=== PATIENT | male | born 1940 | race Caucasian/White ===

== ENCOUNTER → 2016-06-08 | Outpatient (CLI) | payer MEDICARE, OTHER ==
[~2016-06-08] MED LIST: ASPI-875 PO; ATOR40TA70 PO; CLOP75TA69 PO; FISH OIL PO; LISI-556 PO; LISI10TA PO; METO25TA PO; METO25TA2 PO; NITR0.3T6 SL; NITR0.4T39 SL; NITR0.6T5 SL; NITR12SP6 SL; OMEG-109 PO; OMEG1CAP51 PO; OMEP20CA12 PO; ONDN4T PO; OXYC-197 PO; OXYC-471 PO; PANT40TA3 PO; PRAV40TA PO; PRAV40TA2 PO
--- NOTE | 2016-06-08 17:00 | Diagnostic Imaging Report ---
PROCEDURE: MRI right joint upper extremity without contrast. TECHNIQUE: Multiplanar, multisequence non contrast-enhanced MRI of the right upper extremity was accomplished. INDICATION: Right shoulder pain. FINDINGS: There is no os acromiale or Hill-Sachs deformity. There is a slightly laterally downsloping configuration of the acromion. There is acromioclavicular joint osteoarthritis with subchondral edema seen and small inferior osteophytes. There is only minimal impression upon the underlying myotendinous junction of the supraspinatus at the level of these osteophytes. The rotator cuff demonstrates mild tendinosis within the distal supraspinatus and infraspinatus tendons with no significant tear. The subscapularis tendon demonstrates an intrasubstance tear within the distal fibers. There is mild medial subluxation of the long head tendon of the supraspinatus towards the tear. There is also mild increased signal within the proximal aspect of this tendon near the glenoid anchor compatible with degeneration or partial intrasubstance tear. The glenoid labrum demonstrates areas of increased signal may relate to degeneration. The muscles around the shoulder have normal signal and bulk. No significant joint effusion. There is minimal amount of fluid in the subacromial subdeltoid bursa. IMPRESSION: 1. There is supraspinatus and infraspinatus tendinosis with no significant tear. 2. Tendinosis and distal intrasubstance tear within the subscapularis associated with medial subluxation of the long head biceps tendon. The proximal long head biceps tendon also demonstrates abnormal internal signal compatible with a partial tear. 3. 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 Dictated by: Dictated on workstation # [id number]
== END ==
LOC: RAD 15:52
PROVIDERS: ATTEND Nurse Practitioner
DX: M75.111 Incomplete rotator cuff tear or rupture of right shoulder, not specified as traumatic (principal)
CPT/HCPCS: 73221

== ENCOUNTER 2016-07-06 11:59 | Outpatient (CLI) | payer MEDICARE, OTHER ==
[~2016-07-06] VITALS: Ht 185.4 cm; Wt 103.9 kg
[~2016-07-06 11:59] MED LIST changes: -OXYC-471 PO
--- OUTSIDE RECORDS SUMMARY | 2016-07-06 12:04 | XMS REPORT | Continuity of Care Document ---
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 03/30/2013 LISETH PRETTY MD Ot 401.9 HYPERTENSION NOS 03/30/2013 LISETH PRETTY MD Ot 411.1 INTERMED CORONARY SYND 03/30/2013 LISETH PRETTY MD Ot 412 OLD MYOCARDIAL INFARCT 03/30/2013 LISETH PRETTY MD Ot 414.01 CORONARY ATHEROSCLEROSIS OF [place] CORON 03/30/2013 LISETH PRETTY MD Ot 433.10 CAROTID ARTERY OCCLUSION W O CEREBRAL IN 03/30/2013 LISETH PRETTY MD Ot 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.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 03/30/2013 LISETH PRETTY MD Ot 996.72 OTH COMPLICATIONS DUE TO OTH CARD DEVICE 03/30/2013 LISETH PRETTY MD Ot V15.82 HISTORY OF TOBACCO USE 03/30/2013 LISETH PRETTY MD Ot V17.3 FAM HX-ISCHEM HEART DIS 03/30/2013 LISETH PRETTY MD Ot V45.82 PERCUTANEOUS TRANSLUM CORON ANGIOPLASTY 10/24/2014 RICHELLE CASE Ot 272.4 10/24/2014 RICHELLE CASE Ot 401.9 10/24/2014 RICHELLE CASE Ot 414.9 10/24/2014 RICHELLE CASE Ot 427.89 10/24/2014 RICHELLE CASE Ot 433.10 10/24/2014 RICHELLE CASE Ot 272.4 10/24/2014 RICHELLE CASE Ot 401.9 10/24/2014 RICHELLE CASE Ot 414.00 10/24/2014 RICHELLE CASE Ot 427.89 10/24/2014 RICHELLE CASE Ot 433.10 09/10/2015 Ot 401.9 HYPERTENSION NOS 09/10/2015 Ot 414.00 CORON ATHEROSCLER NOS TYPE VESSEL, NATIV 09/10/2015 VIKTORIYA ALONZO, CRIS Nelson Ot 272.4 HYPERLIPIDEMIA NEC/NOS 09/10/2015 VIKTORIYA ALONZO, CRIS M Ot 401.9 HYPERTENSION NOS 09/10/2015 VIKTORIYA ALONZO, CRIS M Ot 562.10 DIVERTICULOSIS COLON (W/O MENT OF HEMORR 09/10/2015 VIKTORIYA ALONZO, CRIS M Ot V76.51 SCREEN MAL NEOP-COLON 09/10/2015 VIKTORIYA ALONZO, CRIS M Ot V72.84 EXAM PRE-OPERATIVE NOS 09/10/2015 RICHELLE CASE Ot 272.4 HYPERLIPIDEMIA NEC/NOS 09/10/2015 RICHELLE CASE Ot 278.00 OBESITY, NOS 09/10/2015 RICHELLE CASE Ot 401.9 HYPERTENSION NOS 09/10/2015 RICHELLE CASE Ot 414.00 CORON ATHEROSCLER NOS TYPE VESSEL, NATIV 09/10/2015 RICHELLE CASE Ot 424.1 AORTIC VALVE DISORDER 09/10/2015 RICHELLE CASE Ot 429.9 HEART DISEASE NOS 09/10/2015 RICHELLE CASE Ot 433.10 CAROTID ARTERY OCCLUSION W O CEREBRAL IN 09/10/2015 RICHELLE CASE Ot 782.3 EDEMA 09/10/2015 RICHELLE CASE Ot 272.4 HYPERLIPIDEMIA NEC/NOS 09/10/2015 RICHELLE CASE Ot 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 09/10/2015 RICHELLE CASE Ot 397.0 TRICUSPID VALVE DISEASE 09/10/2015 MARIELLE WARREN RICHELLE Alina Ot 401.9 HYPERTENSION NOS 09/10/2015 MARIELLE WARREN RICHELLE Alina Ot 414.00 CORON ATHEROSCLER NOS TYPE VESSEL, NATIV 09/10/2015 MARIELLE WARREN RICHELLE Alina Ot 433.10 CAROTID ARTERY OCCLUSION W O CEREBRAL IN 09/10/2015 MARIELLE WARREN RICHELLE K Ot 782.3 EDEMA 09/10/2015 MARIELLE WARREN RICHELLE K Ot 793.2 NOSP (ABN) FINDINGS ON RADIOLOGICAL OT 09/10/2015 MARIELLE WARREN RICHELLE K Ot 272.4 HYPERLIPIDEMIA NEC/NOS 09/10/2015 MARIELLE WARREN RICHELLE K Ot 401.9 HYPERTENSION NOS 09/10/2015 MARIELLE WARREN RICHELLE Alina Ot 414.9 CHR ISCHEMIC HRT DIS NOS 09/10/2015 MARIELLE WARREN RICHELLE K Ot 427.89 CARDIAC DYSRHYTHMIAS NEC 09/10/2015 MARIELLE WARREN RICHELLE K Ot 433.10 CAROTID ARTERY OCCLUSION W O CEREBRAL IN 09/10/2015 MARIELLE WARREN RICHELLE K Ot 272.4 HYPERLIPIDEMIA NEC/NOS 09/10/2015 MARIELLE WARREN RICHELLE K Ot 401.9 HYPERTENSION NOS 09/10/2015 MARIELLE WARREN RICHELLE Alina Ot 414.00 CORON ATHEROSCLER NOS TYPE VESSEL, NATIV 09/10/2015 MARIELLE WARREN RICHELLE Alina Ot 427.89 CARDIAC DYSRHYTHMIAS NEC 09/10/2015 MARIELLE WARREN RICHELLE Alina Ot 433.10 CAROTID ARTERY OCCLUSION W O CEREBRAL IN 09/10/2015 CRIS SADLER MD Ot K43.9 VENTRAL HERNIA WITHOUT OBSTRUCTION OR GA 09/10/2015 CRIS SADLER MD Ot Z01.812 ENCOUNTER FOR PREPROCEDURAL LABORATORY E 09/10/2015 CRIS SADLER MD Ot Z11.2 ENCOUNTER FOR SCREENING FOR OTHER BACTER 09/13/2015 CRIS SADLER MD Ot K43.9 VENTRAL HERNIA WITHOUT OBSTRUCTION OR GA 09/13/2015 CRIS SADLER MD Ot Z01.812 ENCOUNTER FOR PREPROCEDURAL LABORATORY E 09/13/2015 CRIS SADLER MD Ot Z11.2 ENCOUNTER FOR SCREENING FOR OTHER BACTER 09/13/2015 VIKTORIYA ALONZO, CRIS Nelson Ot K43.9 VENTRAL HERNIA WITHOUT OBSTRUCTION OR GA 09/14/2015 VIKTORIYA ALONZO, CRIS Nelson Ot K43.9 VENTRAL HERNIA WITHOUT OBSTRUCTION OR GA 09/14/2015 VIKTORIYA ALONZO, CRIS Nelson Ot K43.9 VENTRAL HERNIA WITHOUT OBSTRUCTION OR GA 09/17/2015 Ot 401.9 HYPERTENSION NOS 09/17/2015 Ot 414.00 CORON ATHEROSCLER NOS TYPE VESSEL, NATIV 09/17/2015 VIKTORIYA ALONZO, CRIS Nelson Ot 272.4 HYPERLIPIDEMIA NEC/NOS 09/17/2015 VIKTORIYA ALONZO, CRIS Nelson Ot 401.9 HYPERTENSION NOS 09/17/2015 VIKTORIYA ALONZO, CRIS Nelson Ot 562.10 DIVERTICULOSIS COLON (W/O MENT OF HEMORR 09/17/2015 VIKTORIYA ALONZO, CRIS Nelson Ot V76.51 SCREEN MAL NEOP-COLON 09/17/2015 VIKTORIYA ALONZO, CRIS Nelson Ot V72.84 EXAM PRE-OPERATIVE NOS 09/17/2015 RICHELLE CASE Ot 272.4 HYPERLIPIDEMIA NEC/NOS 09/17/2015 RICHELLE CASE Ot 278.00 OBESITY, NOS 09/17/2015 RICHELLE CASE Ot 401.9 HYPERTENSION NOS 09/17/2015 RICHELLE CASE Ot 414.00 CORON ATHEROSCLER NOS TYPE VESSEL, NATIV 09/17/2015 RICHELLE CASE Ot 424.1 AORTIC VALVE DISORDER 09/17/2015 RICHELLE CASE Ot 429.9 HEART DISEASE NOS 09/17/2015 RICHELLE CASE Ot 433.10 CAROTID ARTERY OCCLUSION W O CEREBRAL IN 09/17/2015 RICHELLE CASE Ot 782.3 EDEMA 09/17/2015 RICHELLE CASE Ot 272.4 HYPERLIPIDEMIA NEC/NOS 09/17/2015 RICHELLE CASE Ot 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 09/17/2015 RICHELLE CASE Ot 397.0 TRICUSPID VALVE DISEASE 09/17/2015 RICHELLE CASE Ot 401.9 HYPERTENSION NOS 09/17/2015 RICHELLE CASE Ot 414.00 CORON ATHEROSCLER NOS TYPE VESSEL, NATIV 09/17/2015 RICHELLE CASE Ot 433.10 CAROTID ARTERY OCCLUSION W O CEREBRAL IN 09/17/2015 RICHELLE CASE Ot 782.3 EDEMA 09/17/2015 RICHELLE CASE Ot 793.2 NOSP (ABN) FINDINGS ON RADIOLOGICAL OT 09/17/2015 RICHELLE CASE Ot 272.4 HYPERLIPIDEMIA NEC/NOS 09/17/2015 RICHELLE CASE Ot 401.9 HYPERTENSION NOS 09/17/2015 RICHELLE CASE Ot 414.9 CHR ISCHEMIC HRT DIS NOS 09/17/2015 RICHELLE CASE Ot 427.89 CARDIAC DYSRHYTHMIAS NEC 09/17/2015 RICHELLE CASE Ot 433.10 CAROTID ARTERY OCCLUSION W O CEREBRAL IN 09/17/2015 RICHELLE CASE Ot 272.4 HYPERLIPIDEMIA NEC/NOS 09/17/2015 RICHELLE CASE Ot 401.9 HYPERTENSION NOS 09/17/2015 RICHELLE CASE Ot 414.00 CORON ATHEROSCLER NOS TYPE VESSEL, NATIV 09/17/2015 RICHELLE CASE Ot 427.89 CARDIAC DYSRHYTHMIAS NEC 09/17/2015 RICHELLE CASE Ot 433.10 CAROTID ARTERY OCCLUSION W O CEREBRAL IN 09/24/2015 VIKTORIYA ALONZO, CRIS Nelson Ot E78.0 PURE HYPERCHOLESTEROLEMIA 09/24/2015 VIKTORIYA ALONZO, CRIS Nelson Ot E86.0 DEHYDRATION 09/24/2015 VIKTORIYA ALONZO, CRIS Nelson Ot I10 ESSENTIAL (PRIMARY) HYPERTENSION 09/24/2015 VIKTORIYA ALONZO, CRIS Nelson Ot I25.10 ATHSCL HEART DISEASE OF [place] CORONARY 09/24/2015 VIKTORIYA ALONZO, CRIS Nelson Ot K21.9 GASTRO-ESOPHAGEAL REFLUX DISEASE WITHOUT 09/24/2015 VIKTORIYA ALONZO, CRIS Nelson Ot K56.0 PARALYTIC ILEUS 09/24/2015 VIKTORIYA ALONZO, CRIS Nelson Ot K91.3 POSTPROCEDURAL INTESTINAL OBSTRUCTION 09/24/2015 VIKTORIYA ALONZO, CRIS Nelson Ot K91.89 OTH POSTPROCEDURAL COMPLICATIONS AND DIS 09/24/2015 VIKTORIYA ALONZO, CRIS Nelson Ot Z87.891 PERSONAL HISTORY OF NICOTINE DEPENDENCE 09/24/2015 VIKTORIYA ALONZO, CRIS Nelson Ot Z95.5 PRESENCE OF CORONARY ANGIOPLASTY IMPLANT 11/10/2015 VIKTORIYA ALONZO, CRIS Nelson Ot K43.9 VENTRAL HERNIA WITHOUT OBSTRUCTION OR GA 02/23/2016 Ot 401.9 HYPERTENSION NOS 02/23/2016 Ot 414.00 CORON ATHEROSCLER NOS TYPE VESSEL, NATIV 02/23/2016 VIKTORIYA ALONZO, CRIS Nelson Ot 272.4 HYPERLIPIDEMIA NEC/NOS 02/23/2016 VIKTORIYA ALONZO, CRIS Nelson Ot 401.9 HYPERTENSION NOS 02/23/2016 VIKTORIYA ALONZO, CRIS Nelson Ot 562.10 DIVERTICULOSIS COLON (W/O MENT OF HEMORR 02/23/2016 VIKTORIYA ALONZO, CRIS Nelson Ot V76.51 SCREEN MAL NEOP-COLON 02/23/2016 VIKTORIYA ALONZO, CRIS Nelson Ot V72.84 EXAM PRE-OPERATIVE NOS 02/23/2016 RICHELLE CASE Ot 272.4 HYPERLIPIDEMIA NEC/NOS 02/23/2016 RICHELLE CASE Ot 278.00 OBESITY, NOS 02/23/2016 RICHELLE CASE Ot 401.9 HYPERTENSION NOS 02/23/2016 RICHELLE CASE Ot 414.00 CORON ATHEROSCLER NOS TYPE VESSEL, NATIV 02/23/2016 RICHELLE CASE Ot 424.1 AORTIC VALVE DISORDER 02/23/2016 RICHELLE CASE Ot 429.9 HEART DISEASE NOS 02/23/2016 RICHELLE CASE Ot 433.10 CAROTID ARTERY OCCLUSION W O CEREBRAL IN 02/23/2016 RICHELLE CASE Ot 782.3 EDEMA 02/23/2016 RICHELLE CASE Ot 272.4 HYPERLIPIDEMIA NEC/NOS 02/23/2016 RICHELLE CASE Ot 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 02/23/2016 RICHELLE CASE Ot 397.0 TRICUSPID VALVE DISEASE 02/23/2016 RICHELLE CASE Ot 401.9 HYPERTENSION NOS 02/23/2016 RICHELLE CASE Ot 414.00 CORON ATHEROSCLER NOS TYPE VESSEL, NATIV 02/23/2016 RICHELLE CASE Ot 433.10 CAROTID ARTERY OCCLUSION W O CEREBRAL IN 02/23/2016 RICHELLE CASE Ot 782.3 EDEMA 02/23/2016 RICHELLE CASE Ot 793.2 NOSP (ABN) FINDINGS ON RADIOLOGICAL OT 02/23/2016 RICHELLE CASE Ot 272.4 HYPERLIPIDEMIA NEC/NOS 02/23/2016 RICHELLE CASE Ot 401.9 HYPERTENSION NOS 02/23/2016 RICHELLE CASE Ot 414.9 CHR ISCHEMIC HRT DIS NOS 02/23/2016 RICHELLE CASE Ot 427.89 CARDIAC DYSRHYTHMIAS NEC 02/23/2016 RICHELLE CASE Ot 433.10 CAROTID ARTERY OCCLUSION W O CEREBRAL IN 02/23/2016 RICHELLE CASE Ot 272.4 HYPERLIPIDEMIA NEC/NOS 02/23/2016 RICHELLE CASE Ot 401.9 HYPERTENSION NOS 02/23/2016 RICHELLE CASE Ot 414.00 CORON ATHEROSCLER NOS TYPE VESSEL, NATIV 02/23/2016 RICHELLE CASE Ot 427.89 CARDIAC DYSRHYTHMIAS NEC 02/23/2016 RICHELLE CASE Ot 433.10 CAROTID ARTERY OCCLUSION W O CEREBRAL IN 02/23/2016 RICHELLE CASE Ot E78.2 MIXED HYPERLIPIDEMIA 02/23/2016 RICHELLE CASE Ot I10 ESSENTIAL (PRIMARY) HYPERTENSION 02/23/2016 RICHELLE CASE Ot I25.10 ATHSCL HEART DISEASE OF [place] CORONARY 02/23/2016 RICHELLE CASE Ot R60.0 LOCALIZED EDEMA 03/14/2016 RICHELLE CASE Ot E78.2 MIXED HYPERLIPIDEMIA 03/14/2016 RICHELLE CASE Ot I10 ESSENTIAL (PRIMARY) HYPERTENSION 03/14/2016 RICHELLE CASE Ot I25.10 ATHSCL HEART DISEASE OF [place] CORONARY 03/14/2016 RICHELLE CASE Ot R60.0 LOCALIZED EDEMA 03/17/2016 RICHELLE CASE Ot E78.2 MIXED HYPERLIPIDEMIA 03/17/2016 RICHELLE CASE Ot I10 ESSENTIAL (PRIMARY) HYPERTENSION 03/17/2016 RICHELLE CASE Ot I25.10 ATHSCL HEART DISEASE OF [place] CORONARY 03/17/2016 RICHELLE CASE Ot R60.0 LOCALIZED EDEMA 03/23/2016 RICHELLE CASE Ot E78.2 MIXED HYPERLIPIDEMIA 03/23/2016 RICHELLE CASE Ot I10 ESSENTIAL (PRIMARY) HYPERTENSION 03/23/2016 RICHELLE CASE Ot I25.10 ATHSCL HEART DISEASE OF [place] CORONARY 03/23/2016 RICHELLE CASE Ot R60.0 LOCALIZED EDEMA 03/29/2016 LISETH PRETTY MD Ot E78.5 HYPERLIPIDEMIA, UNSPECIFIED 03/29/2016 LISETH PRETTY MD, Ot I10 ESSENTIAL (PRIMARY) HYPERTENSION 03/29/2016 LISETH PRETTY MD Ot I25.10 ATHSCL HEART DISEASE OF [place] CORONARY 03/29/2016 LISETH PRETTY MD Ot I25.2 OLD MYOCARDIAL INFARCTION 03/29/2016 LISETH PRETTY MD Ot I25.5 ISCHEMIC CARDIOMYOPATHY 03/29/2016 LISETH PRETTY MD Ot 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 03/29/2016 LISETH PRETTY MD Ot I50.22 CHRONIC SYSTOLIC (CONGESTIVE) HEART FAIL 03/29/2016 LISETH PRETTY MD Ot Z79.02 GROUP HOME (CURRENT) USE OF ANTITHROMBOTI 03/29/2016 LISETH PRETTY MD, Ot Z79.899 OTHER WEB MARKETING ASSISTANT (CURRENT) DRUG THERAPY 03/29/2016 LISETH PRETTY MD Ot Z95.5 PRESENCE OF CORONARY ANGIOPLASTY IMPLANT 04/11/2016 RICHELLE CASE Ot E78.2 MIXED HYPERLIPIDEMIA 04/11/2016 RICHELLE CASE Ot I10 ESSENTIAL (PRIMARY) HYPERTENSION 04/11/2016 RICHELLE CASE Ot I25.10 ATHSCL HEART DISEASE OF [place] CORONARY 04/11/2016 RICHELLE CASE Ot R60.0 LOCALIZED EDEMA 04/13/2016 RICHELLE CASE Ot E78.2 MIXED HYPERLIPIDEMIA 04/13/2016 RICHELLE CASE Ot I10 ESSENTIAL (PRIMARY) HYPERTENSION 04/13/2016 RICHELLE CASE Ot I25.10 ATHSCL HEART DISEASE OF [place] CORONARY 04/13/2016 RICHELLE CASE Ot R60.0 LOCALIZED EDEMA 05/04/2016 LISETH PRETTY MD Ot E78.5 HYPERLIPIDEMIA, UNSPECIFIED 05/04/2016 LISETH PRETTY MD, Ot I10 ESSENTIAL (PRIMARY) HYPERTENSION 05/04/2016 LISETH PRETTY MD Ot I25.10 ATHSCL HEART DISEASE OF [place] CORONARY 05/04/2016 LISETH PRETTY MD Ot I25.2 OLD MYOCARDIAL INFARCTION 05/04/2016 LISETH PRETTY MD Ot I25.5 ISCHEMIC CARDIOMYOPATHY 05/04/2016 LISETH PRETTY MD Ot 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 05/04/2016 LISETH PRETTY MD Ot I50.22 CHRONIC SYSTOLIC (CONGESTIVE) HEART FAIL 05/04/2016 LISETH PRETTY MD Ot Z79.02 GROUP HOME (CURRENT) USE OF ANTITHROMBOTI 05/04/2016 LISETH PRETTY MD Ot Z79.899 OTHER WEB MARKETING ASSISTANT (CURRENT) DRUG THERAPY 05/04/2016 LISETH PRETTY MD Ot Z95.5 PRESENCE OF CORONARY ANGIOPLASTY IMPLANT 06/14/2016 SAMANTHA HARP Ot M75.111 INCOMPLETE ROTATR-CUFF TEAR/RUPTR OF R S 07/03/2016 SAMANTHA HARP Ot M75.111 INCOMPLETE ROTATR-CUFF TEAR/RUPTR OF R S Procedures Code Description Performed By Performed On 37.22 03/29/2013 88.53 03/29/2013 88.56 03/29/2013 Results Test Result Range Methicillin resistant Staphylococcus aureus (MRSA) screening culture - 08:40 Methicillin resistant Staphylococcus aureus (MRSA) screening culture NEG NRG Encounters ACCT No. Visit Date/Time Discharge Status Pt. Type Provider Facility Loc./Unit Complaint [id number] 03/29/2016 07:48:00 2015 14:58:00 DIS Outpatient LISETH PRETTY MD [facility] CATH CAD,HTN [id number] 09/17/2015 20:53:00 2015 12:40:00 DIS Inpatient CRIS SADLER MD Via [address] PARTIAL SBO VS ILEUS,DEHYDRATION,S/P HERNIA REPAIR [id number] 09/13/2015 11:22:00 2015 17:35:00 DIS Outpatient CRIS SADLER MD [facility] VENTRAL HERNIA [id number] 09/10/2015 09:59:00 2015 11:43:00 DIS Outpatient CRIS SADLER MD [facility] PREOP VENTRAL HERNIA [id number] 09/21/2014 07:49:00 2014 23:59:59 CLS Outpatient RICHELLE CASE [facility] CARD BRADYCARDIA,CAD [id number] 09/17/2014 07:54:00 2014 23:59:59 CLS Outpatient RICHELLE CASE [facility] CARD BRADYCARDIA,CAD,MINNA [id number] 03/29/2013 16:32:00 2012 11:15:00 DIS Inpatient LISETH PRETTY MD [facility] CSD CHEST PAIN [id number] 03/26/2013 11:50:00 2012 23:59:59 CLS Outpatient RICHELLE CASE [facility] RAD CAD,HTN,HLP [id number] 03/25/2013 10:34:00 2012 23:59:59 CLS Outpatient RICHELLE CASE [facility] CARD CAD,HTN,HLP, [id number] 12/23/2012 09:39:00 2012 23:59:59 [id number] 12/18/2012 08:19:00 2012 23:59:59 CLS Outpatient VIKTORIYA ALONZO, CRIS Nelson [facility] PREOP SCREENING [id number] 06/08/2016 15:52:00 ACT Outpatient SAMANTHA HARP [facility] RAD RTC PARTIAL RIGHT [id number] 03/22/2016 11:05:00 ACT Outpatient RICHELLE BELL [facility] CARD CAD,HTN [id number] 02/22/2016 10:08:00 ACT Outpatient RICHELLE BELL [facility] CARD CAD,HTN [id number] 01/25/2011 10:30:00 Document Registration
[2016-07-06 12:17] VITALS: BP 136/69
== END 2016-07-06 12:44 | disposition home or self-care (01) ==
LOC: PREOP 11:59
PROVIDERS: ATTEND Orthopaedic Surgery
DX: Z01.818 Encounter for other preprocedural examination (principal); Z11.2 Encounter for screening for other bacterial diseases; S43.491A Other sprain of right shoulder joint, initial encounter; X58.XXXA Exposure to other specified factors, initial encounter; Y99.8 Other external cause status
CPT/HCPCS: 87081

== ENCOUNTER 2016-07-12 06:55 | Day surgery (SDC) | payer MEDICARE, OTHER ==
--- NOTE | 2016-07-07 08:56 | HISTORY AND PHYSICAL ---
DICTATING PHYSICIAN: Dr. Tovar DATE OF ADMISSION: 07/12/2016 Outpatient surgery for right shoulder arthroscopy and biceps tenodesis. HISTORY: The patient is a 75-year-old, [id number] gentleman with complaints of right shoulder pain. He underwent an MRI which demonstrated partial thickness tear of the long head of the biceps. He reports pain with overhead activities. He reports activity limitations. He has undergone extensive conservative measures without relief and due to functional impairment the patient has elected to proceed with surgical intervention. REVIEW OF SYSTEMS: No chest pain, no shortness of breath. No dysuria. PAST MEDICAL HISTORY: 1. Myocardial infarction. 2. Coronary artery disease. 3. Coronary stent placement. 4. Reflux. 5. Hypercholesterolemia. PAST SURGICAL HISTORY: 1. Left heart catheterization with stent placement. 2. Left knee. 3. Hiatal hernia. FAMILY HISTORY: Significant for lung cancer, coronary artery disease and diabetes. PRIMARY CARE PROVIDER: Dr. Daniels. MEDICATIONS: 1. Aspirin. 2. Lisinopril. 3. Prilosec. 4. Pravastatin. 5. Nitrostat. 6. Plavix. ALLERGIES: No known drug allergies. SOCIAL HISTORY: The patient is a former smoker with a greater than forty-year pack history, he denies alcohol use. PHYSICAL EXAMINATION: The patient's well-developed, well-nourished, in no acute distress. HEENT: Normocephalic, atraumatic. Pupils are equal, round, and reactive, oropharynx is clear. NECK: Supple with no lymphadenopathy. LUNGS: Clear to auscultation bilaterally. HEART: Regular rate and rhythm. ABDOMEN: Soft, nontender, nondistended. EXTREMITY EXAM: The right shoulder demonstrates tenderness over his bicipital groove. He has a mildly positive Neer and Stubbs sign. There is no gross weakness to abduction or external rotation. He has pain with Speed's maneuver. He has symmetric forward elevation, external and internal rotation of the right shoulder with negative Spurling's maneuver. IMPRESSION: Right bicipital tendinosis with partial tearing. PLAN: Right shoulder arthroscopy with biceps tenodesis. The risks, benefits, options, ramifications of recovery were discussed in length with the patient and he understands and wishes to proceed. Job ID: [id number] Dictated Date: 07/06/2016 15:49:35 Document Control Specialist Date: 07/07/2016 08:50:36/isabel
[~2016-07-12] VITALS: Ht 185.4 cm; Wt 103.9 kg
--- NOTE | 2016-07-12 07:26 | Progress Note-Pre Operative ---
Pre-Operative Progress Note H&P Reviewed The H&P was reviewed, patient examined and no changes noted. Date H&P Reviewed: Jul 12, 2016 Time H&P Reviewed: 07:26 Pre-Operative Diagnosis: right shoulder SLAP tear ZARA ASH MD Jul 12, 2016 07:26
--- NOTE | 2016-07-12 07:27 | Progress Note-Post Operative ---
Post-Operative Progess Note Asset Manager Jakub Quintanilla Pre-Operative Diagnosis right shoulder SLAP tear Post-Operative Diagnosis right shoulder SLAP tear, labral tear and glenoid chondromalacia Post-Op Procedure Note Date of Procedure: Jul 12, 2016 Name of Procedure: right shoulder arthroscopic labral debridement and chondroplasty of the glenoid and right long head of biceps tenodesis Anesthesia Type GETA plus interscalene Estimated blood loss (mL): minimal Packing: none Specimen(s) collected none ZARA ASH MD Jul 12, 2016 07:27
[2016-07-12] MEDS ORDERED: BUPIVACAINE 0.25% 30 ML (SENSORCAINE) VIAL ONE (07:29)
[2016-07-12] MEDS ORDERED: morphine PF (DURAMORPH) 10 MG/10 ML AMP ONE (07:29)
[2016-07-12] MEDS ORDERED: BUPIVACAINE 0.5% 30 ML (SENSORCAINE) VIAL ONE (07:29)
[2016-07-12] MEDS ORDERED: NS (IVPB) 50 ML ONE (07:31)
[2016-07-12] MEDS ORDERED: ceFAZolin 1,000 MG (ANCEF) VIAL ONE (07:31)
[2016-07-12] MEDS ORDERED: FAMOTIDINE 20MG/2ML IV (PEPCID) ONE (07:31)
[2016-07-12] MEDS ORDERED: ceFAZolin 1 GM/NS 50 ML IVPB IV ONE ×2 (07:45)
[2016-07-12] MEDS ORDERED: FAMOTIDINE 20MG/2ML IV (PEPCID) IV ONE (07:45)
[2016-07-12] MEDS ORDERED: oxyCODONE/APAP 5/325MG (PERCOCET 5) TABLET PO PRN (07:45)
[2016-07-12] MEDS: LACTATED RINGERS 1,000 ML IV PRN ×2 (07:56→09:20)
[2016-07-12 08:05] VITALS: BP 140/76
[2016-07-12] MEDS ORDERED: SEVOFLURANE (ULTANE) 15 ML INHAL SOLN ONE ×2 (08:27→10:03)
[2016-07-12] MEDS ORDERED: LIDOCAINE PF 2% 10 ML (XYLOCAINE) AMP ONE (08:27)
[2016-07-12] MEDS ORDERED: ONDANSETRON 4 MG/2 ML (SDV) Z0FRAN ONE (08:27)
[2016-07-12] MEDS ORDERED: DEXAMETHASONE PF 10 MG/ML (DECADRON) VIAL ONE (08:27)
[2016-07-12] MEDS ORDERED: LACTATED RINGERS 1,000 ML IV ONE ×2 (08:27→09:28)
[2016-07-12] MEDS ORDERED: ROCURONIUM 50 MG/5 ML (ZEMURON) VIAL IV ONE (08:27)
[2016-07-12] MEDS ORDERED: proPOfol 200 MG/20 ML (DIPRIVAN) VIAL IV ONE (08:27)
[2016-07-12] MEDS ORDERED: MIDAZOLAM 2 MG/2 ML (VERSED) VIAL ONE (08:28)
[2016-07-12] MEDS ORDERED: fentaNYL INJECTION 100 MCG/2 ML AMP ONE ×2 (08:28→10:33)
[2016-07-12] MEDS ORDERED: ATROPINE INJ 0.4 MG/ML SDV ONE (09:28)
[2016-07-12] MEDS ORDERED: NEOSTIGMINE (BLOXIVERZ ) 1 MG/1ML 10 ML VIAL ONE (09:47)
[2016-07-12] MEDS ORDERED: GLYCOPYRROLATE 0.2 MG/ML (ROBINUL) 2 ML VIAL ONE (09:47)
[2016-07-12] MEDS ORDERED: morphine INJ 10 MG/ML 1ML (SYR OR VIAL) ONE (10:12)
[2016-07-12] MEDS: morphine INJ 10 MG/ML 1ML (SYR OR VIAL) IV PRN ×2 (10:15→10:20)
[2016-07-12] MEDS ORDERED: ONDANSETRON 4 MG/2 ML (SDV) Z0FRAN IV ONE (10:30)
[2016-07-12] MEDS: fentaNYL INJECTION 100 MCG/2 ML AMP IV PRN ×2 (10:30→10:35)
[2016-07-12 11:10] VITALS: BP 161/82
[2016-07-12 11:40] VITALS: BP 155/77
[2016-07-12 12:20] VITALS: BP 159/77
[2016-07-12] MEDS ORDERED: OXYC-471 PO (12:41)
[2016-07-12 13:10] VITALS: BP 159/77
--- NOTE | 2016-07-13 13:12 | OPERATIVE REPORT ---
PROCEDURE PHYSICIAN: ZARA ASH DATE OF PROCEDURE: 07/12/2016 PREOPERATIVE DIAGNOSES: Right shoulder SLAP tear. POSTOPERATIVE DIAGNOSES: 1. Right shoulder SLAP tear. 2. Right shoulder labral tear. 3. Right shoulder glenoid chondromalacia. PROCEDURE: 1. Right shoulder biceps tenodesis. 2. Right shoulder arthroscopic labral debridement. 3. Right shoulder arthroscopic chondroplasty of the glenoid. SURGEON: Guy [employer]ORATORY TECHNICIAN: Jakub Quintanilla who assisted throughout the procedure and closed the incisions. ANESTHESIA: General endotracheal by Saray Lyman CRNA. ESTIMATED BLOOD LOSS: Minimal. DRAINS: None. COMPLICATIONS: None. POSTOPERATIVE PLAN: Sling wear and passive range of motion for 2 weeks. The patient was transported to the recovery room, awake, in stable condition. STATEMENT OF MEDICAL NECESSITY: The patient is a 75-year-old, hyuur-onul-aaoqevvt gentleman with complaints of right shoulder pain, worse with overhead activities. He underwent an MRI which revealed a type II SLAP tear. He had undergone treatment with injections without relief. He complained of functional impairment and because of this, the patient elected to proceed with surgical intervention. He elected proceed with tenodesis. Examination under anesthesia revealed forward elevation of 170 degrees, external rotation 85 degrees and internal rotation 70 degrees. Arthroscopic findings demonstrated type II SLAP tear. In addition, there was a flap tear of the anterior labrum at the 4 o'clock position with no further detachment of the capsule labral complex. There was grade 2 chondral flaps and the inferior half of the glenoid in a 10 x 10 area. The humeral head demonstrated no gross chondral abnormalities. The rotator cuff was intact throughout. PROCEDURE: After risks and benefits of procedure were discussed and questions were answered an informed consent was signed and placed on chart. The operative site was confirmed in the preoperative holding and initialed by the surgeon. The patient was then transported to the operating room and after adequate levels of general endotracheal anesthetic were obtained, a timeout was called confirming the operative site. Examination under anesthesia was performed with the above findings noted. The right shoulder and upper extremity were prepped and draped in the usual sterile fashion. The shoulder was injected 20 mL of fluid and a standard posterior portal placed. Under direct visualization anterior portal was created in the interval between the biceps, subscapularis and glenoid. The biceps anchor was released and the stump was debrided with a shaver. The anterior labral flap was debrided with a shaver as well. The glenoid chondromalacia was debrided with back to a stable edge and probed with no further tearing noted. The shoulder joint was copiously irrigated. The portal sites were closed with 3-0 nylon in simple interrupted fashion. An incision was then made on the upper arm just distal to the pectoralis major insertion. The underlying soft tissues were carefully dissected. The fascia was incised exposing the long head of the biceps which was then retracted into the incision. This was then whipstitch from the musculotendinous junction extending proximally approximately 2 cm. A unicortical drill hole was then placed in cortex of the humerus just distal to the pectoralis at the groove. The Endo-button was then passed unicortically and flipped. The tendon was then brought down to the humeral surface and oversewn on itself with excellent purchase obtained. The elbow and shoulder were taken through a range of motion. Repair was found to be stable. The excess tendon was excised. The wound was copiously irrigated. 2-0 Vicryl was used to reapproximate subcutaneous tissue and the skin was closed with 4-0 nylon in a running, alternating horizontal mattress fashion. The incisions were infiltrated with plain Marcaine. The shoulder was injected with Duramorph. A soft dressing and sling were applied and the patient was transported to recovery room, awake, in stable condition. Job ID: [id number] Dictated Date: 07/12/2016 09:55:55 Director Of Housing And Energy Services Date: 07/13/2016 13:03:40 / isabel
== END 2016-07-12 13:10 | disposition home or self-care (01) ==
LOC: SDC 06:55
PROVIDERS: ATTEND Orthopaedic Surgery
DX: M24.211 Disorder of ligament, right shoulder (principal); M94.211 Chondromalacia, right shoulder

== ENCOUNTER 2017-04-16 11:56 | Outpatient (CLI) | payer MEDICARE, OTHER ==
[~2017-04-16] VITALS: Ht 185.4 cm; Wt 99.8 kg
[~2017-04-16 11:56] MED LIST changes: +OXYC-471 PO
[2017-04-16] MEDS ORDERED: ASPI-999 PO (12:07)
== END 2017-04-16 12:14 | disposition home or self-care (01) ==
LOC: PREOP 11:56
PROVIDERS: ATTEND Orthopaedic Surgery
DX: Z01.818 Encounter for other preprocedural examination (principal); L72.9 Follicular cyst of the skin and subcutaneous tissue, unspecified
CPT/HCPCS: 87081

== ENCOUNTER 2017-04-25 08:50 | Day surgery (SDC) | payer MEDICARE, OTHER ==
--- NOTE | 2017-04-17 10:33 | HISTORY AND PHYSICAL ---
DATE OF SERVICE: DATE OF ADMISSION: 04/25/2017 ADMISSION HISTORY AND PHYSICAL LAST-FOUR SOCIAL SECURITY: 2713. REASON FOR ADMISSION: This will be for outpatient surgery on 04/25/2017 for right long finger cyst excision. HISTORY OF PRESENT ILLNESS: The patient is a 76-year-old right hand dominant gentleman with complaints of increasingly painful right long finger cyst on the palmar aspect of his hand. He reports it has been the base of his long finger over the last 2 months, but it is doubled in size. Reports it is tender and he has difficulty with gripping and squeezing activities. He denies any trauma, but due to functional impairment, the patient elected to pursue surgical intervention. REVIEW OF SYSTEMS: No chest pain, no shortness of breath. No dysuria. PAST MEDICAL HISTORY: Myocardial infarction, coronary artery disease, reflux, and hypercholesterolemia. PAST SURGICAL HISTORY: Stent placement, left knee arthroscopy, herniorrhaphy, and cardiac catheterization. FAMILY HISTORY: Lung cancer, coronary artery disease. PRIMARY CARE PROVIDER: Dr. Daniels. MEDICATIONS: Aspirin, lisinopril, Nitrostat, Plavix, hydrocodone, oxycodone, pantoprazole, atorvastatin. ALLERGIES: No known drug allergies. SOCIAL HISTORY: The patient is a former smoker with greater than 40-year pack history. Denies alcohol use. RADIOGRAPHS: Negative. PHYSICAL EXAMINATION: GENERAL: The patient is well-developed, well-nourished, in no acute distress. HEENT: Normocephalic, atraumatic. Pupils are equal, round, reactive to light. Oropharynx is clear. NECK: Supple, no lymphadenopathy. LUNGS: Clear to auscultation bilaterally. HEART: Regular rate and rhythm. ABDOMEN: Soft, nontender, nondistended. EXTREMITIES: Right long finger demonstrates a pea-sized nodule at the base of his long finger near the MCP flexion crease. This is tender to palpation. It does not appear to move with flexion or extension of the finger. He has no limitations to motion of his MCP, DIP or PIP joints. There is no erythema or compression. 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 PLAN: Right long finger mass excision. The risks, benefits, options, ramifications and recovery were discussed at length with the patient. He understands and wished to proceed. Job ID: [id number] DocumentID: [id number] Dictated Date: 04/17/2017 09:16:17 [employer] Cutter Date: 04/17/2017 10:32:15 Dictated By: ZARA ASH MD
[~2017-04-25] VITALS: Ht 185.4 cm; Wt 99.8 kg
[~2017-04-25 08:50] MED LIST changes: +ASPI-999 PO
[2017-04-25] MEDS ORDERED: ceFAZolin 1 GM/NS 50 ML IVPB IV ONE ×2 (09:00)
--- NOTE | 2017-04-25 09:20 | Progress Note-Pre Operative ---
Pre-Operative Progress Note H&P Reviewed The H&P was reviewed, patient examined and no changes noted. Date Seen by Provider: Apr 25, 2017 Time Seen by Provider: 09:19 Date H&P Reviewed: Apr 25, 2017 Time H&P Reviewed: 09:19 Pre-Operative Diagnosis: right long finger ganglion cyst ZARA ASH MD Apr 25, 2017 09:20
--- NOTE | 2017-04-25 09:21 | Progress Note-Post Operative ---
Post-Operative Progess Note Surgeon (s)/Scorer Helper (s) Surgeon ZARA ASH MD Scorer Helper: Jakub Quintanilla Pre-Operative Diagnosis right long finger ganglion cyst Post-Operative Diagnosis right long finger ganglion cyst Procedure & Operative Findings Date of Procedure 04/25/17 Procedure Performed/Findings right long finger ganglion cyst excision Anesthesia Type Estimated Blood Loss Estimated blood loss (mL): minimal Specimens/Packing Specimens Removed finger mass Packing: none ZARA ASH MD Apr 25, 2017 09:21
[2017-04-25] MEDS ORDERED: BUPIVACAINE 0.25% 30 ML (SENSORCAINE) VIAL ONE (09:22)
[2017-04-25 09:26] VITALS: BP 143/76
[2017-04-25] MEDS ORDERED: FAMOTIDINE 20MG/2ML IV (PEPCID) IV ONE (09:30)
[2017-04-25] MEDS ORDERED: HYDROcodone/APAP 7.5 MG/325 MG (LORTAB, LORCET PLUS) TABLET PO PRN (09:30)
[2017-04-25] MEDS: LACTATED RINGERS 1,000 ML IV PRN ×2 (09:36→11:05)
[2017-04-25] MEDS ORDERED: ONDANSETRON 4 MG/2 ML (SDV) Z0FRAN ONE (10:12)
[2017-04-25] MEDS ORDERED: MIDAZOLAM 2 MG/2 ML (VERSED) VIAL ONE (10:12)
[2017-04-25] MEDS ORDERED: PROPOFOL INJECTION 50 ML IV ONE (10:12)
[2017-04-25] MEDS ORDERED: fentaNYL INJECTION 100 MCG/2 ML AMP ONE (10:12)
[2017-04-25] MEDS ORDERED: proPOfol 200 MG/20 ML (DIPRIVAN) VIAL IV ONE (10:49)
[2017-04-25 11:50] VITALS: BP 123/82
[2017-04-25] MEDS ORDERED: HYDR-3816 PO (12:07)
[2017-04-25 12:20] VITALS: BP 110/73
[2017-04-25 12:50] VITALS: BP 124/70
[2017-04-25 13:06] VITALS: BP 124/70
--- NOTE | 2017-04-25 17:37 | OPERATIVE REPORT ---
DATE OF SERVICE: 04/25/2017 PREOPERATIVE DIAGNOSIS: Right long finger ganglion cyst (0.5 x 0.5 cm). POSTOPERATIVE DIAGNOSIS: Right long finger ganglion cyst (0.5 x 0.5 cm). PROCEDURE: Right long finger ganglion cyst excision. SURGEON: Bucky Ash MD CUSTOMER FIELD REPRESENTATIVE: Jakub Quintanilla, who assisted throughout the procedure and closed the incision. ANESTHESIA; General endotracheal by Saray Lyman CRNA. TOURNIQUET TIME: 7 minutes at 250 mmHg. ESTIMATED BLOOD LOSS: Minimal. DRAINS: None. COMPLICATIONS: None. POSTOPERATIVE PLAN: Range of motion . The patient was transported to the recovery room, awake and in stable condition. STATEMENT OF MEDICAL NECESSITY: The patient is a 76-year-old right hand dominant gentleman with complaints of swelling, pain and a mass at the base of his right long finger near his metacarpophalangeal joint. He reports that this had increased in size and due to increase in size and pain, the patient elected to proceed with surgical excision. PROCEDURE: After risks and benefits of the procedure were discussed and questions were answered, an informed consent was signed and placed on chart. The operative site was confirmed in the preoperative holding area initialed by the surgeon. The patient then transferred to the operating room. After adequate levels of general endotracheal anesthetic were obtained, a timeout was called confirming the site. The right upper extremity was then prepped and draped in the usual sterile fashion with arm elevated. Tourniquet inflated to 250 mmHg. A V-shaped incision was made over the mass. The underlying soft tissues were carefully dissected. This did arise from the flexor tendon sheath with approximately 0.5 x 0.5 cm in size. It was clear and appeared to be cystic in nature. It was excised in total and then the edges were cauterized. This was sent for pathologic examination. The tourniquet was deflated. The wound was copiously irrigated. Incision was closed with 4-0 nylon in vertical mattress interrupted fashion. The incision was infiltrated with plain Marcaine. Soft dressing was applied and the patient was transported to recovery room, awake and in stable condition. Job ID: [id number] DocumentID: [id number] Dictated Date: 04/25/2017 11:02:22 Aircraft Instrument Repairer Date: 04/25/2017 17:36:33 Dictated By: BUCKY ASH MD
== END 2017-04-25 13:06 | disposition home or self-care (01) ==
LOC: SDC 08:50
PROVIDERS: ATTEND Orthopaedic Surgery
DX: M67.441 Ganglion, right hand (principal); I25.2 Old myocardial infarction; I25.10 Atherosclerotic heart disease of native coronary artery without angina pectoris; K21.9 Gastro-esophageal reflux disease without esophagitis; E78.00 Pure hypercholesterolemia, unspecified; Z79.82 Long term (current) use of aspirin; Z79.899 Other long term (current) drug therapy; I10 Essential (primary) hypertension; Z95.5 Presence of coronary angioplasty implant and graft; Z87.891 Personal history of nicotine dependence

== ENCOUNTER → 2017-12-11 | Outpatient (CLI) | payer MEDICARE, OTHER ==
[~2017-12-11] MED LIST changes: +HYDR-34 PO
--- NOTE | 2017-12-11 15:54 | Diagnostic Imaging Report ---
PROCEDURE: MRI right joint lower extremity without contrast. TECHNIQUE: Multiplanar, multisequence MR imaging of the right knee was performed without contrast. COMPARISON: None available. INDICATION: Right knee pain. FINDINGS: MENISCI Medial meniscus: Complex tear in the posterior horn of the medial meniscus includes a near-complete radial tear through the free edge. Lateral meniscus: Degenerative free edge tearing throughout the lateral meniscus. LIGAMENTS ACL: Intact. PCL: Intact. MCL: Intact. LCL: The lateral collateral ligamentous complex is intact. EXTENSOR MECHANISM The extensor mechanism is intact. CARTILAGE Medial compartment: Diffuse full-thickness articular cartilage loss throughout the weightbearing aspect of the medial compartment. Lateral compartment: Multifocal full-thickness chondral fissuring throughout the lateral compartment. Patellofemoral compartment: Broad areas of full-thickness cartilage loss and fissuring throughout the patella and femoral trochlea. BONE No fracture, stress fracture or osteonecrosis. SOFT TISSUE Moderate-sized knee joint effusion. Multiple mineralized intra-articular bodies are present. The largest is located at the anterior aspect of the intercondylar notch measuring 1.4 x 1.2 cm. IMPRESSION: 1. Severe tricompartmental knee osteoarthritis with broad areas of full-thickness articular cartilage loss. Numerous mineralized intra-articular loose bodies are also present. 2. Associated degenerative complex tearing in the medial meniscus. This includes a near-complete radial tear in the posterior horn. 3. Moderate-sized knee joint effusion with synovitis is likely degenerative/reactive in nature. Dictated by: Dictated on workstation # [id number]
== END ==
LOC: RAD 13:18
PROVIDERS: ATTEND Nurse Practitioner Family
DX: S83.241A Other tear of medial meniscus, current injury, right knee, initial encounter (principal); M17.11 Unilateral primary osteoarthritis, right knee
CPT/HCPCS: 73721

== ENCOUNTER 2018-03-28 09:20 | Outpatient (CLI) | payer MEDICARE, OTHER ==
[~2018-03-28] VITALS: Ht 182.9 cm; Wt 106.6 kg
[~2018-03-28 09:20] MED LIST changes: -OXYC-197 PO; +OXYC1TAB87 PO
--- NOTE | 2018-03-28 10:33 | Diagnostic Imaging Report ---
INDICATION: Preoperative evaluation prior to right total knee arthroplasty. PA and lateral views of the chest are obtained with comparison made study of 03/29/2016. FINDINGS: There is continued elevation of right hemidiaphragm. Increased density in right perihilar region may be due to atelectasis or scarring. No pneumothorax is seen. There is no evidence of significant pleural fluid. IMPRESSION: Elevation right hemidiaphragm with increased density in right hilar region which may be due to atelectasis or scarring. This has progressed since the previous study and consideration should be given to CT imaging of the chest for assessment. Dictated by: Dictated on workstation # [id number]
[2018-03-28 10:34] LABS: BASOPHILS % (AUTO) 0 % (0-10); EOSINOPHILS # (AUTO) 0.2 10^3/uL (0.0-0.3); EOSINOPHILS % (AUTO) 4 % (0-10); HEMATOCRIT 43 % (40-54); HEMOGLOBIN 14.2 G/DL (13.3-17.7); LYMPHOCYTES # (AUTO) 1.1 X 10^3 (1.0-4.0); LYMPHOCYTES % (AUTO) 25 % (12-44); MEAN CORPUSCULAR HEMOGLOBIN 31 PG (25-34); MEAN CORPUSCULAR HGB CONC 33 G/DL (32-36); MEAN CORPUSCULAR VOLUME 93 FL (80-99); MEAN PLATELET VOLUME 10.5 FL (7.4-10.4); MONOCYTES # (AUTO) 0.6 X 10^3 (0.0-1.0); MONOCYTES % (AUTO) 13 % (0-12); NEUTROPHILS # (AUTO) 2.7 X 10^3 (1.8-7.8); NEUTROPHILS % (AUTO) 58 % (42-75); PLATELET COUNT 179 10^3/uL (130-400); RED BLOOD COUNT 4.64 10^6/uL (4.35-5.85); RED CELL DISTRIBUTION WIDTH 13.9 % (10.0-14.5); WHITE BLOOD COUNT 4.5 10^3/uL (4.3-11.0)
[2018-03-28 10:40] LABS: BILIRUBIN,URINE NEGATIVE (NEGATIVE); CLARITY,URINE SLIGHTLY CLOUDY; COLOR,URINE YELLOW; GLUCOSE, URINE (UA) NEGATIVE (NEGATIVE); KETONES,URINE NEGATIVE (NEGATIVE); LEUKOCYTE ESTERASE ,URINE NEGATIVE (NEGATIVE); NITRITE,URINE NEGATIVE (NEGATIVE); PH,URINE 6.5 (5-9); PROTEIN,URINE NEGATIVE (NEGATIVE); UROBILINOGEN,URINE NORMAL (NORMAL)
[2018-03-28 10:46] LABS: PROTHROMBIN TIME PATIENT 12.6 SEC (12.2-14.7)
[2018-03-28 10:50] LABS: BACTERIA,URINE TRACE /HPF; SQUAMOUS EPITHELIAL CELL,UR 0-2 /HPF
[2018-03-28 10:56] LABS: ALBUMIN 4.2 GM/DL (3.2-4.5); BILIRUBIN,TOTAL 0.6 MG/DL (0.1-1.0); CALCIUM 9.1 MG/DL (8.5-10.1); CREATININE SERUM 1.18 MG/DL (0.60-1.30); POTASSIUM 4.5 MMOL/L (3.6-5.0); TOTAL PROTEIN 6.4 GM/DL (6.4-8.2)
[2018-03-28 10:57] LABS: ERYTHROCYTE SEDIMENTATION RATE 4 MM/HR (0-30)
[2018-04-03] MEDS ORDERED: OXYC1TAB87 PO (07:36)
== END 2018-03-28 10:30 | disposition home or self-care (01) ==
LOC: PREOP 09:20
PROVIDERS: ATTEND Orthopaedic Surgery
DX: Z01.811 Encounter for preprocedural respiratory examination (principal); Z01.812 Encounter for preprocedural laboratory examination; M17.11 Unilateral primary osteoarthritis, right knee; R53.83 Other fatigue
CPT/HCPCS: 36415; 71046; 80053; 81000; 85025; 85610; 85652; 86850; 86900; 86901; 87081

== ENCOUNTER 2018-04-03 07:20 | Inpatient (IN) | payer MEDICARE, OTHER ==
--- NOTE | 2018-03-25 13:07 | HISTORY AND PHYSICAL ---
DATE OF SERVICE: DATE OF SERVICE AND DATE OF ADMISSION: 04/03/2018. This will be for inpatient admission on 04/03/2018 for right total knee arthroplasty. HISTORY OF PRESENT ILLNESS: The patient is a 77-year-old gentleman with longstanding progressive right knee pain. He has undergone treatment with injections without relief. He reports popping, catching and swelling. Radiographs reveal severe medial patellofemoral arthrosis. He reports activity limitations and no improvement with symptomatic care and therefore he has elected to proceed with total knee arthroplasty. REVIEW OF SYSTEMS: No chest pain or shortness of breath. No dysuria. PAST MEDICAL HISTORY: Myocardial infarction, coronary artery disease, gastric reflux, hypercholesterolemia. PAST SURGICAL HISTORY: Left heart catheterization with stent placement, left total knee arthroplasty, right shoulder arthroscopy, herniorrhaphy. FAMILY HISTORY: Significant for lung cancer, diabetes, coronary artery disease. PRIMARY CARE PROVIDER: Dr. Daniels. MEDICATIONS: Aspirin, lisinopril, Nitrostat, Plavix, pantoprazole and atorvastatin. ALLERGIES: No known drug allergies. SOCIAL HISTORY: The patient is a former smoker with a greater than [id number]-kumb history. Denies alcohol and drug use. PHYSICAL EXAMINATION: GENERAL: The patient is well developed, well nourished, in no acute distress. HEENT: Normocephalic, atraumatic. Pupils are equal, round and reactive to light. Oropharynx is clear. NECK: Supple, no lymphadenopathy. LUNGS: Clear to auscultation bilaterally. HEART: Regular rate and rhythm. ABDOMEN: Soft, nontender, nondistended. EXTREMITIES: Right knee demonstrates varus alignment. He has moderate effusion. He is tender along his medial joint line and has pain medially with Olesya's. Range of motion is 0/0/110. Negative anterior drawer, negative posterior drawer. No varus valgus laxity. He ambulates with an antalgic gait. IMPRESSION: Right knee severe osteoarthritis, unresponsive to conservative measures. PLAN: Right total knee arthroplasty. The risks, benefits, options, ramifications and recovery were discussed at length with the patient. He understands and wishes to proceed. He will require inpatient admission for pain management issues, gait abnormalities, physical therapy and strengthening. Job ID: [id number] DocumentID: [id number] Dictated Date: 03/25/2018 11:28:27 Gas Pump Attendant Date: 03/25/2018 13:06:25 Dictated By: ZARA ASH MD
[~2018-04-03] VITALS: Ht 182.9 cm; Wt 106.6 kg
--- OUTSIDE RECORDS SUMMARY | 2018-04-03 07:27 | XMS REPORT | Continuity of Care Document ---
Author Author [facility] Organization [facility] Address Unknown Phone Unavailable Allergies Active Description Code Type Severity Reaction Onset Reported/Identified Relationship to Patient Clinical Status Yes No Known Drug Allergies [id number] Drug Allergy Unknown N/A 07/06/2016 Medications There is no data. 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 03/30/2013 LISETH PRETTY MD Ot 401.9 HYPERTENSION NOS 03/30/2013 LISETH PRETTY MD Ot 411.1 INTERMED CORONARY SYND 03/30/2013 LISETH PRETTY MD Ot 412 OLD MYOCARDIAL INFARCT 03/30/2013 LISETH PRETTY MD Ot 414.01 CORONARY ATHEROSCLEROSIS OF [place] CORON 03/30/2013 LISETH PRETTY MD Ot 433.10 CAROTID ARTERY OCCLUSION W O CEREBRAL IN 03/30/2013 LISETH PRETTY MD Ot 745.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 03/30/2013 LISETH PRETTY MD Ot 996.72 OTH COMPLICATIONS DUE TO OTH CARD DEVICE 03/30/2013 LISETH PRETTY MD Ot V15.82 HISTORY OF TOBACCO USE 03/30/2013 LISETH PRETTY MD Ot V17.3 FAM HX-ISCHEM HEART DIS 03/30/2013 LISETH PRETTY MD, Ot V45.82 PERCUTANEOUS TRANSLUM CORON ANGIOPLASTY 10/24/2014 [...] TRICUSPID VALVE DISEASE 09/10/2015 MARIELLE WARREN RICHELLE Fuller Ot 401.9 HYPERTENSION NOS 09/10/2015 MARIELLE WARREN RICHELLE Fuller Ot 414.00 CORON ATHEROSCLER NOS TYPE VESSEL, NATIV 09/10/2015 MARIELLE WARREN RICHELLE Fuller Ot 433.10 CAROTID ARTERY OCCLUSION W O CEREBRAL IN 09/10/2015 MARIELLE WARREN RICHELLE Fuller Ot 782.3 EDEMA 09/10/2015 MARIELLE WARREN RICHELLE Fuller Ot 793.2 NOSP (ABN) FINDINGS ON RADIOLOGICAL OT 09/10/2015 MARIELLE WARREN RICHELLE Fuller Ot 272.4 HYPERLIPIDEMIA NEC/NOS 09/10/2015 MARIELLE WARREN RICHELLE Fuller Ot 401.9 HYPERTENSION NOS 09/10/2015 MARIELLE WARREN RICHELLE Fuller Ot 414.9 CHR ISCHEMIC HRT DIS NOS 09/10/2015 MARIELLE WARREN RICHELLE Fuller Ot 427.89 CARDIAC DYSRHYTHMIAS NEC 09/10/2015 MARIELLE WARREN RICHELLE Fuller Ot 433.10 CAROTID ARTERY OCCLUSION W O CEREBRAL IN 09/10/2015 MARIELLE WARREN RICHELLE Fuller Ot 272.4 HYPERLIPIDEMIA NEC/NOS 09/10/2015 MARIELLE WARREN RICHELLE Fuller Ot 401.9 HYPERTENSION NOS 09/10/2015 MARIELLE WARREN RICHELLE Fuller Ot 414.00 CORON ATHEROSCLER NOS TYPE VESSEL, NATIV 09/10/2015 MARIELLE WARREN RICHELLE Fuller Ot 427.89 CARDIAC DYSRHYTHMIAS NEC 09/10/2015 MARIELLE WARREN RICHELLE Fuller Ot 433.10 CAROTID ARTERY OCCLUSION W O CEREBRAL IN 09/10/2015 VIKTORIYA ALONZO, CRIS Nelson Ot K43.9 VENTRAL HERNIA WITHOUT OBSTRUCTION OR GA 09/10/2015 VIKTORIYA ALONZO, CRIS Nelson Ot Z01.812 ENCOUNTER FOR PREPROCEDURAL LABORATORY E 09/10/2015 VIKTORIYA ALONZO, CRIS Nelson Ot Z11.2 ENCOUNTER FOR SCREENING FOR OTHER [...] Nelson Ot I25.10 ATHSCL HEART DISEASE OF [place] CORONARY 09/24/2015 VIKTORIYA ALONZO, CRIS Nelson Ot [...] CASE Ot I25.10 ATHSCL HEART DISEASE OF [place] CORONARY 02/23/2016 RICHELLE CASE Ot R60.0 LOCALIZED EDEMA 03/14/2016 RICHELLE CASE Ot E78.2 MIXED HYPERLIPIDEMIA 03/14/2016 RICHELLE CASE Ot I10 ESSENTIAL (PRIMARY) HYPERTENSION 03/14/2016 RICHELLE CASE Ot I25.10 ATHSCL HEART DISEASE OF [place] CORONARY 03/14/2016 RICHELLE CASE Ot R60.0 LOCALIZED EDEMA 03/17/2016 RICHELLE CASE Ot E78.2 MIXED HYPERLIPIDEMIA 03/17/2016 RICHELLE CASE Ot I10 ESSENTIAL (PRIMARY) HYPERTENSION 03/17/2016 RICHELLE CASE Ot I25.10 ATHSCL HEART DISEASE OF [place] CORONARY 03/17/2016 RICHELLE CASE Ot R60.0 LOCALIZED EDEMA 03/23/2016 RICHELLE CASE Ot E78.2 MIXED HYPERLIPIDEMIA 03/23/2016 RICHELLE CASE Ot I10 ESSENTIAL (PRIMARY) HYPERTENSION 03/23/2016 RICHELLE CASE Ot I25.10 ATHSCL HEART DISEASE OF [place] CORONARY 03/23/2016 RICHELLE CASE Ot R60.0 LOCALIZED EDEMA 03/29/2016 LISETH PRETTY MD Ot E78.5 HYPERLIPIDEMIA, UNSPECIFIED 03/29/2016 LISETH PRETTY MD, Ot I10 ESSENTIAL (PRIMARY) HYPERTENSION 03/29/2016 LISETH PRETTY MD Ot I25.10 ATHSCL HEART DISEASE OF [place] CORONARY 03/29/2016 LISETH PRETTY MD Ot I25.2 OLD MYOCARDIAL INFARCTION 03/29/2016 LISETH PRETTY MD Ot I25.5 ISCHEMIC CARDIOMYOPATHY 03/29/2016 LISETH PRETTY MD Ot 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 03/29/2016 LISETH PRETTY MD Ot I50.22 CHRONIC SYSTOLIC (CONGESTIVE) HEART FAIL 03/29/2016 LISETH PRETTY MD Ot Z79.02 HALFWAY (CURRENT) USE OF ANTITHROMBOTI 03/29/2016 LISETH PRETTY MD Ot Z79.899 OTHER HALFWAY (CURRENT) DRUG THERAPY 03/29/2016 LISETH PRETTY MD Ot Z95.5 PRESENCE OF CORONARY ANGIOPLASTY IMPLANT 04/11/2016 RICHELLE CASE Ot E78.2 MIXED HYPERLIPIDEMIA 04/11/2016 RICHELLE CASE Ot I10 ESSENTIAL (PRIMARY) HYPERTENSION 04/11/2016 RICHELLE CASE Ot I25.10 ATHSCL HEART DISEASE OF [place] CORONARY 04/11/2016 RICHELLE CASE Ot R60.0 LOCALIZED EDEMA 04/13/2016 RICHELLE CASE Ot E78.2 MIXED HYPERLIPIDEMIA 04/13/2016 RICHELLE CASE Ot I10 ESSENTIAL (PRIMARY) HYPERTENSION 04/13/2016 RICHELLE CASE Ot I25.10 ATHSCL HEART DISEASE OF [place] CORONARY 04/13/2016 RICHELLE CASE Ot R60.0 LOCALIZED EDEMA 05/04/2016 LISETH PRETTY MD, Ot E78.5 HYPERLIPIDEMIA, UNSPECIFIED 05/04/2016 LISETH PRETTY MD, Ot I10 ESSENTIAL (PRIMARY) HYPERTENSION 05/04/2016 LIESTH PRETTY MD, Ot I25.10 ATHSCL HEART DISEASE OF [place] CORONARY 05/04/2016 LISETH PRETTY MD Ot I25.2 OLD MYOCARDIAL INFARCTION 05/04/2016 LISETH PRETTY MD, Ot I25.5 ISCHEMIC CARDIOMYOPATHY 05/04/2016 LISETH PRETTY MD Ot 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 05/04/2016 LISETH PRETTY MD Ot I50.22 CHRONIC SYSTOLIC (CONGESTIVE) HEART FAIL 05/04/2016 LISETH PRETTY MD Ot Z79.02 RADIOLOGY MANAGER (CURRENT) USE OF ANTITHROMBOTI 05/04/2016 LISETH PRETTY MD Ot Z79.899 OTHER HALFWAY (CURRENT) DRUG THERAPY 05/04/2016 LISETH PRETTY MD Ot Z95.5 PRESENCE OF CORONARY ANGIOPLASTY IMPLANT 06/14/2016 SAMANTHA HARP Ot M75.111 INCOMPLETE ROTATR-CUFF TEAR/RUPTR OF R S 07/03/2016 SAMANTHA HARP Ot M75.111 INCOMPLETE ROTATR-CUFF TEAR/RUPTR OF R S 07/06/2016 SAMANTHA HARP Ot M75.111 INCOMPLETE ROTATR-CUFF TEAR/RUPTR OF R S 07/06/2016 NILSA ALONZO, ZARA Eller Ot S43.491A OTHER SPRAIN OF RIGHT SHOULDER JOINT, IN 07/06/2016 ZARA ASH MD, Ot X58.XXXA EXPOSURE TO OTHER SPECIFIED FACTORS, INI 07/06/2016 ZARA ASH MD, Ot Y99.8 OTHER EXTERNAL CAUSE STATUS 07/06/2016 ZARA ASH MD, Ot Z01.818 ENCOUNTER FOR OTHER PREPROCEDURAL EXAMIN 07/06/2016 ZARA ASH MD, Ot Z11.2 ENCOUNTER FOR SCREENING FOR OTHER BACTER 07/12/2016 ZARA ASH MD, Ot M24.211 DISORDER OF LIGAMENT, RIGHT SHOULDER 07/12/2016 ZARA ASH MD, Ot 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, RIGHT SHOULDER 07/17/2016 ZARA ASH MD, Ot M24.211 DISORDER OF LIGAMENT, RIGHT SHOULDER 07/17/2016 ZARA ASH MD, Ot 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, RIGHT SHOULDER 07/19/2016 ZARA ASH MD, Ot M24.211 DISORDER OF LIGAMENT, RIGHT SHOULDER 07/19/2016 ZARA ASH MD, Ot 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, RIGHT SHOULDER 04/16/2017 ZARA ASH MD, Ot L72.9 FOLLICULAR CYST OF THE SKIN AND SUBCUTAN 04/16/2017 ZARA ASH MD, Ot Z01.818 ENCOUNTER FOR OTHER PREPROCEDURAL EXAMIN 04/17/2017 ZARA ASH MD, Ot L72.9 FOLLICULAR CYST OF THE SKIN AND SUBCUTAN 04/17/2017 ZARA ASH MD, Ot Z01.818 ENCOUNTER FOR OTHER PREPROCEDURAL EXAMIN 04/25/2017 ZARA ASH MD, Ot E78.00 PURE HYPERCHOLESTEROLEMIA, UNSPECIFIED 04/25/2017 ZARA ASH MD, Ot I10 ESSENTIAL (PRIMARY) HYPERTENSION 04/25/2017 ZARA ASH MD, Ot I25.10 ATHSCL HEART DISEASE OF [place] CORONARY 04/25/2017 ZARA ASH MD, Ot I25.2 OLD MYOCARDIAL INFARCTION 04/25/2017 ZARA ASH MD, Ot K21.9 GASTRO-ESOPHAGEAL REFLUX DISEASE WITHOUT 04/25/2017 ZARA ASH MD, Ot M67.441 GANGLION, RIGHT HAND 04/25/2017 ZARA ASH MD, Ot Z79.82 HALFWAY (CURRENT) USE OF ASPIRIN 04/25/2017 ZARA ASH MD Ot Z79.899 OTHER RADIOLOGY MANAGER (CURRENT) DRUG THERAPY 04/25/2017 ZARA ASH MD Ot Z87.891 PERSONAL HISTORY OF NICOTINE DEPENDENCE 04/25/2017 ZARA ASH MD Ot Z95.5 PRESENCE OF CORONARY ANGIOPLASTY IMPLANT 04/26/2017 AZRA ASH MD Ot E78.00 PURE HYPERCHOLESTEROLEMIA, UNSPECIFIED 04/26/2017 ZARA ASH MD Ot I10 ESSENTIAL (PRIMARY) HYPERTENSION 04/26/2017 ZARA ASH MD Ot I25.10 ATHSCL HEART DISEASE OF [place] CORONARY 04/26/2017 ZARA ASH MD Ot I25.2 OLD MYOCARDIAL INFARCTION 04/26/2017 ZARA ASH MD Ot K21.9 GASTRO-ESOPHAGEAL REFLUX DISEASE WITHOUT 04/26/2017 ZARA ASH MD Ot M67.441 GANGLION, RIGHT HAND 04/26/2017 ZARA ASH MD Ot Z79.82 RADIOLOGY MANAGER (CURRENT) USE OF ASPIRIN 04/26/2017 ZARA ASH MD Ot Z79.899 OTHER HALFWAY (CURRENT) DRUG THERAPY 04/26/2017 ZARA ASH MD Ot Z87.891 PERSONAL HISTORY OF NICOTINE DEPENDENCE 04/26/2017 ZARA ASH MD Ot Z95.5 PRESENCE OF CORONARY ANGIOPLASTY IMPLANT 05/09/2017 ZARA ASH MD Ot E78.00 PURE HYPERCHOLESTEROLEMIA, UNSPECIFIED 05/09/2017 ZARA ASH MD Ot I10 ESSENTIAL (PRIMARY) HYPERTENSION 05/09/2017 ZARA ASH MD Ot I25.10 ATHSCL HEART DISEASE OF [place] CORONARY 05/09/2017 ZARA ASH MD Ot I25.2 OLD MYOCARDIAL INFARCTION 05/09/2017 ZARA ASH MD Ot K21.9 GASTRO-ESOPHAGEAL REFLUX DISEASE WITHOUT 05/09/2017 ZARA ASH MD Ot M67.441 GANGLION, RIGHT HAND 05/09/2017 ZARA ASH MD Ot Z79.82 HALFWAY (CURRENT) USE OF ASPIRIN 05/09/2017 ZARA ASH MD Ot Z79.899 OTHER HALFWAY (CURRENT) DRUG THERAPY 05/09/2017 ZARA ASH MD Ot Z87.891 PERSONAL HISTORY OF NICOTINE DEPENDENCE 05/09/2017 ZARA ASH MD Ot Z95.5 PRESENCE OF CORONARY ANGIOPLASTY IMPLANT 05/09/2017 ZARA ASH MD Ot E78.00 PURE HYPERCHOLESTEROLEMIA, UNSPECIFIED 05/09/2017 ZARA ASH MD Ot I10 ESSENTIAL (PRIMARY) HYPERTENSION 05/09/2017 ZARA ASH MD, Ot I25.10 ATHSCL HEART DISEASE OF [place] CORONARY 05/09/2017 ZARA ASH MD, Ot I25.2 OLD MYOCARDIAL INFARCTION 05/09/2017 ZARA ASH MD Ot K21.9 GASTRO-ESOPHAGEAL REFLUX DISEASE WITHOUT 05/09/2017 ZARA ASH MD Ot M67.441 GANGLION, RIGHT HAND 05/09/2017 ZARA ASH MD, Ot Z79.82 HALFWAY (CURRENT) USE OF ASPIRIN 05/09/2017 ZARA ASH MD, Ot Z79.899 OTHER RADIOLOGY MANAGER (CURRENT) DRUG THERAPY 05/09/2017 ZARA ASH MD, Ot Z87.891 PERSONAL HISTORY OF NICOTINE DEPENDENCE 05/09/2017 ZARA ASH MD Ot Z95.5 PRESENCE OF CORONARY ANGIOPLASTY IMPLANT 12/11/2017 VIKTORIYA ALONZO, CRIS Nelson Ot 272.4 HYPERLIPIDEMIA NEC/NOS 12/11/2017 VIKTORIYA ALONZO, CRIS Nelson Ot 401.9 HYPERTENSION NOS 12/11/2017 VIKTORIYA ALONZO, CRIS Nelson Ot 562.10 DIVERTICULOSIS COLON (W/O MENT OF HEMORR 12/11/2017 VIKTORIYA ALONZO, CRIS Nelson Ot V76.51 SCREEN MAL NEOP-COLON 12/11/2017 VIKTORIYA ALNOZO, CRIS Nelson Ot V72.84 EXAM PRE-OPERATIVE NOS 12/11/2017 RICHELLE CASE Ot 272.4 HYPERLIPIDEMIA NEC/NOS 12/11/2017 RICHELLE CASE Ot 278.00 OBESITY, NOS 12/11/2017 RICHELLE CASE Ot 401.9 HYPERTENSION NOS 12/11/2017 RICHELLE CASE Ot 414.00 CORON ATHEROSCLER NOS TYPE VESSEL, NATIV 12/11/2017 RICHELLE CASE Ot 424.1 AORTIC VALVE DISORDER 12/11/2017 RICHELLE CASE Ot 429.9 HEART DISEASE NOS 12/11/2017 RICHELLE CASE Ot 433.10 CAROTID ARTERY OCCLUSION W O CEREBRAL IN 12/11/2017 RICHELLE CASE Ot 782.3 EDEMA 12/11/2017 RICHELLE CASE Ot 272.4 HYPERLIPIDEMIA NEC/NOS 12/11/2017 RICHELLE CASE Ot 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 12/11/2017 RICHELLE CASE Ot 397.0 TRICUSPID VALVE DISEASE 12/11/2017 MARIELLE WARREN RICHELLE K Ot 401.9 HYPERTENSION NOS 12/11/2017 RICHELLE CASE Ot 414.00 CORON ATHEROSCLER NOS TYPE VESSEL, NATIV 12/11/2017 RICHELLE CASE Ot 433.10 CAROTID ARTERY OCCLUSION W O CEREBRAL IN 12/11/2017 RICHELLE CASE Ot 782.3 EDEMA 12/11/2017 RICHELLE CASE Ot 793.2 NOSP (ABN) FINDINGS ON RADIOLOGICAL OT 12/11/2017 MARIELLE WARREN RICHELLE K Ot 272.4 HYPERLIPIDEMIA NEC/NOS 12/11/2017 MARIELLE WARREN RICHELLE K Ot 401.9 HYPERTENSION NOS 12/11/2017 RICHELLE CASE Ot 414.9 CHR ISCHEMIC HRT DIS NOS 12/11/2017 RICHELLE CASE Ot 427.89 CARDIAC DYSRHYTHMIAS NEC 12/11/2017 RICHELLE CASE Ot 433.10 CAROTID ARTERY OCCLUSION W O CEREBRAL IN 12/11/2017 RICHELLE CASE Ot 272.4 HYPERLIPIDEMIA NEC/NOS 12/11/2017 RICHELLE CASE Ot 401.9 HYPERTENSION NOS 12/11/2017 RICHELLE CASE Ot 414.00 CORON ATHEROSCLER NOS TYPE VESSEL, NATIV 12/11/2017 RICHELLE CASE Ot 427.89 CARDIAC DYSRHYTHMIAS NEC 12/11/2017 RICHELLE CASE Ot 433.10 CAROTID ARTERY OCCLUSION W O CEREBRAL IN 12/11/2017 RICHELLE CASE Ot E78.2 MIXED HYPERLIPIDEMIA 12/11/2017 RICHELLE CASE Ot I10 ESSENTIAL (PRIMARY) HYPERTENSION 12/11/2017 RICHELLE CASE Ot I25.10 ATHSCL HEART DISEASE OF [place] CORONARY 12/11/2017 RICHELLE CASE Ot R60.0 LOCALIZED EDEMA 12/11/2017 RICHELLE CASE Ot E78.2 MIXED HYPERLIPIDEMIA 12/11/2017 RICHELLE CASE Ot I10 ESSENTIAL (PRIMARY) HYPERTENSION 12/11/2017 RICHELLE CASE Ot I25.10 ATHSCL HEART DISEASE OF [place] CORONARY 12/11/2017 RICHELLE CASE Ot R60.0 LOCALIZED EDEMA 12/11/2017 SAMANTHA HARP Ot M75.111 INCOMPLETE ROTATR-CUFF TEAR/RUPTR OF R S 12/12/2017 AUSTYN MACKAY APRN Ot M17.11 UNILATERAL PRIMARY OSTEOARTHRITIS, RIGHT 12/12/2017 AUSTYN MACKAY APRN Ot S83.241A OTH TEAR OF MEDIAL MENISCUS, CURRENT INJ 03/29/2018 NILSA ALONZO, ZARA Eller Ot M17.11 UNILATERAL PRIMARY OSTEOARTHRITIS, RIGHT 03/29/2018 NILSA ALONZO, ZARA Eller Ot R53.83 OTHER FATIGUE 03/29/2018 NILSA ALONZO, ZARA Eller Ot Z01.811 ENCOUNTER FOR PREPROCEDURAL RESPIRATORY 03/29/2018 ZARA ASH MD, Ot Z01.812 ENCOUNTER FOR PREPROCEDURAL LABORATORY E Procedures Code Description Performed By Performed On 37.22 LEFT HEART CARDIAC CATH 03/29/2013 88.53 LT HEART ANGIOCARDIOGRAM 03/29/2013 88.56 CORONAR ARTERIOGR-2 CATH 03/29/2013 Results Test Result Range Methicillin resistant Staphylococcus aureus (MRSA) screening culture - 08:40 Methicillin resistant Staphylococcus aureus (MRSA) screening culture NEG NRG Methicillin resistant Staphylococcus aureus (MRSA) screening culture - 12:15 Methicillin resistant Staphylococcus aureus (MRSA) screening culture NEG NRG Methicillin resistant Staphylococcus aureus (MRSA) screening culture - 12:09 Methicillin resistant Staphylococcus aureus (MRSA) screening culture NEG NRG Complete blood count (CBC) with automated white blood cell (WBC) differential - 03/28/18 10:05 Blood leukocytes automated count (number/volume) 4.5 10*3/uL 4.3-11.0 Blood erythrocytes automated count (number/volume) 4.64 10*6/uL 4.35-5.85 Venous blood hemoglobin measurement (mass/volume) 14.2 g/dL 13.3-17.7 Blood hematocrit (volume fraction) 43 % 40-54 Automated erythrocyte mean corpuscular volume 93 [foz_us] 80-99 Automated erythrocyte mean corpuscular hemoglobin (mass per erythrocyte) 31 pg 25-34 Automated erythrocyte mean corpuscular hemoglobin concentration measurement ( mass/volume) 33 g/dL 32-36 Automated erythrocyte distribution width ratio 13.9 % 10.0-14.5 Automated blood platelet count (count/volume) 179 10*3/uL 130-400 Automated blood platelet mean volume measurement 10.5 [foz_us] 7.4-10.4 Automated blood neutrophils/100 leukocytes 58 % 42-75 Automated blood lymphocytes/100 leukocytes 25 % 12-44 Blood monocytes/100 leukocytes 13 % 0-12 Automated blood eosinophils/100 leukocytes 4 % 0-10 Automated blood basophils/100 leukocytes 0 % 0-10 Blood neutrophils automated count (number/volume) 2.7 10*3 1.8-7.8 Blood lymphocytes automated count (number/volume) 1.1 10*3 1.0-4.0 Blood monocytes automated count (number/volume) 0.6 10*3 0.0-1.0 Automated eosinophil count 0.2 10*3/uL 0.0-0.3 Automated blood basophil count (count/volume) 0.0 10*3/uL 0.0-0.1 PT panel in platelet poor plasma by coagulation assay - 03/28/18 10:05 Prothrombin time (PT) in platelet poor plasma by coagulation assay 12.6 s 12.2-14.7 INR in platelet poor plasma or blood by coagulation assay 1.0 0.8-1.4 Comprehensive metabolic panel - 03/28/18 10:05 Serum or plasma sodium measurement (moles/volume) 139 mmol/L 135-145 Serum or plasma potassium measurement (moles/volume) 4.5 mmol/L 3.6-5.0 Serum or plasma chloride measurement (moles/volume) 108 mmol/L 98-107 Carbon dioxide 23 mmol/L 21-32 Serum or plasma anion gap determination (moles/volume) 8 mmol/L 5-14 Serum or plasma urea nitrogen measurement (mass/volume) 13 mg/dL 7-18 Serum or plasma creatinine measurement (mass/volume) 1.18 mg/dL 0.60-1.30 Serum or plasma urea nitrogen/creatinine mass ratio 11 NRG Serum or plasma creatinine measurement with calculation of estimated glomerular filtration rate 60 NRG Serum or plasma glucose measurement (mass/volume) 75 mg/dL 70-105 Serum or plasma calcium measurement (mass/volume) 9.1 mg/dL 8.5-10.1 Serum or plasma total bilirubin measurement (mass/volume) 0.6 mg/dL 0.1-1.0 Serum or plasma alkaline phosphatase measurement (enzymatic activity/volume) 70 U/L 40-136 Serum or plasma aspartate aminotransferase measurement (enzymatic activity/ volume) 21 U/L 5-34 Serum or plasma alanine aminotransferase measurement (enzymatic activity/volume ) 21 U/L 0-55 Serum or plasma protein measurement (mass/volume) 6.4 g/dL 6.4-8.2 Serum or plasma albumin measurement (mass/volume) 4.2 g/dL 3.2-4.5 CALCIUM CORRECTED 8.9 mg/dL 8.5-10.1 Erythrocyte sedimentation rate by westergren method - 03/28/18 10:05 Erythrocyte sedimentation rate by westergren method 4 mm 0-30 Blood type T Indirect antibody screen panel - 03/28/18 10:05 ABO+Rh group OP NRG Blood group antibody screen NEGATIVE NRG Methicillin resistant Staphylococcus aureus (MRSA) screening culture - 10:05 Methicillin resistant Staphylococcus aureus (MRSA) screening culture NEG NRG Complete urinalysis with reflex to culture - 03/28/18 10:20 Urine color determination YELLOW NRG Urine clarity determination SLIGHTLY CLOUDY NRG Urine pH measurement by test strip 6.5 5-9 Specific gravity of urine by test strip 1.010 1.016- 1.022 Urine protein assay by test strip, semi-quantitative NEGATIVE NEGATIVE Urine glucose detection by automated test strip NEGATIVE NEGATIVE Erythrocytes detection in urine sediment by light microscopy 2+ NEGATIVE Urine ketones detection by automated test strip NEGATIVE NEGATIVE Urine nitrite detection by test strip NEGATIVE NEGATIVE Urine total bilirubin detection by test strip NEGATIVE NEGATIVE Urine urobilinogen measurement by automated test strip (mass/volume) NORMAL NORMAL Urine leukocyte esterase detection by dipstick NEGATIVE NEGATIVE Automated urine sediment erythrocyte count by microscopy (number/high power field) [HPF] NRG Automated urine sediment leukocyte count by microscopy (number/high power field ) NONE NRG Bacteria detection in urine sediment by light microscopy TRACE NRG Squamous epithelial cells detection in urine sediment by light microscopy 0-2 NRG Crystals detection in urine sediment by light microscopy NONE NRG Casts detection in urine sediment by light microscopy NONE NRG Mucus detection in urine sediment by light microscopy NEGATIVE NRG Complete urinalysis with reflex to culture NO NRG Encounters ACCT No. Visit Date/Time Discharge Status Pt. Type Provider Facility Loc./Unit Complaint [id number] 03/28/2018 09:20:00 03/28/2018 10:30:00 DIS Outpatient ZARA ASH MD [facility] PREOP OSTEOARTHRITIS [id number] 12/11/2017 13:18:00 12/11/2017 23:59:59 CLS Outpatient AUSTYN MACKAY APRN [facility] RAD RIGHT KNEE PAIN [id number] 04/25/2017 08:50:00 04/25/2017 13:06:00 [facility] [id number] 04/16/2017 11:56:00 04/16/2017 12:14:00 DIS Outpatient ZARA ASH MD [facility] PREOP RIGHT LONG FINGER CYST [id number] 07/12/2016 06:55:00 07/12/2016 13:10:00 DIS Outpatient ZARA ASH MD [facility] SDC RIGHT TORN LABRUM [id number] 07/06/2016 11:59:00 07/06/2016 12:44:00 DIS Outpatient ZARA ASH MD [facility] PREOP RIGHT TORN LABRUM [id number] 06/08/2016 15:52:00 06/08/2016 23:59:59 CLS Outpatient SAMANTHA HARP [facility] RAD RTC PARTIAL RIGHT [id number] 03/29/2016 07:48:00 03/29/2016 14:58:00 DIS Outpatient LISETH PRETTY MD [facility] CATH CAD,HTN [id number] 03/22/2016 11:05:00 03/22/2016 23:59:59 CLS Outpatient RICHELLE CASE [facility] CARD CAD,HTN [id number] 02/22/2016 10:08:00 02/22/2016 23:59:59 CLS Outpatient RICHELLE CASE [facility] CARD CAD,HTN [id number] 09/17/2015 20:53:00 09/24/2015 12:40:00 DIS Inpatient CRIS SADLER MD [facility] 4TH PARTIAL SBO VS ILEUS, DEHYDRATION,S/P HERNIA REPAIR [id number] 09/13/2015 11:22:00 09/13/2015 17:35:00 DIS Outpatient CRIS SADLER MD [facility] SDC VENTRAL HERNIA [id number] 09/10/2015 09:59:00 09/10/2015 11:43:00 DIS Outpatient CRIS SADLER MD [facility] PREOP VENTRAL HERNIA [id number] 09/21/2014 07:49:00 09/21/2014 23:59:59 CLS Outpatient RICHELLE CASE [facility] CARD BRADYCARDIA, CAD [id number] 09/17/2014 07:54:00 09/17/2014 23:59:59 CLS Outpatient RICHELLE CASE [facility] CARD BRADYCARDIA, CAD,MINNA [id number] 03/29/2013 16:32:00 03/30/2013 11:15:00 DIS Inpatient LISETH PRETTY MD [facility] CSD CHEST PAIN [id number] 03/26/2013 11:50:00 03/26/2013 23:59:59 CLS Outpatient RICHELLE CASE [facility] RAD CAD,HTN,HLP [id number] 03/25/2013 10:34:00 03/25/2013 23:59:59 CLS Outpatient RICHELLE CASE [facility] CARD CAD,HTN,HLP , [id number] 12/23/2012 09:39:00 12/23/2012 23:59:59 CLS Outpatient CRIS SADLER MD [facility] SDC SCREENING [id number] 12/18/2012 08:19:00 12/18/2012 23:59:59 CLS Outpatient CRIS SADLER MD [facility] PREOP SCREENING [id number] 03/28/2018 09:24:00 Document Registration [id number] 01/25/2011 10:30:00 Document Registration 05/201603/18/2018 15:22:05 03/18/2018 23:59:59 CLS Outpatient Pippa Daniels [id number] 09/21/2014 07:50:06 ACT Document Registration
[2018-04-03] MEDS ORDERED: diphenhydrAMINE 50 MG/ML INJ (BENADRYL) IVP PRN (07:30)
[2018-04-03] MEDS ORDERED: oxyCODONE/APAP 5/325MG (PERCOCET 5) TABLET PO PRN (07:30)
[2018-04-03] MEDS ORDERED: INTRA-ARTICULAR IU ONE ×5 (07:30)
[2018-04-03] MEDS ORDERED: ONDANSETRON 4 MG/2 ML (SDV) Z0FRAN IVP PRN ×2 (07:30→11:15)
[2018-04-03] MEDS ORDERED: CEFUROXIME INJECTION 1,500 MG in NS (IVPB) 50 ML IV ONE (07:30)
[2018-04-03] MEDS ORDERED: morphine PCA 100 MG/100 ML BAG IV PRN (07:30)
[2018-04-03] MEDS ORDERED: ACETAMINOPHEN 325 MG TABLET PO PRN (07:30)
--- NOTE | 2018-04-03 07:34 | Progress Note-Pre Operative ---
Pre-Operative Progress Note H&P Reviewed The H&P was reviewed, patient examined and no changes noted. Date Seen by Provider: Apr 03, 2018 Time Seen by Provider: 07:33 Date H&P Reviewed: Apr 03, 2018 Time H&P Reviewed: 07:33 Pre-Operative Diagnosis: right knee primary osteoarthritis ZARA ASH MD Apr 03, 2018 07:34
--- NOTE | 2018-04-03 07:35 | Progress Note-Post Operative ---
Post-Operative Progess Note Surgeon (s)/Agricultural Equipment Salesperson (s) Surgeon ZARA ASH MD Agricultural Equipment Salesperson: Jakub Quintanilla Pre-Operative Diagnosis right knee primary osteoarthritis Post-Operative Diagnosis right knee primary osteoarthritis Procedure & Operative Findings Date of Procedure 04/03/18 Procedure Performed/Findings right total knee arthroplasty Anesthesia Type GETA Estimated Blood Loss Estimated blood loss (mL): minimal Specimens/Packing Specimens Removed none Packing: none ZARA ASH MD Apr 03, 2018 07:34
[2018-04-03] MEDS ORDERED: OXYC1TAB87 PO (07:36)
[2018-04-03] MEDS ORDERED: ROPIVACAINE 5MG/ML 30ML VIAL ONE (07:36)
--- NOTE | 2018-04-03 07:37 | D/C HH Face to Face Order ---
D/C Face to Face Orders Instructions for Patient Via [facility], Patient Instructions/FollowUp: three weeks Physician to follow Patient: Three weeks Discharge Diet for Home: Regular Diet Patient Data-Allergies,Ht & Wt Patient Allergies: Coded Allergies: No Known Drug Allergies (Unverified , 07/06/16) Height (Feet): 6 Height (Inches): 0.00 Weight (Pounds): 235 Weight (Ounces): 0.0 Home Health Need/Face to Face Date of Face to Face: Apr 03, 2018 Clinical Findings: Instability, Muscle weakness, Pain with ambulation, Unsteady gait I have seen Pt [id number]: Yes Discharged To: Home Diagnosis/Conditions: right total knee arthroplasty Patient is Homebound due to: Veda fall risk due to instabilty, Muscle weakness , Pain w/ambulation Homebound Status Due to the above stated illness, injury or surgical procedure (medical condition or diagnosis) and associated clinical findings, the patient is homebound because of his/her inability to leave home except with aid of a supportive device and/or person AND leaving the home requires a considerable and taxing effort or is medically contraindicated. Pt req the following assistanc: [facility] Nursing Orders Home Health Services Order: Physical Therapy-Evaluate & Treat Therapy Orders Therapy Orders: Physical Therapy, PT to assess for OT Therapy Specific Orders: Eval assistive deivces (DC right knee sheryl and apply steri strips 04/17/18), Teach enviro modifications/safety, Gait training, Increase strength/endurance, Provider maintenance therapy, Restore ROM Certify Stmt I certify that this patient is under my care and that I, a nurse practitioner or a physician; a investment sales assistant working with me, had a face to face encounter that - meets the physician face to face encounter requirements with this patient as dated. ZARA ASH MD Apr 03, 2018 07:37
[2018-04-03] MEDS ORDERED: MIDAZOLAM 2 MG/2 ML (VERSED) VIAL ONE (07:38)
[2018-04-03] MEDS ORDERED: LIDOCAINE PF 2% 5 ML (XYLOCAINE) VIAL ONE (07:40)
[2018-04-03] MEDS ORDERED: CATHETER FLUSH 10 ML SYR IV PRN (07:45)
[2018-04-03] MEDS ORDERED: LACTATED RINGERS 1,000 ML IV PRN (07:46)
[2018-04-03] MEDS ORDERED: FAMOTIDINE 20MG/2ML IV (PEPCID) ONE (07:47)
[2018-04-03] MEDS: LACTATED RINGERS 1,000 ML IV PRN ×2 (07:55→09:50)
[2018-04-03] MEDS ORDERED: FAMOTIDINE 20MG/2ML IV (PEPCID) IV ONE (08:00)
[2018-04-03] MEDS ORDERED: TRANEXAMIC ACID 100 MG/ML 10 ML INJECTION IV ONE (08:32)
[2018-04-03] MEDS ORDERED: ONDANSETRON 4 MG/2 ML (SDV) Z0FRAN ONE (08:32)
[2018-04-03] MEDS ORDERED: SEVOFLURANE (ULTANE) 15 ML INHAL SOLN ONE (08:32)
[2018-04-03] MEDS ORDERED: proPOfol 200 MG/20 ML (DIPRIVAN) VIAL IV ONE (08:32)
[2018-04-03] MEDS ORDERED: fentaNYL INJECTION 250 MCG/5 ML AMP ONE (08:32)
[2018-04-03] MEDS ORDERED: DEXAMETHASONE 10 MG/ML (DECADRON) 1 ML VIAL ONE (10:20)
[2018-04-03] MEDS ORDERED: morphine INJ 10 MG/ML 1ML (SYR OR VIAL) ONE (10:59)
[2018-04-03] MEDS ORDERED: HYDROmorphone 2 MG/ML VIAL (DILAUDID) IV ONE (11:15)
[2018-04-03] MEDS ORDERED: morphine INJ 10 MG/ML 1ML (SYR OR VIAL) IVP ONE (11:15)
[2018-04-03 12:00] VITALS: BP 142/73
--- NOTE | 2018-04-03 12:31 | Progress Note-Standard ---
Standard Progress Note Progress Notes/Assess & Plan Date Seen by a Provider: Apr 03, 2018 Time Seen by a Provider: 12:29 Progress/Assessment & Plan post op check denies paresthesias radiographs--HW well positioned without fracture RLE--2 plus DP pulse with brisk cap refill and intact DF and PF of toes and ankle. sensation intact throughout s/p RTKA mobilize as able ZARA ASH MD Apr 03, 2018 12:31
[2018-04-03] MEDS: NS IV 1000 ML 1,000 ML IV SCH (13:28)
[2018-04-03] MEDS: SENNA W/DOCUSATE (SENOKOT S) TABLET PO SCH ×2 (13:28→21:15)
--- NOTE | 2018-04-03 14:01 | Diagnostic Imaging Report ---
INDICATION: Right knee replacement. Time of exam 11:26 AM FINDINGS: Two views of the right knee demonstrate postoperative changes of total knee arthroplasty. Prosthetic elements are in good position. No fracture or loosening is seen. Overlying skin sheryl are noted. IMPRESSION: Satisfactory postop right knee. Dictated by: Dictated on workstation # [id number]
--- NOTE | 2018-04-03 14:12 | OPERATIVE REPORT ---
DATE OF SERVICE: 04/03/2018 PREOPERATIVE DIAGNOSIS: Right knee primary osteoarthritis. POSTOPERATIVE DIAGNOSIS: Right knee primary osteoarthritis. PROCEDURE: Right total knee arthroplasty. SURGEON: Bucky Ash MD. AGRONOMIST: RADHA Elizabeth, who assisted throughout the procedure and closed the incision. ANESTHESIA: General endotracheal plus regional nerve block per my request for postoperative pain management by Dr. Mcpherson. TOURNIQUET TIME: Approximately 70 minutes at 300 mmHg. ESTIMATED BLOOD LOSS: Minimal. DRAINS: None. COMPLICATIONS: None. POSTOPERATIVE PLAN: Routine total knee arthroplasty protocol. The patient was transported to the recovery room awake and in stable condition. MATERIALS: MicroPort cemented size 7 femur, cemented size 7 tibia with a 10 mm insert and cemented size 35 patellar button. STATEMENT OF NECESSITY: The patient is a 77-year-old gentleman with longstanding progressive right knee pain, catching, locking and swelling. Radiographs revealed severe tricompartmental osteoarthritis. He had undergone treatment with arthroscopy, injections and anti-inflammatories without relief. Due to functional impairment and failure to improve with conservative measures, the patient elected to proceed with surgical intervention. DESCRIPTION OF PROCEDURE: After the risks and benefits of the procedure were discussed and questions were answered, an informed consent was signed and placed on the chart. The operative site was confirmed in the preoperative holding area initialed by the surgeon. The patient was then transported to the operating room and after adequate levels of regional and general endotracheal anesthetic were obtained, a timeout was called confirming the operative site. The right lower extremity was then prepped and draped in the usual sterile fashion with the leg elevated and the knee flexed. Tourniquet was inflated to 300 mmHg. Standard anterior approach was utilized. Hemostasis was obtained with the cautery. A medial parapatellar arthrotomy was performed leaving 1 cm cuff on the patella for later reattachment. A portion of the fat pad was resected. A subperiosteal release was performed of the proximal medial tibia being careful to stay on the bony surface. The ACL was resected. The intramedullary guide was passed into the femur and the distal cutting block was placed and distal cut was made and the femur was sized to a size 7. The 7 cutting block was placed parallel to the epicondylar axis and the cuts were made from posterior to anterior. The subperiosteal release was then carefully performed on the posterior distal femur, being careful to stay on the bony surface. An intramedullary guide was then passed into the tibia. The drop silvino transected the intermalleolar axis and the cut was made. The baseplate was placed size 7. The drop silvino transected the intermalleolar axis. This was then prepared with the drill and keel punch. The femoral trial was placed and the trochlear cut was made. A 10 mm insert was placed. The patella was then prepared by resecting 10 mm off the undersurface using the freehand technique. The peg guide was placed and the peg holes were drilled. The trials were inserted. A full extension was easily obtained under 20 degrees of flexion with gravity was easily obtained. The patella tracked well. There was no anterior/posterior or medial/lateral laxity in flexion or extension. The trials were removed. The joint was irrigated with pulse lavage. Periarticular block was placed in the posterior capsule, medial and lateral retinaculum and extensor mechanisms as well as subcutaneous tissue. The bone ends were irrigated and dried. The tibial baseplate was cemented into position. Excessive cement was removed. The superior surface was irrigated and dried and the polyethylene insert was placed. The distal femur was irrigated and dried and the prosthesis was cemented into position. Excessive cement was removed. The knee was brought out to full extension until the cement had cured. The undersurface of the patella was irrigated and dried and the patellar button was cemented into position removing excessive cement. Once the cement had cured, the knee was taken through the range of motion, full extension was easily obtained at 120 degrees of flexion with gravity was easily obtained. There was no anterior/posterior or medial/lateral laxity in flexion or extension. The patella tracked well. The joint was further irrigated with pulse lavage. Arthrotomy was closed with #2 Tevdek in [id number] interrupted fashion. The knee was flexed. No undue tension was noted at the repair site. The subcutaneous tissues were further irrigated using a total of 6 liters throughout the procedure. A 0 Vicryl was used for the deep subcutaneous tissue, 2-0 Vicryl for the superficial subcutaneous tissue and sheryl used on the skin. A soft dressing was applied. The tourniquet was deflated and the patient was transferred to the recovery room awake and in stable condition. Job ID: [id number] DocumentID: [id number] Dictated Date: 04/03/2018 11:12:12 Return Clerk Date: 04/03/2018 14:12:40 Dictated By: BUCKY ASH MD
--- NOTE | 2018-04-03 14:44 | Physical Therapy Evaluation ---
PT Evaluation-General Medical Diagnosis Admission Date Apr 03, 2018 at 07:20 Medical Diagnosis: right TKA Onset Date: Apr 03, 2018 Therapy Diagnosis Therapy Diagnosis: impaired mobility, strength, endurance, ROM Height/Weight Height (Feet): 6 Height (Inches): 0.00 Weight (Pounds): 235 Weight (Ounces): 0.0 Precautions Precautions/Isolations: Fall Prevention, Standard Precautions Weight Bear Status Right Lower Extremity: Right Weight Bearing/Tolerated Referral Physician: Jakub Quintanilla Reason for Referral: Evaluation/Treatment Medical History Pertinent Medical History: CAD, SC Additional Medical History gastric reflux, hypercholesterolemia, surg (left heart catheterization with stent, left TKA, right shoulder scope, herniorrhaphy) Reviewed History: Yes Social History Home: Single Level Current Living Status: Spouse Entry Into Home: Level Entry PT Steps Inside Home: 3 Prior/Core FIM Prior Level of Function Functional [place] Measure 0=Not Assessed/NA 4=Minimal Assistance 1=Total Assistance 5=Supervision or Setup 2=Maximal Assistance 6=Modified [place] 3=Moderate Assistance 7=Complete IndependenceIRFPAI Quality Coding Scale 6 Independent with activity with or without an assistive device 5 Patient requires set up or clean up by helper. Patient completes activity by themselves 4 Supervision or touching assist (CGA). [place] provide cues , steadying assist 3 The helper provides less than half the effort to complete the activity 2 The helper provides more than half the effort to complete the activity 1 Dependent. The helper does all the effort to complete an activity 7 Patient refused to complete or attempt activity 9 The patient did not perform the activity before the current illness or injury 88 Not attempted due to Medical conditions or safety concerns Bed Mobility: 7 Transfers (B,C,W/C) (FIM): 7 Gait: 7 PT Evaluation-Current Subjective Patient in bed pre tx, agrees to PT, no complaints of pain at rest. Pt/Family Goals to be independent at home Objective Patient Orientation: Person, Place, Situation Attachments: SCD's, Polar Pack, IV ROM/Strength ROM Lower Extremities right knee flexion 90 degrees, extension +3 degrees Strength Lower Extremities NT Neuromuscular (Tone, Coordination, Reflexes) NT Sensory Vision: Functional Hearing: Impaired Sensation Right Lower Extremit: Impaired Sensation Left Lower Extremity: Intact Sensation Lower Extremities Patient has some numbness on medial knee and calf. Transfers Functional [place] Measure 0=Not Assessed/NA 4=Minimal Assistance 1=Total Assistance 5=Supervision or Setup 2=Maximal Assistance 6=Modified [place] 3=Moderate Assistance 7=Complete [place] Transfers (B, C, W/C) (FIM): 4 Scootin Rollin Supine to/from Sit: 5 Sit to/from Stand: 5 bed t/f WC(FIM only if WC use): 4 CGA with transfers, cues for safety and positioning, no dizziness with supine to sit or when standing Gait Mode of Locomotion: Walk Anticipated Mode of Locomotion: Walk Gait (FIM): 2 Distance: 80' Gait Level of Assist: 4 Gait Persons Needed: 1 Gait Assistive Device: FWW Comments/Gait Description Patient ambulated 80' with a rolling walker with CGA, good step through and heel strike. Slightly flexed right knee. Balance Sitting Static: Normal Sitting Dynamic: Normal Standing Static: Good Standing Dynamic: Good Treatment Right TKA protocol x10 (AP, QS, HS, SAQ, SLR). Assessment/Needs Patient has impaired mobility, strength, endurance, ROM post right TKA. Patient in bed post tx with nurse call, phone, tray, CPM donned and set to patient and set to -2/70, polar care on, SCD's on. Rehab Potential: Fair PT Short Term Goals Short Term Goals Time Frame: Apr 10, 2018 Transfers (B,C,W/C) (FIM): 5 Gait (FIM): 5 Gait Distance Comment: 150' Gait Level of Assist: 5 Gait Assistive Device: FWW PT Plan Problem List Problem List: Activity Tolerance, Functional Strength, Safety, Balance, Gait, Transfer, Bed Mobility, ROM Treatment/Plan Treatment Plan: Continue Plan of Care Treatment Plan: Bed Mobility, Education, Functional Activity Andie, Functional Strength, Gait, Safety, Therapeutic Exercise, Transfers Treatment Duration: Apr 10, 2018 Frequency: 11 times per week Estimated Hrs Per Day: .25 hour per day (15-30') Patient and/or Family Agrees t: Yes Safety Risks/Education Patient Education: Gait Training, Transfer Techniques, Reviewed Use of Ice, Correct Positioning, Safety Issues Teaching Recipient: Patient Teaching Methods: Demonstration, Discussion Response to Teaching: Reinforcement Needed Discharge Recommendations Plan Patient will perform bed mobility and transfer training, balance and endurance training, functional strengthening, stair training, gait training, and education , to improve functional mobility and independence at home. Therapy D/C Recommendations: Home w/ Family Support Time/GCodes Time In: 1410 Time Out: 1435 Total Billed Treatment Time: 25 Total Billed Treatment 1 visit TODD 15' GT 10' SKYE GERMAN PT Apr 03, 2018 14:44
[2018-04-03] MEDS ORDERED: FLU QUADRIvalent (5+ YOA) 2018-2019 (AFLURIA) 0.5 ML IM ONE (15:00)
[2018-04-03 15:46] VITALS: BP 135/76
[2018-04-03] MEDS: CEFUROXIME INJECTION 750 MG in NS (IVPB) 50 ML IV SCH ×2 (16:35→22:54)
[2018-04-03 19:00] VITALS: BP 128/73
--- NOTE | 2018-04-03 19:28 | Consultation ---
History of Present Illness History of Present Illness Patient Consulted On(cristian/time) 04/03/18 19:24 Date Seen by Provider: Apr 03, 2018 Time Seen by Provider: 19:24 History of Present Illness This is a 77 year old male with a known history of coronary artery disease with numerous stents who underwent right total knee arthroplasty by Dr. Ash this morning. He has had a good day and been up ambulating in halls, but did have one episode of nausea and vomiting this evening. He feels fine now and denies any nausea or pain. Allergies and Home Medications Allergies Coded Allergies: No Known Drug Allergies (Unverified , 07/06/16) Home Medications Aspirin 81 Mg Tab.chew, 81 MG PO DAILY, (Reported) Atorvastatin Calcium 40 Mg Tablet, 40 MG PO DAILY, (Reported) Clopidogrel Bisulfate 75 Mg Tablet, 75 MG PO DAILY, (Reported) Lisinopril 5 Mg Tablet, 5 MG PO DAILY, (Reported) Nitroglycerin 0.4 Mg Tab.subl, 0.4 MG SL UD PRN for CHEST PAIN, (Reported) Oxycodone HCl/Acetaminophen 1 Each Tablet, 1 EACH PO Q4H PRN for PAIN-MODERATE Prescribed by: ZARA ASH on 04/03/18 0736 Pantoprazole Sodium 40 Mg Tablet.dr, 40 MG PO DAILY, (Reported) Patient Home Medication List Home Medication List Reviewed: Yes Past Srhgwwf-Tdvtlk-Tzyxua Hx Patient Social History Alcohol Use: Occasionally Uses Recreational Drug Use: No Smoking Status: Former Smoker Type Used: Cigarettes Former Smoker, Quit: Sep 16, 2000 Recent Foreign Travel: No Contact w/Someone Who Travel: No Recent Infectious Disease Expo: No Recent Hopitalizations: No Immunizations Up To Date Tetanus Booster (TDap): Less than 5yrs Date of Pneumonia Vaccine: Mar 29, 2017 Date of Influenza Vaccine: Feb 25, 2018 Seasonal Allergies Seasonal Allergies: No Past Medical History Surgeries: Yes (HERNIA, LEFT TKR, LEFT HEEL, BILAT CATARACTS, RT SHOULDER SCOPE ) Cardiac, Coronary Stent, Joint Replacement, Orthopedic, Vasectomy Respiratory: No Cardiac: Yes (STENTS x11) Coronary Artery Disease, High Cholesterol, Hypertension Neurological: No Reproductive Disorders: No Sexually Transmitted Disease: No HIV/AIDS: No Genitourinary: No Gastrointestinal: Yes Gastroesophageal Reflux, Chronic Constipation, Ulcer Musculoskeletal: Yes Arthritis, Chronic Back Pain Endocrine: No HEENT: Yes (cataract removed) Cataract Loss of Vision: Bilateral Hearing Impairment: Hard of Hearing, Bilateral Hearing Aide Cancer: No Psychosocial: No Integumentary: No Blood Disorders: No Adverse Reaction/Blood Tranf: No (N/A) Family Medical History Cancer 09 SISTER, Onset:60 years & older (BREAST CA) 03 FATHER, Onset:60 years & older (LUNG CA) 03 MOTHER, Onset:60 years & older (BONE CA) Review of Systems-General Constitutional: No no symptoms reported, No see HPI, No chills, No diaphoresis , No dizziness, No fever, No malaise, No weakness, No weight gain, No weight loss, No other EENTM: No see HPI, No no symptoms reported, No ear discharge, No hearing loss, No ear pain, No blurred vision, No double vision, No eye pain, No tearing, No vision loss, No dental problems, No hoarseness, No mouth pain, No mouth swelling , No epistaxis, No nose congestion, No nose pain, No throat pain, No throat swelling, No other Respiratory: No no symptoms reported, No see HPI, No cough, No dyspnea on exertion, No hemoptysis, No orthopnea, No phlegm, No short of breath, No stridor , No wheezing, No other Cardiovascular: No no symptoms reported, No see HPI, No chest pain, No edema, No Hx of Intervention, No palpitations, No syncope, No vascular heart diseas, No other Gastrointestinal: No RUQ, No LUQ, No RLQ, No LLQ, No no symptoms reported, No see HPI, No abdominal pain, No constipation, No diarrhea, No dysphagia, No hematemesis, No heartburn, No jaundice, No loss of appetite, No melena, No nausea, No vomiting, No other Genitourinary: decreased output (has not urinated yet) Musculoskeletal: joint pain (right knee pain currently well controlled) Skin: No no symptoms reported, No see HPI, No change in color, No change in hair/nails, No dryness, No hx of skin cancer, No lesions, No lumps, No pruritus , No rash, No other Psychiatric/Neurological: Denies No Symptoms Reported, Denies See HPI, Denies Anxiety, Denies Depressed, Denies Emotional Problems, Denies Headache, Denies Numbness, Denies Paresthesia, Denies Pre-Existing Deficit, Denies Seizure, Denies Tingling, Denies Tremors, Denies Weakness, Denies Other Physical Exam-General Problems Physical Exam Vital Signs Vital Signs - First Documented 04/03/18 12:00 Temp 98.7 Pulse 70 Resp 16 B/P (MAP) 142/73 (96) Pulse Ox 96 O2 Delivery Room Air Capillary Refill : Less Than 3 Seconds General Appearance: WD/WN, no apparent distress HEENT: normal ENT inspection Neck: supple Respiratory: lungs clear Cardiovascular: regular rate, rhythm, systolic murmur, gallop/S4 Gastrointestinal: normal bowel sounds, non tender, soft Rectal: deferred Back: no CVA tenderness Extremities: non-tender, no pedal edema, no calf tenderness Neurologic/Psychiatric: alert, oriented x 3 Skin: warm/dry (right knee dressing in place) Assessment/Plan Assessment/Plan Admission Diagnosis/Plan 1. Right Total Knee Arthroplasty--pain currently well controlled, encouraged IS 2. Hypertension--resume home BP meds in AM 3. GERD--resume protonix 4. History of CAD--stable Clinical Quality Measures DVT/VTE Risk/Contraindication: Risk Factor Score Per Nursin RFS Level Per Nursing on Admit: 4+=Very High FELIX GARCÍA DO Apr 03, 2018 19:28
[2018-04-04] MEDS: NS IV 1000 ML 1,000 ML IV SCH ×3 (00:40→23:57)
[2018-04-04 00:45] VITALS: BP 123/72
[2018-04-04 04:05] VITALS: BP 118/64
[2018-04-04] MEDS: PANTOPRAZOLE 40 MG (PROTONIX) TAB PO SCH (06:21)
[2018-04-04] MEDS: MULTIVIT W/MINERALS TAB (THERAGRAN M) PO SCH (06:22)
[2018-04-04 07:59] VITALS: BP 135/63
--- NOTE | 2018-04-04 08:04 | Progress Note-Standard ---
Standard Progress Note Progress Notes/Assess & Plan Date Seen by a Provider: Apr 04, 2018 Time Seen by a Provider: 08:03 Progress/Assessment & Plan post op check denies paresthesias radiographs--HW well positioned without fracture RLE--2 plus DP pulse with brisk cap refill and intact DF and PF of toes and ankle. sensation intact throughout s/p RTKA mobilize as able Final Diagnosis No complaints Vital Signs Date Time Temp Pulse Resp B/P (MAP) Pulse Ox O2 Delivery O2 Flow Rate FiO2 04/04/18 07:59 97.0 77 16 135/63 (87) 96 Room Air 04/04/18 07:05 96 Room Air 04/04/18 06:00 18 04/04/18 04:05 97.4 80 18 118/64 (82) 97 Room Air 04/04/18 01:26 94 Room Air 04/04/18 00:45 97.8 83 18 123/72 (89) 94 Room Air 04/03/18 21:18 96 Room Air 04/03/18 19:00 96.9 84 18 128/73 (91) 96 Room Air 04/03/18 18:52 97 Room Air 04/03/18 15:46 96.4 76 18 135/76 (95) 95 Room Air 04/03/18 14:28 96 Room Air 04/03/18 14:00 96 Room Air 04/03/18 12:00 98.7 70 16 142/73 (96) 96 Room Air 04/03/18 12:00 96 Room Air I & O 04/04/18 07:00 Intake Total 3630 ml Output Total 300 ml Balance 3330 ml Laboratory Tests Test 04/04/18 04:35 Range/Units Hemoglobin 13.0 L 13.3-17.7 G/DL Hematocrit 39 L 40-54 % RLE--dressing intact. NVI distally. No calf tenderness s/p RTKA doing well PT/OT ZAAR ASH MD Apr 04, 2018 08:04
[2018-04-04] MEDS ORDERED: ENOXAPARIN 30 MG/0.3 ML (LOVENOX) SYR SC SCH (08:30)
[2018-04-04] MEDS ORDERED: ASPIRIN E.C. 81 MG (ECOTRIN) TAB PO SCH (09:00)
[2018-04-04] MEDS: SENNA W/DOCUSATE (SENOKOT S) TABLET PO SCH ×2 (09:15→20:49)
--- NOTE | 2018-04-04 09:20 | Physical Therapy Daily Note ---
PT Daily Note-Current Subjective Pt awake in bed visiting with when PT arrived. Pt agreed work with PT. Pain Numeric Pain Scale: 3 Location: Right Location Body Site: Knee Pain Description: Acute Mental Status Patient Orientation: Normal For Age Attachments: IV Transfers Functional [place] Measure 0=Not Assessed/NA 4=Minimal Assistance 1=Total Assistance 5=Supervision or Setup 2=Maximal Assistance 6=Modified [place] 3=Moderate Assistance 7=Complete IndependenceIRFPAI Quality Coding Scale 6 Independent with activity with or without an assistive device 5 Patient requires set up or clean up by helper. Patient completes activity by themselves 4 Supervision or touching assist (CGA). [place] provide cues , steadying assist 3 The helper provides less than half the effort to complete the activity 2 The helper provides more than half the effort to complete the activity 1 Dependent. The helper does all the effort to complete an activity 7 Patient refused to complete or attempt activity 9 The patient did not perform the activity before the current illness or injury 88 Not attempted due to Medical conditions or safety concerns Transfers (B, C, W/C) (FIM): 5 Scootin Rollin Supine to/from Sit: 5 Sit to/from Stand: 5 Weight Bearing Right Lower Extremity: Right Weight Bearing/Tolerated Gait Training Gait (FIM): 5 Distance (FIM): 3=150 ft Distance: 200' Gait Level of Assist: 5 Gait Persons Needed: 1 Gait Assistive Device: FWW Exercises Supine Ex: Quad Set, Heel Slides, Straight leg raise Seated Therapy Exercises: Long arc quads, Hamstring Curls Treatments CPM 0-80 degrees Assessment Current Status: Excellent Progress Pt was able to ambulate 200' with FWW requiring SBA. Patient has a heel to toe pattern during ambulation and does not show any signs of fatigue. Pt performed exercises in bed and sitting edge of bed and was informed to continue exercises independently without PT. Patient will continue to benefit from PT to improve overall strength for daily function. PT Short Term Goals Short Term Goals Time Frame: Apr 10, 2018 Transfers (B,C,W/C) (FIM): 5 Gait (FIM): 5 Gait Distance Comment: 150' Gait Level of Assist: 5 Gait Assistive Device: FWW PT Plan Problem List Problem List: Activity Tolerance, Functional Strength, Safety, Balance, Gait Treatment/Plan Treatment Plan: Continue Plan of Care Treatment Plan: Bed Mobility, Education, Functional Activity Andie, Functional Strength, Gait, Safety, Therapeutic Exercise, Transfers Treatment Duration: Apr 10, 2018 Frequency: 11 times per week Estimated Hrs Per Day: .25 hour per day (15-30') Patient and/or Family Agrees t: Yes Time/GCodes Time In: 851 Time Out: 914 Total Billed Treatment Time: 23 Total Billed Treatment 1 visit GT- 10' EX - 13' MIGDALIA MCKOY PT Apr 04, 2018 09:20
--- NOTE | 2018-04-04 11:10 | Anesthesia-General Post-Op ---
General Patient Condition Mental Status/LOC: Same as Preop Cardiovascular: Satisfactory Nausea/Vomiting: Absent Respiratory: Satisfactory Pain: Controlled Complications: Absent Post Op Complications Complications None Follow Up Care/Instructions Patient Instructions None needed. Anesthesia/Patient Condition Patient Condition Patient is doing well, no complaints, stable vital signs, no apparent adverse anesthesia problems. No complications reported per nursing. CAROL URRUTIA CRNA Apr 04, 2018 11:10
--- NOTE | 2018-04-04 11:11 | Anesthesia-Regional Post-Op ---
Regional Patient Condition Mental Status: Alert, Oriented x3 Circulation: Same as Pre-Op Headache: Absent Sensation: Full Recovery Motor Block: Absent Post Op Complications Complications None Follow Up Care/Instructions Patient Instructions None needed. Anesthesia/Patient Condition Patient is doing well, no complaints, stable vital signs, no apparent adverse anesthesia problems. No complications reported per nursing. CAROL URRUTIA CRNA Apr 04, 2018 11:11
[2018-04-04] MEDS: HYDROcodone/APAP 7.5 MG/325 MG (LORTAB, LORCET PLUS) TABLET PO PRN ×2 (11:36→20:49)
[2018-04-04 12:00] VITALS: BP 124/58
--- NOTE | 2018-04-04 12:29 | Progress Note (SOAP) ---
Subjective Date Seen by a Provider: Apr 04, 2018 Time Seen by a Provider: 12:26 Subjective/Events-last exam Fwup right TKR, Hypertension, GERD, history of CAD. Pain well controlled. No complaints. States he will not stop his plavix and Dr. Tovar does not want him taking both plavix and lovenox. Objective Exam Vital Signs Date Time Temp Pulse Resp B/P (MAP) Pulse Ox O2 Delivery O2 Flow Rate FiO2 04/04/18 07:59 97.0 77 16 135/63 (87) 96 Room Air 04/04/18 07:05 96 Room Air 04/04/18 06:00 18 04/04/18 04:05 97.4 80 18 118/64 (82) 97 Room Air 04/04/18 01:26 94 Room Air 04/04/18 00:45 97.8 83 18 123/72 (89) 94 Room Air 04/03/18 21:18 96 Room Air 04/03/18 19:00 96.9 84 18 128/73 (91) 96 Room Air 04/03/18 18:52 97 Room Air 04/03/18 15:46 96.4 76 18 135/76 (95) 95 Room Air 04/03/18 14:28 96 Room Air 04/03/18 14:00 96 Room Air I & O 04/04/18 07:00 Intake Total 3630 ml Output Total 300 ml Balance 3330 ml Capillary Refill : Less Than 3 Seconds General Appearance: No Apparent Distress Neck: Supple Respiratory: Lungs Clear Cardiovascular: Regular Rate, Rhythm Gastrointestinal: normal bowel sounds, non tender, soft Extremity: Non Tender, No Calf Tenderness, No Pedal Edema Neurologic/Psychiatric: Alert, Oriented x3 Skin: Warm/Dry (right knee dressing in place) Results Lab Laboratory Tests 04/04/18 04:35: Hemoglobin 13.0L, Hematocrit 39L Assessment/Plan Assessment/Plan Assess & Plan/Chief Complaint 1. Right Total Knee Arthroplasty--pain currently well controlled, encouraged IS , hold on lovenox and resume plavix with aspirin per patient's request 2. Hypertension--home lisinopril dose restarted 3. GERD--back on protonix 4. History of CAD--stable, resume plavix, asa Clinical Quality Measures DVT/VTE Risk/Contraindication: Risk Factor Score Per Nursin RFS Level Per Nursing on Admit: 4+=Very High FELIX GARCÍA DO Apr 04, 2018 12:29
[2018-04-04] MEDS ORDERED: NITROGLYCERIN 0.4 MG SL TABS BTL 25'S SL PRN (12:30)
[2018-04-04] MEDS ORDERED: CLOPIDOGREL 75 MG (PLAVIX) TABLET PO NR (12:30)
--- NOTE | 2018-04-04 13:52 | Physical Therapy Daily Note ---
PT Daily Note-Current Subjective Pt awake in bed watching tv with when PT arrived. Pt agreed to get up and walk with PT for the afternoon. Pain Numeric Pain Scale: 3 Location: Right Location Body Site: Knee Pain Description: Acute Mental Status Patient Orientation: Normal For Age Attachments: IV Transfers Functional [place] Measure 0=Not Assessed/NA 4=Minimal Assistance 1=Total Assistance 5=Supervision or Setup 2=Maximal Assistance 6=Modified [place] 3=Moderate Assistance 7=Complete IndependenceIRFPAI Quality Coding Scale 6 Independent with activity with or without an assistive device 5 Patient requires set up or clean up by helper. Patient completes activity by themselves 4 Supervision or touching assist (CGA). [place] provide cues , steadying assist 3 The helper provides less than half the effort to complete the activity 2 The helper provides more than half the effort to complete the activity 1 Dependent. The helper does all the effort to complete an activity 7 Patient refused to complete or attempt activity 9 The patient did not perform the activity before the current illness or injury 88 Not attempted due to Medical conditions or safety concerns Transfers (B, C, W/C) (FIM): 5 Scootin Rollin Supine to/from Sit: 5 Sit to/from Stand: 5 Weight Bearing Right Lower Extremity: Right Weight Bearing/Tolerated Gait Training Gait (FIM): 5 Distance (FIM): 3=150 ft Distance: 300' Gait Level of Assist: 5 Gait Persons Needed: 1 Gait Assistive Device: FWW Exercises Supine Ex: Quad Set, Heel Slides, Straight leg raise Supine Reps: 15 Seated Therapy Exercises: Long arc quads, Hamstring Curls Seated Reps: 15 Assessment Current Status: Excellent Progress Patient was able to ambulate for 300' with a FWW requiring SBA. Patient reported a 3/10 pain rating and did not show any signs of fatigue during ambulation. Patient performed exercises in bed and stated that his quad was starting to get sore. Patient returned to bed with leg in CPM 0-80 degrees when PT left. PT Short Term Goals Short Term Goals Time Frame: Apr 10, 2018 Transfers (B,C,W/C) (FIM): 5 Gait (FIM): 5 Gait Distance Comment: 150' Gait Level of Assist: 5 Gait Assistive Device: FWW PT Plan Problem List Problem List: Activity Tolerance, Functional Strength, Safety, Balance, Gait, Transfer Treatment/Plan Treatment Plan: Continue Plan of Care Treatment Plan: Bed Mobility, Education, Functional Activity Andie, Functional Strength, Gait, Safety, Therapeutic Exercise, Transfers Treatment Duration: Apr 10, 2018 Frequency: 11 times per week Estimated Hrs Per Day: .25 hour per day (15-30') Patient and/or Family Agrees t: Yes Time/GCodes Time In: 1252 Time Out: 1317 Total Billed Treatment Time: 25 Total Billed Treatment 1 visit GT- 10' EX - 15' MIGDALIA MCKOY PT Apr 04, 2018 13:52
--- NOTE | 2018-04-04 14:41 | Occ Therapy Progress Note ---
Therapy Progress Note OT order received. Chart reviewed. PT screened pt. and let this OT know that pt. is already completing ADLs with no issue. Pt. has showered today independently after set up, and is completing all ADL transfers. Due to this assessment, no OT warranted at this time. Will be happy to assess pt. personally if any issues or concerns arise. Thank you for this referral. 1440 AMEYA CAMP OT Apr 04, 2018 14:41
[2018-04-04 15:50] VITALS: BP 126/66
[2018-04-04 19:35] VITALS: BP 141/67
[2018-04-05 00:39] VITALS: BP 129/63
[2018-04-05] MEDS: HYDROcodone/APAP 7.5 MG/325 MG (LORTAB, LORCET PLUS) TABLET PO PRN ×2 (03:37→07:47)
[2018-04-05 04:07] VITALS: BP 148/69
[2018-04-05 04:13] LABS: HEMOGLOBIN 12.6 G/DL (13.3-17.7)
[2018-04-05] MEDS: PANTOPRAZOLE 40 MG (PROTONIX) TAB PO SCH (06:26)
[2018-04-05] MEDS: MULTIVIT W/MINERALS TAB (THERAGRAN M) PO SCH (06:26)
--- NOTE | 2018-04-05 07:09 | Progress Note-Standard ---
Standard Progress Note Progress Notes/Assess & Plan Date Seen by a Provider: Apr 05, 2018 Time Seen by a Provider: 07:08 Progress/Assessment & Plan post op check denies paresthesias radiographs--HW well positioned without fracture RLE--2 plus DP pulse with brisk cap refill and intact DF and PF of toes and ankle. sensation intact throughout s/p RTKA mobilize as able Final Diagnosis no complaints Vital Signs Date Time Temp Pulse Resp B/P (MAP) Pulse Ox O2 Delivery O2 Flow Rate FiO2 04/05/18 06:31 18 04/05/18 04:07 99.3 72 18 148/69 (95) 94 Room Air 04/05/18 02:35 97 Room Air 04/05/18 00:39 98.6 69 18 129/63 (85) 95 Room Air 04/04/18 21:03 97 Room Air 04/04/18 20:00 Room Air 04/04/18 19:35 97.8 67 16 141/67 (91) 98 Room Air 04/04/18 18:39 96 Room Air 04/04/18 18:00 18 04/04/18 15:50 98.1 60 20 126/66 (86) 97 Room Air 04/04/18 15:09 96 Room Air 04/04/18 12:00 97.5 66 18 124/58 (80) 98 Room Air 04/04/18 07:59 97.0 77 16 135/63 (87) 96 Room Air I & O 04/05/18 07:00 Intake Total 4150 ml Balance 4150 ml Laboratory Tests Test 04/05/18 03:30 Range/Units Hemoglobin 12.6 L 13.3-17.7 G/DL Hematocrit 39 L 40-54 % RLE--incision clean and dry. No calf tenderness. Neg Jewel's s/p RTKA doing well DC later today if doing well ZARA ASH MD Apr 05, 2018 07:09
[2018-04-05 07:48] VITALS: BP 180/84
--- NOTE | 2018-04-05 07:50 | DISCHARGE SUMMARY ---
DATE OF SERVICE: DIAGNOSES: 1. Right knee primary osteoarthritis. 2. Coronary artery disease. 3. Gastric reflux. 4. Hypercholesterolemia. PROCEDURE: Right total knee arthroplasty. SUMMARY: The patient is a 77-year-old gentleman, who underwent a right total knee arthroplasty on the day of admission. Postoperatively, he did very well. At the time of discharge, his wound was clean and dry. He had no calf tenderness. Negative Homans sign. He was tolerating his diet well and tolerating pain with oral pain medication. CONDITION AT DISCHARGE: Good. DISCHARGE DIET: Regular. FOLLOWUP: Followup is in three weeks. Home physical therapy has been arranged. DISCHARGE MEDICATIONS: Home medications, aspirin and hydrocodone. Job ID: [id number] DocumentID: [id number] Dictated Date: 04/05/2018 07:07:32 Automation Tender Date: 04/05/2018 07:49:41 Dictated By: ZARA ASH MD
[2018-04-05] MEDS: SENNA W/DOCUSATE (SENOKOT S) TABLET PO SCH (08:13)
--- NOTE | 2018-04-05 08:14 | Physical Therapy Daily Note ---
PT Daily Note-Current Subjective Pt awake in bed in when PT arrived. Pt reported they were having more pain this morning but wanted to continue with PT. Pain Numeric Pain Scale: 6 Location: Right Location Body Site: Knee Pain Description: Acute Mental Status Patient Orientation: Normal For Age Attachments: Polar Pack, IV Transfers Functional [place] Measure 0=Not Assessed/NA 4=Minimal Assistance 1=Total Assistance 5=Supervision or Setup 2=Maximal Assistance 6=Modified [place] 3=Moderate Assistance 7=Complete IndependenceIRFPAI Quality Coding Scale 6 Independent with activity with or without an assistive device 5 Patient requires set up or clean up by helper. Patient completes activity by themselves 4 Supervision or touching assist (CGA). [place] provide cues , steadying assist 3 The helper provides less than half the effort to complete the activity 2 The helper provides more than half the effort to complete the activity 1 Dependent. The helper does all the effort to complete an activity 7 Patient refused to complete or attempt activity 9 The patient did not perform the activity before the current illness or injury 88 Not attempted due to Medical conditions or safety concerns Transfers (B, C, W/C) (FIM): 6 Scootin Rollin Supine to/from Sit: 6 Sit to/from Stand: 6 Weight Bearing Right Lower Extremity: Right Weight Bearing/Tolerated Left Lower Extremity: Left Full Weight Bearing Gait Training Gait (FIM): 6 Distance (FIM): 3=150 ft Distance: >200 Gait Level of Assist: 6 Gait Persons Needed: 1 Gait Assistive Device: FWW Exercises Seated Therapy Exercises: Ankle pumps, Long arc quads, Hamstring Curls Seated Reps: 15 Assessment Current Status: Good Progress Pt was able to ambulate for 250' with a FWW requiring SBA. Patient reported he had more pain today with the nerve block going away. Pt is being seen as modified I and has been told he can get up on his own once his IV is removed. PT Short Term Goals Short Term Goals Time Frame: Apr 10, 2018 Transfers (B,C,W/C) (FIM): 5 Gait (FIM): 5 Gait Distance Comment: 150' Gait Level of Assist: 5 Gait Assistive Device: FWW PT Plan Problem List Problem List: Activity Tolerance, Functional Strength, Safety, Balance, Gait, Bed Mobility Treatment/Plan Treatment Plan: Continue Plan of Care Treatment Plan: Bed Mobility, Education, Functional Activity Andie, Functional Strength, Gait, Safety, Therapeutic Exercise, Transfers Treatment Duration: Apr 10, 2018 Frequency: 11 times per week Estimated Hrs Per Day: .25 hour per day (15-30') Patient and/or Family Agrees t: Yes Time/GCodes Time In: 710 Time Out: 735 Total Billed Treatment Time: 25 Total Billed Treatment 1 visit GT - 15' EX - 10' MIGDALIA MCKOY PT Apr 05, 2018 08:14
[2018-04-05] MEDS ORDERED: ASPIRIN 81 MG CHEW (CHILDREN'S ASA) PO SCH (09:00)
[2018-04-05] MEDS ORDERED: ATORVASTATIN 40 MG (LIPITOR) TABLET PO SCH (09:00)
[2018-04-05] MEDS ORDERED: CLOPIDOGREL 75 MG (PLAVIX) TABLET PO SCH (09:00)
[2018-04-05] MEDS ORDERED: lisINopril 5 MG (PRINIVIL) TABLET PO SCH (09:00)
== END 2018-04-05 10:00 | disposition home health service (06) | DRG 470 ==
LOC: 4TH 07:20 → SURG 07:21 → 4TH 12:00
PROVIDERS: ADMIT Orthopaedic Surgery; ATTEND Orthopaedic Surgery
PROC: 0SRC0J9 Replacement of Right Knee Joint with Synthetic Substitute, Cemented, Open Approach (ICD-10-PCS; principal; 2018-04-03 09:25)
DX: M17.11 Unilateral primary osteoarthritis, right knee (principal); I25.119 Atherosclerotic heart disease of native coronary artery with unspecified angina pectoris; I25.2 Old myocardial infarction; I10 Essential (primary) hypertension; I44.60 Unspecified fascicular block; E78.00 Pure hypercholesterolemia, unspecified; K21.9 Gastro-esophageal reflux disease without esophagitis; K59.09 Other constipation; M54.9 Dorsalgia, unspecified; R11.2 Nausea with vomiting, unspecified; H91.93 Unspecified hearing loss, bilateral; Z87.891 Personal history of nicotine dependence; Z95.5 Presence of coronary angioplasty implant and graft; Z96.652 Presence of left artificial knee joint; Z79.02 Long term (current) use of antithrombotics/antiplatelets; Z79.82 Long term (current) use of aspirin; Z97.4 Presence of external hearing-aid; Z87.11 Personal history of peptic ulcer disease
CPT/HCPCS: 36415; 73560; 85014; 85018; 86850; 86900; 86901; 94664; 94760

== ENCOUNTER → 2018-07-11 | Outpatient (CLI) | payer MEDICARE, OTHER | LOC: CARD 09:51 | PROVIDERS: ATTEND Physician Assistant | DX: I25.10 Atherosclerotic heart disease of native coronary artery without angina pectoris (principal); I10 Essential (primary) hypertension; E78.5 Hyperlipidemia, unspecified; I35.1 Nonrheumatic aortic (valve) insufficiency | CPT/HCPCS: 93306 ==

== ENCOUNTER → 2018-07-15 | Outpatient (CLI) | payer MEDICARE, OTHER ==
[~2018-07-15] MED LIST changes: -ASPI-875 PO; -ASPI-999 PO; -ATOR40TA70 PO; +CATHETER FLUSH 10 ML SYR IV PRN; -CLOP75TA69 PO; -FISH OIL PO; -HYDR-34 PO; -LISI-556 PO; -LISI10TA PO; -METO25TA PO; -METO25TA2 PO; -NITR0.3T6 SL; -NITR0.4T39 SL; -NITR0.6T5 SL; -NITR12SP6 SL; -OMEG-109 PO; -OMEG1CAP51 PO; -OMEP20CA12 PO; -ONDN4T PO; -OXYC-471 PO; -OXYC1TAB87 PO; -PANT40TA3 PO; -PRAV40TA PO; -PRAV40TA2 PO; +REGADENOSON 0.4 MG/5 ML SYR (LEXISCAN) IV ONE
[2018-07-15 09:22] VITALS: BP 136/75
--- NOTE | 2018-07-16 08:20 | STRESS TEST ---
DATE OF SERVICE: 07/15/2018 LEXISCAN MYOVIEW STRESS TEST REPORT REFERRING PHYSICIAN: Dr. Daniels. INDICATION: Aortic regurgitation. FINDINGS: Baseline heart rate is 54, baseline blood pressure 136/75. Baseline EKG is sinus rhythm with no ischemic changes. SUMMARY: The patient was injected with 10.71 mCi of technetium-99 Myoview and the resting images were obtained. Then, the patient received 0.4 mg of Lexiscan followed by 30.3 mCi of technetium-99 Myoview. Throughout the test, there were no EKG changes. The resting and stress images were reviewed and compared in the short axis, horizontal long axis and vertical long axis views. Review of the images showed extracardiac attenuation affecting the quality of the images. There is decreased uptake involving the whole inferior wall and inferolateral wall with mild reversibility. SSS is 11, SDS 5 and TID value 1.05. On the gated images, the left ventricle appeared to be in normal size with normal contractility. Calculated ejection fraction is 53%. CONCLUSION: 1. The patient tolerated Lexiscan well. 2. Extracardiac attenuation affecting the quality of the images with decreased uptake involving the whole inferior wall and inferolateral wall with mild reversibility. 3. Normal left ventricular size with normal contractility. Calculated ejection fraction is 53%. Job ID: [id number] DocumentID: [id number] Dictated Date: 07/16/2018 07:49:24 Structures Mechanic Date: 07/16/2018 08:19:50 Dictated By: LISETH PRETTY MD
== END ==
LOC: CARD 07:24
PROVIDERS: ATTEND Physician Assistant
DX: I35.1 Nonrheumatic aortic (valve) insufficiency (principal); I25.10 Atherosclerotic heart disease of native coronary artery without angina pectoris; I10 Essential (primary) hypertension; E78.5 Hyperlipidemia, unspecified
CPT/HCPCS: 78452; 93017

== ENCOUNTER 2018-07-24 10:29 | Day surgery (SDC) | payer MEDICARE, OTHER ==
[2018-07-24] VITALS (11 sets, daily range): BP systolic 129–158; BP diastolic 76–104
[~2018-07-24] VITALS: Ht 182.9 cm; Wt 106.6 kg
[~2018-07-24 10:29] MED LIST changes: +ASPI-875 PO; +ASPI-999 PO; +ATOR40TA70 PO; -CATHETER FLUSH 10 ML SYR IV PRN; +CLOP75TA69 PO; +FISH OIL PO; +HYDR-34 PO; +LISI-556 PO; +LISI10TA PO; +METO25TA PO; +METO25TA2 PO; +NITR0.3T6 SL; +NITR0.4T39 SL; +NITR0.6T5 SL; +NITR12SP6 SL; +OMEG-109 PO; +OMEG1CAP51 PO; +OMEP20CA12 PO; +ONDN4T PO; +OXYC-471 PO; +OXYC1TAB87 PO; +PANT40TA3 PO; +PRAV40TA PO; +PRAV40TA2 PO; -REGADENOSON 0.4 MG/5 ML SYR (LEXISCAN) IV ONE
[2018-07-24] MEDS ORDERED: LIDOCAINE 1% INJ 20 ML 20 ML VIAL ONE (10:37)
[2018-07-24] MEDS ORDERED: NS IV 1000 ML 3,000 ML ONE (10:37)
[2018-07-24] MEDS ORDERED: HEParin 1000 UNIT/ML (10ML VIAL) FOR BOLUS ONE (10:37)
[2018-07-24] MEDS ORDERED: NS IV 1000 ML 1,000 ML IV SCH ×2 (10:45→13:21)
[2018-07-24 11:12] LABS: HEMOGLOBIN 14.9 G/DL (13.3-17.7); RED CELL DISTRIBUTION WIDTH 14.4 % (10.0-14.5); WHITE BLOOD COUNT 4.3 10^3/uL (4.3-11.0)
--- NOTE | 2018-07-24 11:15 | Diagnostic Imaging Report ---
INDICATION: Coronary artery disease and hypertension. TECHNIQUE: A portable upright AP view of the chest was obtained. COMPARISON: 03/28/2018. FINDINGS: There has been a mild increase in the pulmonary venous congestion. There is also a mild increase in the perihilar densities. No pneumothorax is identified. IMPRESSION: Developing congestive heart failure with pulmonary venous congestion and bilateral perihilar edema. Dictated by: Dictated on workstation # [id number]
[2018-07-24 11:21] LABS: BILIRUBIN,URINE NEGATIVE (NEGATIVE); CLARITY,URINE CLEAR; COLOR,URINE YELLOW; GLUCOSE, URINE (UA) NEGATIVE (NEGATIVE); KETONES,URINE NEGATIVE (NEGATIVE); LEUKOCYTE ESTERASE ,URINE NEGATIVE (NEGATIVE); NITRITE,URINE NEGATIVE (NEGATIVE); PH,URINE 7 (5-9); PROTEIN,URINE 1+ (NEGATIVE); UROBILINOGEN,URINE NORMAL (NORMAL)
[2018-07-24 11:23] LABS: PROTHROMBIN TIME PATIENT 12.9 SEC (12.2-14.7)
[2018-07-24 11:32] LABS: ALBUMIN 4.5 GM/DL (3.2-4.5); BILIRUBIN,TOTAL 0.7 MG/DL (0.1-1.0); CALCIUM 9.5 MG/DL (8.5-10.1); CREATININE SERUM 1.35 MG/DL (0.60-1.30); POTASSIUM 4.2 MMOL/L (3.6-5.0); TOTAL PROTEIN 6.7 GM/DL (6.4-8.2)
[2018-07-24 11:39] LABS: BACTERIA,URINE NEGATIVE /HPF; SQUAMOUS EPITHELIAL CELL,UR RARE /HPF
[2018-07-24] MEDS ORDERED: MIDAZOLAM 5 MG/5 ML (VERSED) VIAL ONE (12:46)
[2018-07-24] MEDS ORDERED: fentaNYL INJECTION 100 MCG/2 ML AMP ONE (12:47)
--- NOTE | 2018-07-24 13:10 | Cardiac Procedure Note-CS/ASA ---
Pre-Procedure Note Pre-Op Procedure Note H&P Reviewed The H&P was reviewed, patient examined and no changes noted. Date H&P Reviewed: Jul 24, 2018 Time H&P Reviewed: 13:10 Conscious Sedation Pre-Proced Time 13:10 ASA Score 3 For ASA 3 and 4: Consider anesthesia and medical clearance. Also, for patients with a history of failed moderate sedation consider anesthesia. Airway Lungs Heart ASA score ASA 1: a normal healthy patient ASA 2: a patient with a mild systemic disease (mid diabetes, controlled hypertension, obesity x ASA 3: a patient with a severe systemic disease that limits activity (angina , COPD, prior Myocardial infarction) ASA 4: a patient with an incapacitating disease that is a constant threat to life (CHF, renal failure) ASA 5: a moribund patient not expected to survive 24 hrs. (ruptured aneurysm) ASA 6: a declared brain- patient whose organs are being harvested. For emergent operations, add the letter E after the classification Mallampati Classification Grade 3 Sedation Plan Analgesia, Amnesia, Plan communicated to team members, Discussed options with patient/fam, Discussed risks with patient/fam The patient is an appropriate candidate to undergo the planned procedure, sedation, and anesthesia. The patient immediately re-assessed prior to indication. LISETH PRETTY MD Jul 24, 2018 13:10
--- NOTE | 2018-07-24 13:23 | Discharge Inst-Post CATH ---
Discharge Inst-CATH/EP Post Cardiac Cath/EP D/C Inst Follow Up/Plan Appointment with Dr French's office in 2-4 weeks CARDIAC CATH DISCHARGE INSTRUCTIONS *Hold Metformin for 48 hours post heart cath. ACTIVITY * Go Home directly and rest. * Limit activity of the leg (or wrist if it was used) for 7 days including aerobics, swimming, jogging, bicycling, etc. * Restrict stair-climbing for 7 days if possible, if not, climb up with your non -cath leg, then bring together on the same step. * Avoid lifting, pushing, pulling or excessive movement of the affected extremity for 7 days. * Customary sexual activity may be resumed after 2 days-use caution not to use a position that strains or causes pain to the affected extremity. * No driving for 24 hours. * NO SMOKING. * Avoid straining for bowel movements for 7 days. * Gentle walking on level ground is allowed. * Returning to work will depend on the type of procedure and the results. Your doctor will discuss this with you. CALL YOUR DOCTOR FOR ANY OF THE FOLLOWING: *If bleeding from the puncture site occurs- Apply gentle pressure to site with clean cloth and call your doctor or EMS. * If a knot or lump forms under the skin, increases in size, or causes pain. * If bruising appears to be worsening or moving further down your leg instead of disappearing. * Temperature above 101 F. CARE OF YOUR GROIN INCISION; * Bruising or purple discoloration of the skin near the puncture site is common. * You may shower only, no bathtub bathing for 5 days. Be careful to avoid slipping as your leg may feel stiff. * If a closure device was used on your femoral artery, please see the attached guide regarding care of the device and your leg. * Leave the dressing on, until removed by office staff. CARE OF YOUR WRIST INCISION; * Bruising or purple discoloration of the skin near the puncture site is common. * You may shower. * DO NOT submerge wrist. * Leave dressing on, until removed by office staff.. LISETH FRENCH MD Jul 24, 2018 13:23
--- NOTE | 2018-07-24 13:27 | Cardiac Cath Report ---
Cardiac Cath Report Physician (s)/Stock Crane Operator (s) Physician LISETH PRETTY MD Pre-Procedure Diagnosis Pre-Procedure Diagnosis: coronary artery disease Post-Procedure Note Procedure Start Date: Jul 24, 2018 Name of Procedure: left heart catheterization Findings/Procedure Note PROCEDURE NOTE: 77 years old gentleman with extensive coronary artery disease multiple stent, had an abnormal stress test, scheduled for cardiac catheterization possible PTCA. After explaining the procedure to the patient, all pros and cons were explained , all questions were answered. The patient signed the consent and then he was placed on the cardiac catheterization laboratory. Groin was prepped SL fashion local anesthesia was used. Sheath placed in the right femoral artery. Areli right and left catheter were used to access the coronary system. Pigtail was used to access the left ventricular cavity. Left ventriculogram was not done to limit the amount of contrast used At the end of the procedure the sheath was removed. Closure device was used FINDINGS: Hemodynamics LV 107/18, end-diastolic pressure of 18 Aorta 125/64 mean of 88 ANATOMY: Left Main Is free of obstructive disease Left Anterior Descending has mild disease distally, nonobstructive disease, slow flow in the LAD Left Circumflex is moderate in size with mild disease, the ramus intermedius has a proximal stent that is patent with good flow distally Right Coronory Artery is dominant artery with multiple stents extending from the proximal to distal portion, patent stent with small vessel disease distally and slow flow in the right coronary artery nonobstructive disease LV Gram was not done, pressure was measured CONCLUSION: 1. Multiple stents in the right coronary artery were placed in the past, they are all patent with slow flow in the right coronary artery due to small vessel disease distally 2. Patent stent in the ramus intermedius with mild disease distally 3. Small to moderate size LAD with slow flow due to small vessel disease nonobstructive disease 4. Mildly elevated left ventricular end-diastolic pressure DISCUSSION AND RECOMMENDATION: continue with medical therapy no intervention is needed Anesthesia Type: Conscious Sedation Estimated blood loss (mL): 15 ml Contrast Amount: 19 ml Total Radiation Dose: 502 mGy Post-Procedure Diagnosis Post-operative diagnosis: Coronary artery disease Hypertension Hyperlipidemia Chest pain LISETH PRETTY MD Jul 24, 2018 13:27
[2018-07-24] MEDS ORDERED: PATIENT MAY USE OWN MEDS, ALL PO SCH (13:30)
== END 2018-07-24 18:10 | disposition home or self-care (01) ==
LOC: CATH 10:29 → SDC 13:46 → CATH 18:10
PROVIDERS: ATTEND Internal Medicine Cardiovascular Disease
DX: I25.10 Atherosclerotic heart disease of native coronary artery without angina pectoris (principal); I10 Essential (primary) hypertension; E78.5 Hyperlipidemia, unspecified; R07.9 Chest pain, unspecified; I08.3 Combined rheumatic disorders of mitral, aortic and tricuspid valves; I65.29 Occlusion and stenosis of unspecified carotid artery; Z79.899 Other long term (current) drug therapy; Z87.891 Personal history of nicotine dependence; Z95.5 Presence of coronary angioplasty implant and graft
CPT/HCPCS: 36415; 71045; 80053; 80061; 81000; 85027; 85610; 85730; 87081; 93458

== ENCOUNTER → 2018-11-15 | Outpatient (CLI) | payer MEDICARE, OTHER ==
--- NOTE | 2018-11-15 10:56 | Diagnostic Imaging Report ---
PROCEDURE: MRI lumbar spine. TECHNIQUE: Multiplanar, multisequence MRI of the lumbar spine was performed without contrast. INDICATION: Low back pain and right knee pain. Patient has had prior lumbar spine surgery. COMPARISON: No prior studies are available for comparison. FINDINGS: Right convexity lumbar scoliotic curvature is noted. There is normal lordotic curvature. There is minimal retrolisthesis of L2 on L3. The vertebral body heights are maintained. No acute compression fracture is detected. No geographic marrow lesion is seen. There are significant degenerative changes at the L2-3 level with disc space narrowing and desiccation as well as reactive Modic changes in the adjacent endplates. The conus is unremarkable at the T12-L1 level. T12-L1: Central canal and neural foramina are widely patent. L1-2: There are endplate osteophytes producing some indentation upon the ventral thecal sac but central canal remains patent. There is ligamentous thickening and facet changes present as well. No significant neural foraminal stenosis is seen. L2-3: Broad-based disc/osteophyte complex flattens the ventral thecal sac. There is narrowing of the left lateral recess. There is significant left neural foraminal stenosis. Mild right neural foraminal narrowing is seen. Mild central canal narrowing is seen. L3-4: Broad-based disc/osteophyte complex flattens the ventral thecal sac and produces mild central canal narrowing. There are facet changes present. There is moderate bilateral lateral recess stenosis as well as mild to moderate bilateral neural foraminal stenosis. L4-5: Broad-based disc/osteophyte complex as well as ligamentous thickening and facet changes result in moderate trefoil stenosis to the canal. There is significant bilateral lateral recess stenosis. Severe right and [id number] left neural foraminal stenosis is noted. L5-S1: Bulky hypertrophic facet changes are noted. Central canal is patent. There is mild bilateral neural foraminal narrowing. Paraspinous tissues demonstrate a cyst in the upper pole of the left kidney 4.2 cm in size. IMPRESSION: Severe lumbar spondylosis and scoliosis with multilevel central canal, lateral recess and neural foraminal stenosis described level by level bowel. No acute compression fracture is detected. Dictated by: Dictated on workstation # [id number]
== END ==
LOC: RAD 09:22
PROVIDERS: ATTEND Orthopaedic Surgery
DX: M47.26 Other spondylosis with radiculopathy, lumbar region (principal); M51.36 Other intervertebral disc degeneration, lumbar region; M48.07 Spinal stenosis, lumbosacral region; M41.86 Other forms of scoliosis, lumbar region; N28.1 Cyst of kidney, acquired; Z98.890 Other specified postprocedural states
CPT/HCPCS: 72148

== ENCOUNTER 2018-11-26 10:25 | Outpatient (CLI) | payer MEDICARE, OTHER ==
[~2018-11-26] VITALS: Ht 182.9 cm; Wt 106.1 kg
[2018-11-26 10:56] VITALS: BP 145/72
== END 2018-11-26 10:50 | disposition home or self-care (01) ==
LOC: PREOP 10:25
PROVIDERS: ATTEND Orthopaedic Surgery
DX: Z01.818 Encounter for other preprocedural examination (principal)
CPT/HCPCS: 87081

== ENCOUNTER 2018-12-04 08:00 | Day surgery (SDC) | payer MEDICARE, OTHER ==
--- NOTE | 2018-11-25 08:41 | HISTORY AND PHYSICAL ---
DATE OF SERVICE: ADMISSION HISTORY AND PHYSICAL This will be for outpatient right knee arthroscopy on 12/04/2018. HISTORY OF PRESENT ILLNESS: The patient is a 78-year-old gentleman who previously underwent right total knee arthroplasty. Overall, he is improved; however, he has continued to have pain on the medial aspect of his knee. He reports popping in this area. He underwent an MRI, which reveals severe stenosis of his lumbar spine. The patient understands that arthroscopy may not be of significant benefit, but due to progressive symptoms and failure to improve. The patient has elected to proceed with surgical intervention. REVIEW OF SYSTEMS: No chest pain, no shortness of breath. No dysuria. PAST MEDICAL HISTORY: Myocardial infarction, reflux, hypercholesterolemia. PAST SURGICAL HISTORY: Coronary stent placement, left total knee arthroplasty, right total knee arthroplasty herniorrhaphy, right shoulder arthroscopy. FAMILY HISTORY: Significant for heart disease. PRIMARY CARE PROVIDER: Dr. Daniels. MEDICATIONS: Aspirin, lisinopril, Nitrostat, Plavix, pantoprazole, atorvastatin. ALLERGIES: No known drug allergies. SOCIAL HISTORY: The patient is a former smoker. He does not drink alcohol. PHYSICAL EXAMINATION: GENERAL: The patient is a well-developed, well-nourished, in no acute distress. HEENT: Normocephalic, atraumatic. Pupils are equal, round and reactive to light. Oropharynx is clear. NECK: Supple. No lymphadenopathy. LUNGS: Clear to auscultation bilaterally. HEART: Regular rate and rhythm. ABDOMEN: Soft, nontender, nondistended. EXTREMITIES: The right knee demonstrates range of motion of 0/0/125. There is no varus valgus laxity. Trace anterior drawer, negative posterior drawer. He is tender over the anterior medial femoral condyle. There is a click noted with range of motion in the soft tissues medial to the quadriceps tendon. 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 PLAN: Left knee arthroscopy with lysis of adhesions. The risks, benefits, options, ramifications and recovery were discussed at length with the patient. He understands and wishes to proceed. Job ID: [id number] DocumentID: [id number] Dictated Date: 11/25/2018 08:26:00 Crm Functional Analyst Date: 11/25/2018 08:40:59 Dictated By: ZARA ASH MD
[~2018-12-04] VITALS: Ht 182.9 cm; Wt 106.1 kg
[2018-12-04] VITALS (10 sets, daily range): BP systolic 112–142; BP diastolic 67–80
[2018-12-04] MEDS ORDERED: LACTATED RINGERS 1,000 ML IV PRN (08:06)
--- OUTSIDE RECORDS SUMMARY | 2018-12-04 08:11 | XMS REPORT | Continuity of Care Document ---
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 03/30/2013 LISETH PRETTY MD Ot 996.72 OTH COMPLICATIONS DUE TO OTH CARD DEVICE 03/30/2013 LISETH PRETTY MD Ot V15.82 HISTORY OF TOBACCO USE 03/30/2013 LISETH PRETTY MD, Ot V17.3 FAM HX-ISCHEM HEART DIS 03/30/2013 [...] CASE Ot 397.0 TRICUSPID VALVE DISEASE 09/10/2015 RICHELLE CASE Ot 401.9 HYPERTENSION NOS 09/10/2015 MARIELLE WARREN RICHELLE K Ot 414.00 CORON ATHEROSCLER NOS TYPE VESSEL, NATIV 09/10/2015 RICHELLE CASE Ot 433.10 CAROTID ARTERY OCCLUSION W O CEREBRAL IN 09/10/2015 RICHELLE CASE Ot 782.3 EDEMA 09/10/2015 RICHELLE CASE Ot 793.2 NOSP (ABN) FINDINGS ON RADIOLOGICAL OT 09/10/2015 RICHELLE CASE Ot 272.4 HYPERLIPIDEMIA NEC/NOS 09/10/2015 RICHELLE CASE Ot 401.9 HYPERTENSION NOS 09/10/2015 RICHELLE CASE Ot 414.9 CHR ISCHEMIC HRT DIS NOS 09/10/2015 MARIELLE WARREN RICHELLE K Ot 427.89 CARDIAC DYSRHYTHMIAS NEC 09/10/2015 MARIELLE WARREN RICHELLE K Ot 433.10 CAROTID ARTERY OCCLUSION W O CEREBRAL IN 09/10/2015 RICHELLE CASE Ot 272.4 HYPERLIPIDEMIA NEC/NOS 09/10/2015 RICHELLE CASE Ot 401.9 HYPERTENSION NOS 09/10/2015 RICHELLE CASE Ot 414.00 CORON ATHEROSCLER NOS TYPE VESSEL, NATIV 09/10/2015 RICHELLE CASE Ot 427.89 CARDIAC DYSRHYTHMIAS NEC 09/10/2015 RICHELLE CASE Ot 433.10 CAROTID ARTERY [...] Z01.812 ENCOUNTER FOR PREPROCEDURAL LABORATORY E 09/13/2015 SADLER MD, CRIS M Ot Z11.2 ENCOUNTER FOR SCREENING FOR OTHER [...] CRIS Nelson Ot E78.0 PURE HYPERCHOLESTEROLEMIA 09/24/2015 VIKTROIYA ALONZO, CRIS Nelson Ot E86.0 DEHYDRATION 09/24/2015 CRIS SADLER MD Ot I10 ESSENTIAL (PRIMARY) HYPERTENSION 09/24/2015 VIKTORIYA ALONZO, CRIS Nelson Ot I25.10 ATHSCL HEART DISEASE OF [place] CORONARY 09/24/2015 VIKTORIYA ALONZO, CRIS Nelson Ot K21.9 GASTRO-ESOPHAGEAL REFLUX DISEASE WITHOUT 09/24/2015 VIKTORIYA ALONZO, CRIS Nelson Ot K56.0 PARALYTIC ILEUS 09/24/2015 VIKTORIYA ALONZO, CRIS Nelson Ot K91.3 POSTPROCEDURAL INTESTINAL OBSTRUCTION 09/24/2015 CRIS SADLER MD Ot K91.89 OTH POSTPROCEDURAL COMPLICATIONS AND DIS [...] OCCLUSION W O CEREBRAL IN 02/23/2016 RICHELLE CSAE Ot E78.2 MIXED HYPERLIPIDEMIA 02/23/2016 RICHELLE CASE Ot I10 ESSENTIAL (PRIMARY) HYPERTENSION 02/23/2016 RICHELLE CASE Ot I25.10 ATHSCL HEART DISEASE OF [place] CORONARY 02/23/2016 RICHELLE CASE Ot R60.0 LOCALIZED EDEMA 03/14/2016 RICHELLE CASE Ot E78.2 MIXED HYPERLIPIDEMIA 03/14/2016 RICHELLE CASE Ot I10 ESSENTIAL (PRIMARY) HYPERTENSION 03/14/2016 RICHELLE CASE Ot I25.10 ATHSCL HEART DISEASE OF [place] CORONARY 03/14/2016 RICHELLE CASE Ot R60.0 LOCALIZED EDEMA 03/17/2016 RICHELLE CASE Ot E78.2 MIXED HYPERLIPIDEMIA 03/17/2016 RICHELLE CASE Ot I10 ESSENTIAL (PRIMARY) HYPERTENSION 03/17/2016 RICHELLE CASE Ot I25.10 ATHSCL HEART DISEASE OF [place] CORONARY 03/17/2016 RICHELLE CASE Ot R60.0 LOCALIZED EDEMA 03/23/2016 RICHELLE CASE Ot E78.2 MIXED HYPERLIPIDEMIA 03/23/2016 RICHELLE CASE Ot I10 ESSENTIAL (PRIMARY) HYPERTENSION 03/23/2016 RICHELLE CASE Ot I25.10 ATHSCL HEART DISEASE OF [place] CORONARY 03/23/2016 RICHELLE CASE Ot R60.0 LOCALIZED EDEMA 03/29/2016 LISETH PRETTY MD Ot E78.5 HYPERLIPIDEMIA, UNSPECIFIED 03/29/2016 LISETH PRETTY MD Ot I10 ESSENTIAL (PRIMARY) HYPERTENSION 03/29/2016 LISETH PRETTY MD Ot I25.10 ATHSCL HEART DISEASE OF [place] CORONARY 03/29/2016 LISETH PRETTY MD Ot I25.2 OLD MYOCARDIAL INFARCTION 03/29/2016 LISETH PRETTY MD Ot I25.5 ISCHEMIC CARDIOMYOPATHY 03/29/2016 LISETH PRETTY MD Ot 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 03/29/2016 LISETH PRETTY MD Ot I50.22 CHRONIC SYSTOLIC (CONGESTIVE) HEART FAIL 03/29/2016 LISETH PRETTY MD Ot Z79.02 JAIL (CURRENT) USE OF ANTITHROMBOTI 03/29/2016 LISETH PRETTY MD Ot Z79.899 OTHER BAKER SECOND (CURRENT) DRUG THERAPY 03/29/2016 LISETH PRETTY MD Ot Z95.5 PRESENCE OF CORONARY ANGIOPLASTY IMPLANT 04/11/2016 RICHELLE CASE Ot E78.2 MIXED HYPERLIPIDEMIA 04/11/2016 RICHELLE CASE Ot I10 ESSENTIAL (PRIMARY) HYPERTENSION 04/11/2016 RICHELLE CASE Ot I25.10 ATHSCL HEART DISEASE OF [place] CORONARY 04/11/2016 RICHELLE CASE Ot R60.0 LOCALIZED EDEMA 04/13/2016 RICHELLE CASE Ot E78.2 MIXED HYPERLIPIDEMIA 04/13/2016 RICHELLE CASE Ot I10 ESSENTIAL (PRIMARY) HYPERTENSION 04/13/2016 RICHELLE CASE Ot I25.10 ATHSCL HEART DISEASE OF [place] CORONARY 04/13/2016 RICHELLE CASE Ot R60.0 LOCALIZED EDEMA 05/04/2016 LISETH PRETTY MD, Ot E78.5 HYPERLIPIDEMIA, UNSPECIFIED 05/04/2016 LISETH PRETTY MD, Ot I10 ESSENTIAL (PRIMARY) HYPERTENSION 05/04/2016 LISETH PRETTY MD, Ot I25.10 ATHSCL HEART DISEASE OF [place] CORONARY 05/04/2016 LISETH PRETTY MD Ot I25.2 OLD MYOCARDIAL INFARCTION 05/04/2016 LISETH PRETTY MD, Ot I25.5 ISCHEMIC CARDIOMYOPATHY 05/04/2016 LISETH PRETTY MD Ot 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 05/04/2016 LISETH PRETTY MD Ot I50.22 CHRONIC SYSTOLIC (CONGESTIVE) HEART FAIL 05/04/2016 LISETH PRETTY MD, Ot Z79.02 JAIL (CURRENT) USE OF ANTITHROMBOTI 05/04/2016 LISETH PRETTY MD Ot Z79.899 OTHER BAKER SECOND (CURRENT) DRUG THERAPY 05/04/2016 LISETH PRETTY MD Ot Z95.5 PRESENCE OF CORONARY ANGIOPLASTY IMPLANT 06/14/2016 SAMANTHA HARP Ot M75.111 INCOMPLETE ROTATR-CUFF TEAR/RUPTR OF R S 07/03/2016 SAMANTHA HARP Ot M75.111 INCOMPLETE ROTATR-CUFF TEAR/RUPTR OF R S 07/06/2016 SAMANTHA HARP Ot M75.111 INCOMPLETE ROTATR-CUFF TEAR/RUPTR OF R S 07/06/2016 ZARA ASH MD, Ot S43.491A OTHER SPRAIN OF RIGHT SHOULDER [...] 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, RIGHT SHOULDER 04/16/2017 ZARA ASH MD Ot L72.9 FOLLICULAR CYST OF THE SKIN AND SUBCUTAN 04/16/2017 ZARA ASH MD Ot Z01.818 ENCOUNTER FOR OTHER PREPROCEDURAL EXAMIN 04/17/2017 ZARA ASH MD, Ot L72.9 FOLLICULAR CYST OF THE SKIN AND SUBCUTAN 04/17/2017 ZARA ASH MD Ot Z01.818 ENCOUNTER FOR OTHER PREPROCEDURAL EXAMIN 04/25/2017 ZARA ASH MD, Ot E78.00 PURE HYPERCHOLESTEROLEMIA, UNSPECIFIED 04/25/2017 ZARA ASH MD, Ot I10 ESSENTIAL (PRIMARY) HYPERTENSION 04/25/2017 ZARA ASH MD, Ot I25.10 ATHSCL HEART DISEASE OF [place] CORONARY 04/25/2017 ZARA ASH MD, Ot I25.2 OLD MYOCARDIAL INFARCTION 04/25/2017 ZARA ASH MD, Ot K21.9 GASTRO-ESOPHAGEAL REFLUX DISEASE WITHOUT 04/25/2017 ZARA ASH MD, Ot M67.441 GANGLION, RIGHT HAND 04/25/2017 ZARA ASH MD, Ot Z79.82 BAKER SECOND (CURRENT) USE OF ASPIRIN 04/25/2017 ZAFUTA MD, ZARA P Ot Z79.899 OTHER BAKER SECOND (CURRENT) DRUG THERAPY 04/25/2017 ZARA ASH MD Ot Z87.891 PERSONAL HISTORY OF NICOTINE DEPENDENCE 04/25/2017 ZARA ASH MD Ot Z95.5 PRESENCE OF CORONARY ANGIOPLASTY IMPLANT 04/26/2017 ZARA ASH MD Ot E78.00 PURE HYPERCHOLESTEROLEMIA, UNSPECIFIED 04/26/2017 ZARA ASH MD Ot I10 ESSENTIAL (PRIMARY) HYPERTENSION 04/26/2017 ZARA AHS MD Ot I25.10 ATHSCL HEART DISEASE OF [place] CORONARY 04/26/2017 ZARA ASH MD Ot I25.2 OLD MYOCARDIAL INFARCTION 04/26/2017 ZARA ASH MD Ot K21.9 GASTRO-ESOPHAGEAL REFLUX DISEASE WITHOUT 04/26/2017 ZARA ASH MD Ot M67.441 GANGLION, RIGHT HAND 04/26/2017 ZARA ASH MD Ot Z79.82 JAIL (CURRENT) USE OF ASPIRIN 04/26/2017 ZARA ASH MD Ot Z79.899 OTHER BAKER SECOND (CURRENT) DRUG THERAPY 04/26/2017 ZARA ASH MD Ot Z87.891 PERSONAL HISTORY OF NICOTINE DEPENDENCE 04/26/2017 ZARA ASH MD Ot Z95.5 PRESENCE OF CORONARY ANGIOPLASTY IMPLANT 05/09/2017 ZARA ASH MD Ot E78.00 PURE HYPERCHOLESTEROLEMIA, UNSPECIFIED 05/09/2017 ZARA ASH MD Ot I10 ESSENTIAL (PRIMARY) HYPERTENSION 05/09/2017 ZARA ASH MD Ot I25.10 ATHSCL HEART DISEASE OF [place] CORONARY 05/09/2017 ZARA ASH MD Ot I25.2 OLD MYOCARDIAL INFARCTION 05/09/2017 ZARA ASH MD Ot K21.9 GASTRO-ESOPHAGEAL REFLUX DISEASE WITHOUT 05/09/2017 ZARA ASH MD Ot M67.441 GANGLION, RIGHT HAND 05/09/2017 ZARA ASH MD Ot Z79.82 JAIL (CURRENT) USE OF ASPIRIN 05/09/2017 AZRA ASH MD Ot Z79.899 OTHER JAIL (CURRENT) DRUG THERAPY 05/09/2017 ZARA ASH MD Ot Z87.891 PERSONAL HISTORY OF NICOTINE DEPENDENCE 05/09/2017 ZARA ASH MD Ot Z95.5 PRESENCE OF CORONARY ANGIOPLASTY IMPLANT 05/09/2017 ZARA ASH MD Ot E78.00 PURE HYPERCHOLESTEROLEMIA, UNSPECIFIED 05/09/2017 ZARA ASH MD Ot I10 ESSENTIAL (PRIMARY) HYPERTENSION 05/09/2017 ZARA ASH MD, Ot I25.10 ATHSCL HEART DISEASE OF [place] CORONARY 05/09/2017 ZARA ASH MD, Ot I25.2 OLD MYOCARDIAL INFARCTION 05/09/2017 ZARA ASH MD Ot K21.9 GASTRO-ESOPHAGEAL REFLUX DISEASE WITHOUT 05/09/2017 ZARA ASH MD Ot M67.441 GANGLION, RIGHT HAND 05/09/2017 ZARA ASH MD, Ot Z79.82 JAIL (CURRENT) USE OF ASPIRIN 05/09/2017 ZARA ASH MD, Ot Z79.899 OTHER BAKER SECOND (CURRENT) DRUG THERAPY 05/09/2017 ZARA ASH MD, Ot Z87.891 PERSONAL HISTORY OF NICOTINE DEPENDENCE 05/09/2017 ZARA ASH MD Ot Z95.5 PRESENCE OF CORONARY ANGIOPLASTY IMPLANT 12/11/2017 VIKTORIYA ALONZO, CRIS Nelson Ot 272.4 HYPERLIPIDEMIA NEC/NOS 12/11/2017 CRIS SADLER MD Ot 401.9 HYPERTENSION NOS 12/11/2017 CRIS SADLER MD Ot 562.10 DIVERTICULOSIS COLON (W/O MENT OF HEMORR 12/11/2017 CRIS SADLER MD Ot V76.51 SCREEN MAL NEOP-COLON 12/11/2017 CRIS SADLER MD Ot V72.84 EXAM PRE-OPERATIVE NOS 12/11/2017 RICHELLE [...] ARTERY OCCLUSION W O CEREBRAL IN 12/11/2017 MARIELLE WARREN RICHELLE K Ot 782.3 EDEMA 12/11/2017 RICHELLE CASE Ot 272.4 HYPERLIPIDEMIA NEC/NOS 12/11/2017 RICHELLE CASE Ot 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 12/11/2017 RICHELLE CASE Ot 397.0 TRICUSPID VALVE DISEASE 12/11/2017 RICHELLE CASE Ot 401.9 HYPERTENSION NOS 12/11/2017 RICHELLE CASE Ot 414.00 CORON ATHEROSCLER NOS TYPE VESSEL, NATIV 12/11/2017 RICHELLE CASE Ot 433.10 CAROTID ARTERY OCCLUSION W O CEREBRAL IN 12/11/2017 RICHELLE CASE Ot 782.3 EDEMA 12/11/2017 RICHELLE CASE Ot 793.2 NOSP (ABN) FINDINGS ON RADIOLOGICAL OT 12/11/2017 RICHELLE CASE Ot 272.4 HYPERLIPIDEMIA NEC/NOS [...] CASE Ot I25.10 ATHSCL HEART DISEASE OF [place] CORONARY 12/11/2017 RICHELLE CASE Ot R60.0 LOCALIZED EDEMA 12/11/2017 RICHELLE CASE Ot E78.2 MIXED HYPERLIPIDEMIA 12/11/2017 RICHELLE CASE Ot I10 ESSENTIAL (PRIMARY) HYPERTENSION 12/11/2017 RICHELLE CASE Ot I25.10 ATHSCL HEART DISEASE OF [place] CORONARY 12/11/2017 RICHELLE CASE Ot R60.0 LOCALIZED EDEMA 12/11/2017 SAMANTHA HARP Ot M75.111 INCOMPLETE ROTATR-CUFF TEAR/RUPTR OF R S 12/12/2017 AUSTYN MACKAY APRN Ot M17.11 UNILATERAL PRIMARY OSTEOARTHRITIS, RIGHT 12/12/2017 AUSTYN MACKAY APRN Ot S83.241A OTH TEAR OF MEDIAL MENISCUS, CURRENT INJ 03/28/2018 ZARA ASH MD Ot M17.11 UNILATERAL PRIMARY OSTEOARTHRITIS, RIGHT 03/28/2018 ZARA ASH MD Ot R53.83 OTHER FATIGUE 03/28/2018 ZARA ASH MD Ot Z01.811 ENCOUNTER FOR PREPROCEDURAL RESPIRATORY 03/28/2018 ZARA ASH MD Ot Z01.812 ENCOUNTER FOR PREPROCEDURAL LABORATORY E 03/29/2018 ZARA ASH MD Ot M17.11 UNILATERAL PRIMARY OSTEOARTHRITIS, RIGHT 03/29/2018 ZARA ASH MD Ot R53.83 OTHER FATIGUE 03/29/2018 ZARA ASH MD Ot Z01.811 ENCOUNTER FOR PREPROCEDURAL RESPIRATORY 03/29/2018 ZARA ASH MD Ot Z01.812 ENCOUNTER FOR PREPROCEDURAL LABORATORY E 04/05/2018 ZARA ASH MD Ot E78.00 PURE HYPERCHOLESTEROLEMIA, UNSPECIFIED 04/05/2018 ZARA ASH MD Ot H91.93 UNSPECIFIED HEARING LOSS, BILATERAL 04/05/2018 ZARA ASH MD Ot I10 ESSENTIAL (PRIMARY) HYPERTENSION 04/05/2018 ZARA ASH MD Ot I25.10 ATHSCL HEART DISEASE OF [place] CORONARY 04/05/2018 ZARA ASH MD, Ot I25.119 ATHSCL HEART DISEASE OF [place] COR ART W 04/05/2018 ZARA ASH MD, Ot I25.2 OLD MYOCARDIAL INFARCTION 04/05/2018 ZARA ASH MD, Ot I44.60 UNSPECIFIED FASCICULAR BLOCK 04/05/2018 ZARA ASH MD, Ot K21.9 GASTRO-ESOPHAGEAL REFLUX DISEASE WITHOUT 04/05/2018 ZARA ASH MD, Ot K59.09 OTHER CONSTIPATION 04/05/2018 ZARA ASH MD, Ot M17.11 UNILATERAL PRIMARY OSTEOARTHRITIS, RIGHT 04/05/2018 ZARA ASH MD, Ot M54.9 DORSALGIA, UNSPECIFIED 04/05/2018 ZARA ASH MD, Ot R11.2 NAUSEA WITH VOMITING, UNSPECIFIED 04/05/2018 ZARA ASH MD Ot Z79.02 JAIL (CURRENT) USE OF ANTITHROMBOTI 04/05/2018 ZARA ASH MD Ot Z79.82 JAIL (CURRENT) USE OF ASPIRIN 04/05/2018 ZARA ASH MD, Ot Z87.11 PERSONAL HISTORY OF PEPTIC ULCER DISEASE 04/05/2018 ZARA ASH MD, Ot Z87.891 PERSONAL HISTORY OF NICOTINE DEPENDENCE 04/05/2018 ZARA ASH MD Ot Z95.5 PRESENCE OF CORONARY ANGIOPLASTY IMPLANT 04/05/2018 ZARA ASH MD Ot Z96.652 PRESENCE OF LEFT ARTIFICIAL KNEE JOINT 04/05/2018 ZARA ASH MD Ot Z97.4 PRESENCE OF EXTERNAL HEARING-AID 07/12/2018 RICHELLE CASE Ot E78.5 HYPERLIPIDEMIA, UNSPECIFIED 07/12/2018 RICHELLE CASE Ot I10 ESSENTIAL (PRIMARY) HYPERTENSION 07/12/2018 RICHELLE CASE Ot I25.10 ATHSCL HEART DISEASE OF [place] CORONARY 07/12/2018 RICHELLE CASE Ot 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 07/17/2018 RICHELLE CASE Ot E78.5 HYPERLIPIDEMIA, UNSPECIFIED 07/17/2018 RICHELLE CASE Ot I10 ESSENTIAL (PRIMARY) HYPERTENSION 07/17/2018 RICHELLE CASE Ot I25.10 ATHSCL HEART DISEASE OF [place] CORONARY 07/17/2018 RICHELLE CASE Ot 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 07/17/2018 RICHELLE CASE Ot E78.5 HYPERLIPIDEMIA, UNSPECIFIED 07/17/2018 RICHELLE CASE Ot I10 ESSENTIAL (PRIMARY) HYPERTENSION 07/17/2018 RICHELLE CASE Ot I25.10 ATHSCL HEART DISEASE OF [place] CORONARY 07/17/2018 RICHELLE CASE Ot 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 07/24/2018 LISETH PRETTY MD Ot E78.5 HYPERLIPIDEMIA, UNSPECIFIED 07/24/2018 LISETH PRETTY MD Ot I08.3 COMB RHEUMATIC DISORD OF MITRAL, AORTIC 07/24/2018 LISETH PRETTY MD Ot I10 ESSENTIAL (PRIMARY) HYPERTENSION 07/24/2018 LISETH PRETTY MD Ot I25.10 ATHSCL HEART DISEASE OF [place] CORONARY 07/24/2018 LISETH PRETTY MD Ot I65.29 OCCLUSION AND STENOSIS OF UNSPECIFIED CA 07/24/2018 LISETH PRETTY MD Ot R07.9 CHEST PAIN, UNSPECIFIED 07/24/2018 LISETH PRETTY MD Ot Z79.899 OTHER BAKER SECOND (CURRENT) DRUG THERAPY 07/24/2018 LISETH PRETTY MD Ot Z87.891 PERSONAL HISTORY OF NICOTINE DEPENDENCE 07/24/2018 LISETH PRETTY MD Ot Z95.5 PRESENCE OF CORONARY ANGIOPLASTY IMPLANT 07/26/2018 LISETH PRETTY MD Ot E78.5 HYPERLIPIDEMIA, UNSPECIFIED 07/26/2018 LISETH PRETTY MD Ot I08.3 COMB RHEUMATIC DISORD OF MITRAL, AORTIC 07/26/2018 LISETH PRETTY MD Ot I10 ESSENTIAL (PRIMARY) HYPERTENSION 07/26/2018 LISETH PRETTY MD Ot I25.10 ATHSCL HEART DISEASE OF [place] CORONARY 07/26/2018 LISETH PRETTY MD Ot I65.29 OCCLUSION AND STENOSIS OF UNSPECIFIED CA 07/26/2018 MARIA DE JESUS ALONZO, LISETH Banerjee Ot R07.9 CHEST PAIN, UNSPECIFIED 07/26/2018 MARIA DE JESUS ALONZO, LISETH Banerjee Ot Z79.899 OTHER BAKER SECOND (CURRENT) DRUG THERAPY 07/26/2018 MARIA DE JESUS ALONZO, LISETH Banerjee Ot Z87.891 PERSONAL HISTORY OF NICOTINE DEPENDENCE 07/26/2018 MARIA DE JESUS ALONZO, LISETH Banerjee Ot Z95.5 PRESENCE OF CORONARY ANGIOPLASTY IMPLANT 08/02/2018 RICHELLE CASE K Ot E78.5 HYPERLIPIDEMIA, UNSPECIFIED 08/02/2018 MARIELLE WARREN, RICHELLE K Ot I10 ESSENTIAL (PRIMARY) HYPERTENSION 08/02/2018 MARIELLE WARREN RICHELLE K Ot I25.10 ATHSCL HEART DISEASE OF [place] CORONARY 08/02/2018 MARIELLE WARREN RICHELLE K Ot 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 08/09/2018 MARIELLE WARREN RICHELLE K Ot E78.5 HYPERLIPIDEMIA, UNSPECIFIED 08/09/2018 MARIELLE WARREN RICHELLE K Ot I10 ESSENTIAL (PRIMARY) HYPERTENSION 08/09/2018 MARIELLE WARREN, RICHELLE K Ot I25.10 ATHSCL HEART DISEASE OF [place] CORONARY 08/09/2018 MARIELLE WARREN RICHELLE K Ot 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 08/09/2018 MARIELLE WARREN RICHELLE K Ot E78.5 HYPERLIPIDEMIA, UNSPECIFIED 08/09/2018 MARIELLE WARREN, RICHELLE K Ot I10 ESSENTIAL (PRIMARY) HYPERTENSION 08/09/2018 MARIELLE WARREN RICHELLE K Ot I25.10 ATHSCL HEART DISEASE OF [place] CORONARY 08/09/2018 MARIELLE WARREN, RICHELLE K Ot 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 11/18/2018 NILSA ALONZO, ZARA Eller Ot M41.86 OTHER FORMS OF SCOLIOSIS, LUMBAR REGION 11/18/2018 NILSA ALONZO, ZARA Eller Ot M47.26 OTHER SPONDYLOSIS WITH RADICULOPATHY, NAILA 11/18/2018 NILSA ALONZO, ZARA Eller Ot M48.07 SPINAL STENOSIS, LUMBOSACRAL REGION 11/18/2018 ZAZARA MULLIGAN MD, Ot M51.36 OTHER INTERVERTEBRAL DISC DEGENERATION, 11/18/2018 ZARA ASH MD, Ot N28.1 CYST OF KIDNEY, ACQUIRED 11/18/2018 ZARA AHS MD, Ot Z98.890 OTHER SPECIFIED POSTPROCEDURAL STATES 11/21/2018 ZARA ASH MD, Ot M41.86 OTHER FORMS OF SCOLIOSIS, LUMBAR REGION 11/21/2018 ZARA ASH MD, Ot M47.26 OTHER SPONDYLOSIS WITH RADICULOPATHY, NAILA 11/21/2018 ZARA ASH MD, Ot M48.07 SPINAL STENOSIS, LUMBOSACRAL REGION 11/21/2018 ZARA ASH MD, Ot M51.36 OTHER INTERVERTEBRAL DISC DEGENERATION, 11/21/2018 ZARA ASH MD, Ot N28.1 CYST OF KIDNEY, ACQUIRED 11/21/2018 ZARA ASH MD, Ot Z98.890 OTHER SPECIFIED POSTPROCEDURAL STATES Procedures Code Description Performed By Performed On 37.22 LEFT HEART CARDIAC CATH 03/29/2013 88.53 LT HEART ANGIOCARDIOGRAM 03/29/2013 88.56 CORONAR ARTERIOGR-2 CATH 03/29/2013 [id number] REPLACE OF R KNEE JT WITH SYNTH SUB, ZHAO 04/03/2018 Results Test Result Range Methicillin resistant Staphylococcus aureus (MRSA) screening culture - 03/29/16 08:40 Methicillin resistant Staphylococcus aureus (MRSA) screening culture NEG NRG Methicillin resistant Staphylococcus aureus (MRSA) screening culture - 07/06/16 12:15 Methicillin resistant Staphylococcus aureus (MRSA) screening culture NEG NRG Methicillin resistant Staphylococcus aureus (MRSA) screening culture - 04/16/17 12:09 Methicillin resistant Staphylococcus aureus (MRSA) screening [...] Automated erythrocyte mean corpuscular hemoglobin concentration measurement (mass/volume) 33 g/dL 32-36 Automated erythrocyte distribution width ratio 13.9 % 10.0- 14.5 Automated blood platelet count (count/volume) 179 10*3/uL [...] Blood monocytes automated count (number/volume) 0.6 10*3 0.0- 1.0 Automated eosinophil count 0.2 10*3/uL 0.0-0.3 Automated [...] Serum or plasma aspartate aminotransferase measurement (enzymatic activity/volume) 21 U/L 5-34 Serum or plasma alanine aminotransferase measurement (enzymatic activity/volume) 21 U/L 0-55 Serum or plasma protein measurement (mass/volume) 6.4 g/dL 6.4-8.2 Serum or plasma albumin measurement (mass/volume) 4.2 g/dL 3.2-4.5 CALCIUM CORRECTED 8.9 mg/dL 8.5-10.1 Erythrocyte sedimentation rate by westergren method - 03/28/18 10:05 Erythrocyte sedimentation rate by westergren method 4 mm 0- 30 Blood type T Indirect antibody screen panel - 03/28/18 10:05 ABO+Rh group OP NRG Blood group antibody screen NEGATIVE NRG Methicillin resistant Staphylococcus aureus (MRSA) screening culture - 03/28/18 10:05 Methicillin resistant Staphylococcus aureus (MRSA) screening culture NEG NRG Complete urinalysis with reflex to culture - 03/28/18 10:20 Urine color determination YELLOW NRG Urine clarity determination SLIGHTLY CLOUDY NRG Urine pH measurement by test strip 6.5 5-9 Specific gravity of urine by test strip 1.010 1.016-1.022 Urine protein assay by test strip, semi-quantitative [...] sediment leukocyte count by microscopy (number/high power field) NONE NRG Bacteria detection in urine sediment by light microscopy TRACE NRG Squamous epithelial cells detection in urine sediment by light microscopy 0-2 NRG Crystals detection in urine sediment by light microscopy NONE NRG Casts detection in urine sediment by light microscopy NONE NRG Mucus detection in urine sediment by light microscopy NEGATIVE NRG Complete urinalysis with reflex to culture NO NRG Blood type T Indirect antibody screen panel - 04/03/18 07:40 ABO+Rh group OP NRG Transfusion band number [id number] NRG Blood group antibody screen NEGATIVE NRG Whole blood hemoglobin and hematocrit panel - 04/04/18 04:35 Venous blood hemoglobin measurement (mass/volume) 13.0 g/dL 13.3-17.7 Blood hematocrit (volume fraction) 39 % 40-54 Whole blood hemoglobin and hematocrit panel - 04/05/18 03:30 Venous blood hemoglobin measurement (mass/volume) 12.6 g/dL 13.3-17.7 Blood hematocrit (volume fraction) 39 % 40-54 Complete urinalysis with reflex to culture - 07/24/18 10:46 Urine color determination YELLOW NRG Urine clarity determination CLEAR NRG Urine pH measurement by test strip 7 5-9 Specific gravity of urine by test strip 1.010 1.016-1.022 Urine protein assay by test strip, semi-quantitative 1+ NEGATIVE Urine glucose detection by automated test strip NEGATIVE NEGATIVE Erythrocytes detection in urine sediment by light microscopy NEGATIVE NEGATIVE Urine ketones detection by automated test strip NEGATIVE NEGATIVE Urine nitrite detection by test strip NEGATIVE NEGATIVE Urine total bilirubin detection by test strip NEGATIVE NEGATIVE Urine urobilinogen measurement by automated test strip (mass/volume) NORMAL NORMAL Urine leukocyte esterase detection by dipstick NEGATIVE NEGATIVE Automated urine sediment erythrocyte count by microscopy (number/high power field) NONE NRG Automated urine sediment leukocyte count by microscopy (number/high power field) NONE NRG Bacteria detection in urine sediment by light microscopy NEGATIVE NRG Squamous epithelial cells detection in urine sediment by light microscopy RARE NRG Crystals detection in urine sediment by light microscopy NONE NRG Casts detection in urine sediment by light microscopy NONE NRG Mucus detection in urine sediment by light microscopy NEGATIVE NRG Complete urinalysis with reflex to culture NO NRG Automated blood complete blood count (hemogram) panel - 07/24/18 11:00 Blood leukocytes automated count (number/volume) 4.3 10*3/uL 4.3-11.0 Blood erythrocytes automated count (number/volume) 5.08 10*6/uL 4.35-5.85 Venous blood hemoglobin measurement (mass/volume) 14.9 g/dL 13.3-17.7 Blood hematocrit (volume fraction) 45 % 40-54 Automated erythrocyte mean corpuscular volume 89 [foz_us] 80-99 Automated erythrocyte mean corpuscular hemoglobin (mass per erythrocyte) 29 pg 25-34 Automated erythrocyte mean corpuscular hemoglobin concentration measurement (mass/volume) 33 g/dL 32-36 Automated erythrocyte distribution width ratio 14.4 % 10.0- 14.5 Automated blood platelet count (count/volume) 144 10*3/uL 130-400 Automated blood platelet mean volume measurement 11.0 [foz_us] 7.4-10.4 PT panel in platelet poor plasma by coagulation assay - 07/24/18 11:00 Prothrombin time (PT) in platelet poor plasma by coagulation assay 12.9 s 12.2-14.7 INR in platelet poor plasma or blood by coagulation assay 1.0 0.8-1.4 Activated partial thromboplastin time (aPTT) in platelet poor plasma bycoagulation assay - 07/24/18 11:00 Activated partial thromboplastin time (aPTT) in platelet poor plasma bycoagulation assay 33 s 24-35 Comprehensive metabolic panel - 07/24/18 11:00 Serum or plasma sodium measurement (moles/volume) 140 mmol/L 135-145 Serum or plasma potassium measurement (moles/volume) 4.2 mmol/L 3.6-5.0 Serum or plasma chloride measurement (moles/volume) 106 mmol/L 98-107 Carbon dioxide 25 mmol/L 21-32 Serum or plasma anion gap determination (moles/volume) 9 mmol/L 5-14 Serum or plasma urea nitrogen measurement (mass/volume) 15 mg/dL 7-18 Serum or plasma creatinine measurement (mass/volume) 1.35 mg/dL 0.60-1.30 Serum or plasma urea nitrogen/creatinine mass ratio 11 NRG Serum or plasma creatinine measurement with calculation of estimated glomerular filtration rate 52 NRG Serum or plasma glucose measurement (mass/volume) 101 mg/dL 70-105 Serum or plasma calcium measurement (mass/volume) 9.5 mg/dL 8.5-10.1 Serum or plasma total bilirubin measurement (mass/volume) 0.7 mg/dL 0.1-1.0 Serum or plasma alkaline phosphatase measurement (enzymatic activity/volume) 83 U/L 40-136 Serum or plasma aspartate aminotransferase measurement (enzymatic activity/volume) 23 U/L 5-34 Serum or plasma alanine aminotransferase measurement (enzymatic activity/volume) 21 U/L 0-55 Serum or plasma protein measurement (mass/volume) 6.7 g/dL 6.4-8.2 Serum or plasma albumin measurement (mass/volume) 4.5 g/dL 3.2-4.5 CALCIUM CORRECTED 9.1 mg/dL 8.5-10.1 Lipid 1996 panel - 07/24/18 11:00 Serum or plasma triglyceride measurement (mass/volume) 121 mg/dL <150 Serum or plasma cholesterol measurement (mass/volume) 144 mg/dL < 200 Serum or plasma cholesterol in HDL measurement (mass/volume) 49 mg/dL 40-60 Cholesterol in LDL [mass/volume] in serum or plasma by direct assay 71 mg/dL 1-129 Serum or plasma cholesterol in VLDL measurement (mass/volume) 24 mg/dL 5-40 Methicillin resistant Staphylococcus aureus (MRSA) screening culture - 07/24/18 11:00 Methicillin resistant Staphylococcus aureus (MRSA) screening culture NEG NRG Methicillin resistant Staphylococcus aureus (MRSA) screening culture - 11/26/18 10:42 Methicillin resistant Staphylococcus aureus (MRSA) screening culture NEG NRG Encounters ACCT No. Visit Date/Time Discharge Status Pt. Type Provider Facility Loc./Unit Complaint [id number] 11/26/2018 10:25:00 11/26/2018 10:50:00 DIS Outpatient ZARA ASH MD Via [facility] PREOP RIGH KNEE ADHESIVE CAPSULITIS [id number] 11/15/2018 09:22:00 11/15/2018 23:59:59 CLS Outpatient ZARA ASH MD Via [facility] RAD LUMBAR RADICULOPATHY [id number] 07/24/2018 10:29:00 07/24/2018 18:10:00 DIS Outpatient LISETH PRETTY MD Via [facility] CATH ABN STRESS TEST, CAD, HTN, CLP [id number] 07/15/2018 07:24:00 07/15/2018 23:59:59 CLS Outpatient RICHELLE CASE Via [facility] SHANNAN AR,CAD [id number] 07/11/2018 10:00:00 07/11/2018 23:59:59 CLS Outpatient RICHELLE CASE Via [facility] SHANNAN TORIBIO,CAD [id number] 04/03/2018 07:20:00 04/05/2018 10:00:00 DIS Inpatient ZARA ASH MD Via [facility] 4TH OSTEOARTHRITIS RIGHT KNEE [id number] 03/28/2018 09:20:00 03/28/2018 10:30:00 DIS Outpatient ZARA ASH MD Via [facility] PREOP OSTEOARTHRITIS [id number] 12/11/2017 13:18:00 12/11/2017 23:59:59 CLS Outpatient CODIE AUSTYN Dk RODAS Via [facility] RAD RIGHT KNEE PAIN [id number] 04/25/2017 08:50:00 04/25/2017 13:06:00 DIS Outpatient ZARA ASH MD Via [facility] RIGHT LONG FINGER CYST [id number] 04/16/2017 11:56:00 04/16/2017 12:14:00 DIS Outpatient ZARA ASH MD Via [facility] PREOP RIGHT LONG FINGER CYST [id number] 07/12/2016 06:55:00 07/12/2016 13:10:00 DIS Outpatient ZARA ASH MD Via [facility] SDC RIGHT TORN LABRUM [id number] 07/06/2016 11:59:00 07/06/2016 12:44:00 DIS Outpatient ZARA ASH MD Via [facility] PREOP RIGHT TORN LABRUM [id number] 06/08/2016 15:52:00 06/08/2016 23:59:59 CLS Outpatient SAMATNHA HARP [facility] RAD RTC PARTIAL RIGHT [id number] 03/29/2016 07:48:00 03/29/2016 14:58:00 DIS Outpatient LISETH PRETTY MD Via [facility] CATH CAD,HTN [id number] 03/22/2016 11:05:00 03/22/2016 23:59:59 CLS Outpatient RICHELLE CASE [facility] CARD CAD,HTN [id number] 02/22/2016 10:08:00 02/22/2016 23:59:59 CLS Outpatient RICHELLE CASE [facility] CARD CAD,HTN [id number] 09/17/2015 20:53:00 09/24/2015 12:40:00 DIS Inpatient CRIS SADLER MD Via [facility] 4TH PARTIAL SBO VS ILEUS,DEHYDRATION,S/P HERNIA REPAIR [id number] 09/13/2015 11:22:00 09/13/2015 17:35:00 DIS Outpatient CRIS SADLER MD [facility] VENTRAL HERNIA [id number] 09/10/2015 09:59:00 09/10/2015 11:43:00 DIS Outpatient CRIS SADLER MD Via [facility] PREOP VENTRAL HERNIA [id number] 09/21/2014 07:49:00 09/21/2014 23:59:59 CLS Outpatient RICHELLE CASE Via [facility] CARD BRADYCARDIA,CAD [id number] 09/17/2014 07:54:00 09/17/2014 23:59:59 CLS Outpatient RICHELLE CASE Via [facility] CARD BRADYCARDIA,CAD,MINNA [id number] 03/29/2013 16:32:00 03/30/2013 11:15:00 DIS Inpatient MARIA DE JESUS ALONZO, LISETH Banerjee [facility] CSD CHEST PAIN [id number] 03/26/2013 11:50:00 03/26/2013 23:59:59 CLS Outpatient RICHELLE CASE Via [facility] RAD CAD,HTN,HLP [id number] 03/25/2013 10:34:00 03/25/2013 23:59:59 CLS Outpatient RICHELLE CASE Via [facility] CARD CAD,HTN,HLP, [id number] 12/23/2012 09:39:00 12/23/2012 23:59:59 CLS Outpatient CRIS SADLER MD Via [facility] SCREENING [id number] 12/18/2012 08:19:00 12/18/2012 23:59:59 CLS Outpatient CRIS SADLER MD Via [facility] PREOP SCREENING [id number] 12/04/2018 09:45:00 PEN Paulette ASH MD, ZARA Tubbs [facility] RIGH KNEE ADHESIVE CAPSULITIS [id number] 01/25/2011 10:30:00 Document Registration 05/201603/18/2018 15:22:05 03/18/2018 23:59:59 [facility] Outpatient Pippa Daniels [id number] 09/21/2014 07:50:06 ACT Document Registration
[2018-12-04] MEDS ORDERED: ceFAZolin INJECTION 1,000 MG in WATER (STERILE) FOR INJECTION 10 ML IV ONE (08:15)
[2018-12-04] MEDS ORDERED: BUPIVACAINE 0.25% 30 ML (SENSORCAINE) VIAL ONE (08:43)
[2018-12-04] MEDS ORDERED: MIDAZOLAM 2 MG/2 ML (VERSED) VIAL ONE (08:52)
[2018-12-04] MEDS ORDERED: fentaNYL INJECTION 100 MCG/2 ML AMP ONE (08:52)
[2018-12-04] MEDS ORDERED: LIDOCAINE PF 2% 5 ML (XYLOCAINE) VIAL ONE (08:57)
[2018-12-04] MEDS ORDERED: DEXAMETHASONE 10 MG/ML (DECADRON) 1 ML VIAL ONE (08:57)
[2018-12-04] MEDS ORDERED: proPOfol 200 MG/20 ML (DIPRIVAN) VIAL IV ONE (08:57)
[2018-12-04] MEDS ORDERED: ONDANSETRON 4 MG/2 ML (SDV) Z0FRAN ONE (08:57)
[2018-12-04] MEDS ORDERED: HYDROcodone/APAP 7.5 MG/325 MG (LORTAB, LORCET PLUS) TABLET PO PRN (09:15)
--- NOTE | 2018-12-04 09:16 | Progress Note-Pre Operative ---
Pre-Operative Progress Note H&P Reviewed The H&P was reviewed, patient examined and no changes noted. Date Seen by Provider: Dec 04, 2018 Time Seen by Provider: 09:16 Date H&P Reviewed: Dec 04, 2018 Time H&P Reviewed: 09:16 Pre-Operative Diagnosis: right knee adhesions status post toatl knee arthroplasty ZARA ASH MD Dec 04, 2018 09:16
--- NOTE | 2018-12-04 09:17 | Progress Note-Post Operative ---
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
[2018-12-04] MEDS ORDERED: SEVOFLURANE (ULTANE) 15 ML INHAL SOLN ONE ×2 (09:19→09:30)
[2018-12-04] MEDS: morphine PF (DURAMORPH) 10 MG/10 ML AMP ONE ×2 (09:42→13:11)
[2018-12-04] MEDS ORDERED: ONDANSETRON 4 MG/2 ML (SDV) Z0FRAN IVP PRN (10:00)
[2018-12-04] MEDS ORDERED: morphine INJ 10 MG/ML 1ML (SYR OR VIAL) IVP ONE (10:00)
[2018-12-04] MEDS ORDERED: MEPERIDINE (DEMEROL) INJ 50 MG/ML IVP ONE (10:00)
[2018-12-04] MEDS ORDERED: HYDR-3816 PO (10:55)
--- NOTE | 2018-12-04 11:22 | Physical Therapy Ortho Eval ---
PT Orthopedic Evaluation Type of Surgery Knee Scope right side WBAT Prior Level of Function Current Living Status: Spouse Locomotion (Upon Admit): Independent Established Durable Medical Eq: Crutches Patient has used crutches previously. Subjective Subjective Patient in bed pre tx, has no complaints of pain. Has intact light touch sensation in right leg below the knee. Entry Into Home: Level Entry Other Obstacles: has a few steps in the home Motor Control Motor Control: Motor Control WNL ROM right knee extension +2 degrees, flexion 92 degrees Strength NT Transfer Transfers (B, C, W/C) (FIM): 7 Gait Gait Assistive Device: None He has crutches to use but feels confident that he can ambulate without an assistive device. Right Lower Extremity: Right Weight Bearing Status RLE: Weight Bearing/Tolerated Gait (FIM): 7 Distance: 150' Summary/Comments Patient ambulated 150' without an assistive device with independence. He has no LOB or unsteadiness or knee buckling. He also went up and down 1 step with SBA and just needed cues for foot placement. Treatment Rendered Treatment: Therapeutic Exercises, Gait Train, Step Train Exercise Instruction: Quad Sets, Heel Slides, Ankle Pumps Assessment/Goals Goal Time Frame: 1 Visit Understands HEP: Yes Safe Ambulation: Yes Plan Treatment Plan: Discharge PT/Family Agrees to Plan: Yes Time Time In: 1100 Time Out: 1113 Total Billed Treatment Time: 13 Billed Treatment Time 1 visit SKYE CHATMAN PT Dec 04, 2018 11:22
--- NOTE | 2018-12-04 12:43 | Anesthesia-General Post-Op ---
General Patient Condition Mental Status/LOC: Same as Preop Cardiovascular: Satisfactory Nausea/Vomiting: Absent Respiratory: Satisfactory Pain: Controlled Complications: Absent Post Op Complications Complications None Follow Up Care/Instructions Patient Instructions None needed. Anesthesia/Patient Condition Patient Condition Patient is doing well, no complaints, stable vital signs, no apparent adverse anesthesia problems. No complications reported per nursing. SAMANTHA EDWARD CRNA Dec 04, 2018 12:43
--- NOTE | 2018-12-04 12:47 | OPERATIVE REPORT ---
DATE OF SERVICE: 12/04/2018 PREOPERATIVE DIAGNOSIS: Right knee adhesions status post total knee arthroplasty. POSTOPERATIVE DIAGNOSIS: Right knee adhesions status post total knee arthroplasty. PROCEDURE: Right knee arthroscopic lysis of adhesions. SURGEON: Bucky Tovar MD HYPERBARIC WELDER DIVER: Jakub Quintanilla, who assisted throughout the procedure and closed the incisions. ANESTHESIA: General endotracheal by Darryl Prajapati CRNA. TOURNIQUET TIME: Not applicable. ESTIMATED BLOOD LOSS: Minimal. DRAINS: None. COMPLICATIONS: None. POSTOPERATIVE PLAN: Weightbearing as tolerated with early range of motion. The patient was transferred to the recovery room awake and stable condition. STATEMENT OF MEDICAL NECESSITY: The patient is a 78-year-old gentleman who previously underwent right total knee arthroplasty who has had excellent movement and stability; however, he has had medial knee pain with popping. Of note, he underwent an MRI of his lumbar spine, which reveals significant stenosis. The patient was counseled that his symptoms may be coming from his lumbar spine. We elected to proceed with diagnostic arthroscopy, understanding that this may not alleviate his symptoms. Examination under anesthesia revealed range of motion of 0/0/125. No varus valgus laxity. Negative anterior and posterior drawer. His patella tracked well. Arthroscopic findings demonstrated intact components with no loosening noted. There was a fibrosis noted in the superior medial pouch in his area of pain and into the medial gutter. PROCEDURE: After risks and benefits of the procedure were discussed and questions were answered, an informed consent was signed and placed in the chart. The operative site was confirmed in the preoperative holding area initialed by the surgeon. The patient was then transported to the operating room and after adequate levels of general endotracheal anesthetic were obtained, a timeout was called, confirming the operative site. Examination under anesthesia was performed with the above findings noted. Right lower extremity was prepped and draped in the usual sterile fashion. The knee joint was injected with 60 mL of fluid and the standard inferolateral portals were placed with the arthroscope under direct visualization, inferior medial portal was created. The menisci, cruciates were carefully probed with the above findings noted. A diagnostic arthroscopy was carried out. The above findings were noted. The shaver was inserted and the adhesions in the superior medial pouch were resected with a shaver as were the ones in the medial gutter. The knee joint was copiously irrigated. The portal sites were closed with 4-0 nylon in simple interrupted fashion. The incisions were infiltrated with plain Marcaine. A soft dressing was applied and the patient was transported to the recovery room awake and in stable condition. Job ID: [id number] DocumentID: [id number] Dictated Date: 12/04/2018 09:46:18 Fabricator Artificial Breast Date: 12/04/2018 12:46:14 Dictated By: BUCKY TOVAR MD
== END 2018-12-04 11:45 | disposition home or self-care (01) ==
LOC: SDC 08:00
PROVIDERS: ATTEND Orthopaedic Surgery
DX: M23.8X1 Other internal derangements of right knee (principal); M24.661 Ankylosis, right knee; M48.061 Spinal stenosis, lumbar region without neurogenic claudication; E78.00 Pure hypercholesterolemia, unspecified; K21.9 Gastro-esophageal reflux disease without esophagitis; I25.2 Old myocardial infarction; Z96.653 Presence of artificial knee joint, bilateral; Z82.49 Family history of ischemic heart disease and other diseases of the circulatory system; Z79.82 Long term (current) use of aspirin; Z79.02 Long term (current) use of antithrombotics/antiplatelets; Z79.899 Other long term (current) drug therapy; Z87.891 Personal history of nicotine dependence

== ENCOUNTER → 2021-05-05 | Outpatient (CLI) | payer MEDICARE, OTHER ==
[~2021-05-05] MED LIST changes: -LISI-556 PO; +LISI5TAB20 PO; +OMEP20CA18 PO; -OXYC-471 PO; +OXYC1TAB11 PO; -PANT40TA3 PO; +PANT40TA52 PO
== END ==
LOC: CARD 11:30
PROVIDERS: ATTEND Physician Assistant
DX: I35.1 Nonrheumatic aortic (valve) insufficiency (principal); I10 Essential (primary) hypertension; I25.10 Atherosclerotic heart disease of native coronary artery without angina pectoris
CPT/HCPCS: 93306

== ENCOUNTER → 2021-07-07 | Outpatient (CLI) | payer MEDICARE | LOC: LAB FS 09:24 | PROVIDERS: ATTEND Emergency Medicine | DX: R05.9 Cough, unspecified (principal); Z20.822 Contact with and (suspected) exposure to COVID-19 | CPT/HCPCS: 87635 ==

== ENCOUNTER → 2021-08-10 | Outpatient (CLI) | payer MEDICARE ==
[~2021-08-10] VITALS: Ht 185 cm; Wt 109.0 kg
[~2021-08-10] MED LIST changes: +CATHETER FLUSH 10 ML SYR IVP PRN; +REGADENOSON 0.4 MG/5 ML SYR (LEXISCAN) IV ONE
[2021-08-10 13:13] VITALS: BP 150/73
--- NOTE | 2021-08-15 08:42 | Cardiology Stress Test Report ---
Stress Test Report Date of Procedure/Referring: Date of Procedure: Aug 10, 2021 Phuong Mathews Admitting Physician Pippa Daniels DO Indications: CAD Baseline Heart Rate: 61 Baseline Blood Pressure: Blood Pressure Systolic: 150 Blood Pressure Diastolic: 73 Baseline Vitals Vital Signs Date Time Temp Pulse Resp B/P (MAP) Pulse Ox O2 Delivery O2 Flow Rate FiO2 08/10/21 13:13 61 150/73 (98) Baseline EKG: Baseline EKG: LBBB Summary After explaining the procedure to the patient, he signed a consent and then brought to the stress nuclear laboratory. Patient received 0.4 mg Lexiscan for stress test, ECG, heart rate and blood pressure were monitored continuously. Resting and stress dose of radio tracer were injected, imaging was acquired and reviewed in short axis, horizontal long axis and vertical long axis views. TID: 1.04 SSS: 12 SDS: 2 EF: 50 1. Patient tolerated Lexiscan well 2. Baseline left bundle branch block persisted during the test 3. Fixed defect involving the whole inferior wall and inferolateral wall with no significant reversibility, probably due to diaphragmatic attenuation. 4. Normal left ventricular size with normal contractility, inferior wall is bear normally, ejection fraction 50% LISETH PRETTY MD Aug 15, 2021 08:42
== END ==
LOC: CARD 12:15
PROVIDERS: ATTEND Physician Assistant
DX: I25.10 Atherosclerotic heart disease of native coronary artery without angina pectoris (principal)
CPT/HCPCS: 78452; 93017; A9502

== ENCOUNTER 2022-01-02 14:40 | Emergency (ER) | payer MEDICARE ==
[~2022-01-02] VITALS: Ht 185 cm; Wt 97.0 kg
[~2022-01-02 14:40] MED LIST changes: -CATHETER FLUSH 10 ML SYR IVP PRN; -REGADENOSON 0.4 MG/5 ML SYR (LEXISCAN) IV ONE
[2022-01-02] MEDS ORDERED: NS IV 1000 ML 1,000 ML IV SCH (15:00)
--- NOTE | 2022-01-02 15:07 | ED General ---
General Chief Complaint: COVID19 Suspect/Confirmed Stated Complaint: N/V; DIARRHEA; FEVER Source of Information: Patient History of Present Illness Date Seen by Provider: Jan 02, 2022 Time Seen by Provider: 14:46 Initial Comments 81-year-old male presenting with complaints of subjective fever and chills with nausea, vomiting, diarrhea since this morning. He denies any ill contacts. He denies any pain or burning with urination. He has not had cough or shortness of breath. He reports that his family was concerned that he might have COVID so they made him come to the emergency department to be evaluated. He did travel to [place] but that was 3 weeks ago and he has been feeling fine until now Timing/Duration: 4-6 Hours Severity: Moderate Modifying Factors: worse with Eating Associated Systoms: No Chest Pain, No Cough, No Diaphoresis; Fever/Chills (Subjective); No Headaches, No Loss of Appetite, No Malaise; Nausea/Vomiting; No Rash, No Seizure, No Shortness of Air, No Syncope, No Weakness Allergies and Home Medications Allergies Coded Allergies: No Known Drug Allergies (Unverified , 07/06/16) Patient Home Medication List Home Medication List Reviewed: Yes Aspirin (Aspirin) 81 Mg Tab.chew, 81 MG PO DAILY, (Reported) Entered as Reported by: ELFEGO GARCIA on 04/16/17 1207 Atorvastatin Calcium (Atorvastatin Calcium) 40 Mg Tablet, 40 MG PO DAILY, (Reported) Entered as Reported by: DULCE FIGUEREDO on 03/29/16916 Clopidogrel Bisulfate (Plavix) 75 Mg Tablet, 75 MG PO DAILY, (Reported) Entered as Reported by: DULCE FIGUEREDO on 03/29/16916 Hydrocodone Bit/Acetaminophen (HYDROcodone/APAP 7.5/325 TAB) 1 Each Tablet, 1 TAB PO Q4H PRN for PAIN-MODERATE Prescribed by: MAJOR NATHAN on 12/04/18 1055 Lisinopril (Lisinopril) 5 Mg Tablet, 5 MG PO DAILY, (Reported) Entered as Reported by: GARIMA AYOUB on 09/10/15 1013 Nitroglycerin (Nitroglycerin) 0.4 Mg Tab.subl, 0.4 MG SL UD PRN for CHEST PAIN, (Reported) Entered as Reported by: DULCE FIGUEREDO on 03/29/16916 Ondansetron (Ondansetron Odt) 4 Mg Tab.rapdis, 4 MG PO Q6H PRN for NAUSEA/VOMITING Prescribed by: DAVID NG on 01/02/22 1613 Pantoprazole Sodium (Pantoprazole Sodium) 40 Mg Tablet.dr, 40 MG PO DAILY, (Reported) Entered as Reported by: DULCE FIGUEREDO on 03/29/16916 Review of Systems Review of Systems Constitutional: see HPI EENTM: no symptoms reported Respiratory: no symptoms reported Cardiovascular: no symptoms reported Gastrointestinal: No abdominal pain; diarrhea, nausea, vomiting Genitourinary: No dysuria, No frequency Musculoskeletal: No muscle pain Skin: No rash Psychiatric/Neurological: Denies Headache Hematologic/Lymphatic: Denies Blood Clots Past Jvtcmbk-[id number]-Qbuads Hx Patient Social History Tobacco Use?: No Use of E-Cig and/or Vaping dev: No Substance use?: No Alcohol Use?: No Pt feels they are or have been: No Immunizations Up To Date Tetanus Booster (TDap): Less than 5yrs First/Initial COVID19 Vaccinat: 2020 Second COVID19 Vaccination [place]ane: 2020 COVID19 Vaccine Button Decorating Machine Operator: MODERNA Seasonal Allergies Seasonal Allergies: No Past Medical History Surgery/Hospitalization HX: BILAT KNEE SX 11 STENTS RIGHT SHOULDER SX CATARACTS BILAT. Surgeries: Yes (HERNIA, TOD TKR, LEFT HEEL, BILAT CATARACTS, RT SHOULDER SCOPE) Cardiac, Coronary Stent, Joint Replacement, Orthopedic, Vasectomy Respiratory: No Cardiac: Yes (STENTS x11) Coronary Artery Disease, High Cholesterol, Hypertension Neurological: No Reproductive Disorders: No Sexually Transmitted Disease: No HIV/AIDS: No Genitourinary: No Gastrointestinal: Yes Gastroesophageal Reflux, Chronic Constipation, Ulcer Musculoskeletal: Yes Arthritis, Chronic Back Pain Endocrine: No HEENT: Yes (cataract removed) Cataract Loss of Vision: Bilateral Hearing Impairment: Hard of Hearing, Bilateral Hearing Aide Cancer: No Psychosocial: No Integumentary: No Blood Disorders: No Adverse Reaction/Blood Tranf: No (N/A) Family Medical History Cancer 09 SISTER, Onset:60 years & older (BREAST CA) 03 FATHER, Onset:60 years & older (LUNG CA) 03 MOTHER, Onset:60 years & older (BONE CA) Physical Exam Vital Signs Vital Signs - First Documented 01/02/22 14:45 Temp 37.2 Pulse 97 Resp 17 B/P (MAP) 155/79 (104) Pulse Ox 96 O2 Delivery Room Air Capillary Refill : Height, Weight, BMI Height: 6'0.00" Weight: 234lbs. 0.0oz. 106.541755pg; 31.84 BMI Method:Stated General Appearance: No Apparent Distress, WD/WN HEENT: PERRL/EOMI, Pharynx Normal, Moist Mucous Membranes Neck: Full Range of Motion, Normal Inspection, Non Tender, Supple Respiratory: Chest Non Tender, Lungs Clear, Normal Breath Sounds, No Accessory Muscle Use, No Respiratory Distress Cardiovascular: Regular Rate, Rhythm, Normal Peripheral Pulses Gastrointestinal: No Pulsatile Mass, Non Tender, Soft, Abnormal Bowel Sounds (Hyperactive); No Distended, No Guarding, No Rebound, No Tenderness Rectal: Deferred Extremity: Normal Capillary Refill, Normal Inspection, No Pedal Edema Neurologic/Psychiatric: Alert, Oriented x3, director of informatics II-XII Norm as Tested Skin: Normal Color, Warm/Dry Progress/Results/Core Measures Suspected Sepsis SIRS Temperature: Pulse: Respiratory Rate: Laboratory Tests 01/02/22 14:54: White Blood Count 10.4 Blood Pressure / Mean: Laboratory Tests 01/02/22 14:54: Creatinine 1.31H, INR Comment 0.9, Platelet Count 152, Total Bilirubin 1.1H Results/Orders Lab Results Laboratory Tests Test 01/02/22 14:54 01/02/22 14:56 01/02/22 15:31 Range/Units White Blood Count 10.4 4.3-11.0 10^3/uL Red Blood Count 5.28 4.30-5.52 10^6/uL Hemoglobin 15.9 13.3-17.7 g/dL Hematocrit 47 40-54 % Mean Corpuscular Volume 89 80-99 fL Mean Corpuscular Hemoglobin 30 25-34 pg Mean Corpuscular Hemoglobin Concent 34 32-36 g/dL Red Cell Distribution Width 14.3 10.0-14.5 % Platelet Count 152 130-400 10^3/uL Mean Platelet Volume 10.9 9.0-12.2 fL Immature Granulocyte % (Auto) 0 % Neutrophils (%) (Auto) 86 H 42-75 % Lymphocytes (%) (Auto) 7 L 12-44 % Monocytes (%) (Auto) 7 0-12 % Eosinophils (%) (Auto) 0 0-10 % Basophils (%) (Auto) 0 0-10 % Neutrophils # (Auto) 8.9 H 1.8-7.8 10^3/uL Lymphocytes # (Auto) 0.7 L 1.0-4.0 10^3/uL Monocytes # (Auto) 0.7 0.0-1.0 10^3/uL Eosinophils # (Auto) 0.0 0.0-0.3 10^3/uL Basophils # (Auto) 0.0 0.0-0.1 10^3/uL Immature Granulocyte # (Auto) 0.0 0.0-0.1 10^3/uL Neutrophils % (Manual) 80 % Lymphocytes % (Manual) 2 % Monocytes % (Manual) 6 % Band Neutrophils 6 % Atypical Lymphocytes 1 % Reactive Lymphocytes 5 % Platelet Estimate NORMAL Blood Morphology Comment NORMAL Prothrombin Time 12.4 12.2-14.7 SEC INR Comment 0.9 0.8-1.4 Activated Partial Thromboplast Time 28 24-35 SEC Sodium Level 136 135-145 MMOL/L Potassium Level 4.9 3.6-5.0 MMOL/L Chloride Level 103 98-107 MMOL/L Carbon Dioxide Level 23 21-32 MMOL/L Anion Gap 10 5-14 MMOL/L Blood Urea Nitrogen 20 H 7-18 MG/DL Creatinine 1.31 H 0.60-1.30 MG/DL Estimat Glomerular Filtration Rate 55 BUN/Creatinine Ratio 15 Glucose Level 112 H 70-105 MG/DL Calcium Level 9.0 8.5-10.1 MG/DL Corrected Calcium 8.5-10.1 MG/DL Total Bilirubin 1.1 H 0.1-1.0 MG/DL Aspartate Amino Transf (AST/SGOT) 22 5-34 U/L Alanine Aminotransferase (ALT/SGPT) 21 0-55 U/L Alkaline Phosphatase 87 40-136 U/L C-Reactive Protein 0.30 <0.50 MG/DL Total Protein 6.8 6.4-8.2 GM/DL Albumin 4.6 H 3.2-4.5 GM/DL Lipase 36 8-78 U/L Influenza Type A (RT-PCR) Not Detected Not Detecte Influenza Type B (RT-PCR) Not Detected Not Detecte SARS-CoV-2 RNA (RT-PCR) Not Detected Not Detecte Urine Color YELLOW Urine Clarity CLEAR Urine pH 5.5 5-9 Urine Specific [place] 1.025 H 1.016-1.022 Urine Protein NEGATIVE NEGATIVE Urine Glucose (UA) NEGATIVE NEGATIVE Urine Ketones NEGATIVE NEGATIVE Urine Nitrite NEGATIVE NEGATIVE Urine Bilirubin NEGATIVE NEGATIVE Urine Urobilinogen 0.2 < = 1.0 MG/DL Urine Leukocyte Esterase NEGATIVE NEGATIVE Urine RBC (Auto) NEGATIVE NEGATIVE Urine RBC NONE /HPF Urine WBC RARE /HPF Urine Crystals PRESENT H /LPF Urine Amorphous Sediment FEW EUNICE URATES H /LPF Urine Bacteria FEW H /HPF Urine Casts NONE /LPF Urine Mucus LARGE H /LPF Urine Culture Indicated NO My Orders Orders - DAVID NG MD Monitor-Rhythm Ecg Trace Only (01/02/22 14:59) Ed Iv/Invasive Line Start (01/02/22 14:59) Cbc With Automated Diff (01/02/22 14:59) Comprehensive Metabolic Panel (01/02/22 14:59) Crp Fs (01/02/22 14:59) Protime With Inr (01/02/22 14:59) Partial Thromboplastin Time (01/02/22 14:59) Ns Iv 1000 Ml (Sodium Chloride 0.9%) (01/02/22 15:00) Lipase (01/02/22 14:59) Covid 19 Inhouse Test (01/02/22 14:59) Ua Culture If Indicated (01/02/22 14:59) Influenza A And B By Pcr (01/02/22 14:59) Isolation Central Supply Req (01/02/22 14:59) Manual Differential (01/02/22 14:54) Vital Signs/I&O 01/02/22 01/02/22 14:45 16:16 Temp 37.2 37.2 Pulse 97 84 Resp 17 17 B/P (MAP) 155/79 (104) 143/69 Pulse Ox 96 98 O2 Delivery Room Air Room Air Capillary Refill : Progress Note #1: Progress Note Check basic labs as well as urinalysis and COVID swab. Give IV fluid for hydration. Patient denies having nausea right now so we will defer antiemetic. Progress Note #2: Progress Note Labs are stable without acute significant abnormality. His white blood cell count was at the upper limit of normal at 10.4. Creatinine of 1.31. COVID and influenza were both negative. Patient did appear to be slightly dehydrated but otherwise no acute significant abnormality with his blood work. Encourage fluids and hydration. Discharged on Zofran to try and help settle nausea and make sure he stays hydrated Departure Impression Primary Impression: Nausea vomiting and diarrhea Additional Impression: Dehydration Disposition: 01 HOME, SELF-CARE Condition: Stable Departure-Patient Inst. Decision time for Depature: 16:12 Referrals: FELIX GARCÍA DO (PCP) Primary Care Physician Patient Instructions: Nausea and Vomiting, Adult ED, Dehydration, Adult ED, Diarrhea, Adult ED Add. Discharge Instructions: Stay well hydrated and drink plenty of water and electrolyte drinks. Follow up with clinic for continued concerns or worsening symptoms. All discharge instructions reviewed with patient and/or family. Voiced understanding. Scripts Ondansetron (Ondansetron Odt) 4 Mg Tab.rapdis 4 MG PO Q6H PRN for NAUSEA/VOMITING for 2 Days, #8 TAB 0 Refills Prov: DAVID NG MD 01/02/22 DAVID NG MD Jan 02, 2022 15:07
[2022-01-02 15:10] LABS: BASOPHILS % (AUTO) 0 % (0-10); EOSINOPHILS % (AUTO) 0 % (0-10); HEMATOCRIT 47 % (40-54); HEMOGLOBIN 15.9 g/dL (13.3-17.7); LYMPHOCYTES # (AUTO) 0.7 10^3/uL (1.0-4.0); LYMPHOCYTES % (AUTO) 7 % (12-44); MEAN CORPUSCULAR HEMOGLOBIN 30 pg (25-34); MEAN CORPUSCULAR HGB CONC 34 g/dL (32-36); MEAN CORPUSCULAR VOLUME 89 fL (80-99); MEAN PLATELET VOLUME 10.9 fL (9.0-12.2); MONOCYTES # (AUTO) 0.7 10^3/uL (0.0-1.0); MONOCYTES % (AUTO) 7 % (0-12); NEUTROPHILS # (AUTO) 8.9 10^3/uL (1.8-7.8); NEUTROPHILS % (AUTO) 86 % (42-75); PLATELET COUNT 152 10^3/uL (130-400); WHITE BLOOD COUNT 10.4 10^3/uL (4.3-11.0)
[2022-01-02 15:22] LABS: INR 0.9 (0.8-1.4); PROTHROMBIN TIME PATIENT 12.4 SEC (12.2-14.7)
[2022-01-02 15:37] LABS: CARBON DIOXIDE 23 MMOL/L (21-32); CHLORIDE 103 MMOL/L (98-107); POTASSIUM 4.9 MMOL/L (3.6-5.0); SODIUM 136 MMOL/L (135-145)
[2022-01-02 15:38] LABS: ALANINE AMINOTRANSFERASE 21 U/L (0-55); ALBUMIN 4.6 GM/DL (3.2-4.5); ALKALINE PHOSPHATASE 87 U/L (40-136); BILIRUBIN,TOTAL 1.1 MG/DL (0.1-1.0); BUN/CREATININE RATIO 15; CREATININE SERUM 1.31 MG/DL (0.60-1.30); GFR ESTIMATED 55; GLUCOSE 112 MG/DL (70-105); TOTAL PROTEIN 6.8 GM/DL (6.4-8.2)
[2022-01-02 15:41] LABS: BILIRUBIN,URINE NEGATIVE (NEGATIVE); CLARITY,URINE CLEAR; COLOR,URINE YELLOW; GLUCOSE, URINE (UA) NEGATIVE (NEGATIVE); KETONES,URINE NEGATIVE (NEGATIVE); LEUKOCYTE ESTERASE ,URINE NEGATIVE (NEGATIVE); NITRITE,URINE NEGATIVE (NEGATIVE); PH,URINE 5.5 (5-9); PROTEIN,URINE NEGATIVE (NEGATIVE)
[2022-01-02 15:56] LABS: BACTERIA,URINE FEW /HPF; WBC,URINE RARE /HPF
[2022-01-02 15:57] LABS: AMORPHOUS SEDIMENT,UR FEW AMOR URATES /LPF
[2022-01-02 16:13] LABS: BAND NEUTROPHILS 6 %; NEUTROPHILS % (MANUAL) 80 %
[2022-01-02] MEDS ORDERED: ONDA4TAB11 PO (16:13)
[2022-01-02 16:14] LABS: ATYPICAL LYMPHOCYTES 1 %; LYMPHOCYTES % (MANUAL) 2 %; MONOCYTES % (MANUAL) 6 %; PLATELET ESTIMATE NORMAL; RBC MORPH NORMAL; REACTIVE LYMPHOCYTES 5 %
[2022-01-02 16:16] VITALS: BP 143/69
== END 2022-01-02 16:40 | disposition home or self-care (01) ==
LOC: EDUNIT# 14:40 → ER FS 14:42
DX: E86.0 Dehydration (principal); R11.2 Nausea with vomiting, unspecified; R19.7 Diarrhea, unspecified; Z20.822 Contact with and (suspected) exposure to COVID-19
CPT/HCPCS: 36415; 80053; 81000; 83690; 85007; 85027; 85610; 85730; 86141; 87636; 93041

== ENCOUNTER → 2022-05-26 | Outpatient (CLI) | payer MEDICARE ==
[~2022-05-26] MED LIST changes: +CLOP-31 PO; -CLOP75TA69 PO; +ONDA4TAB11 PO
--- NOTE | 2022-05-26 12:40 | Diagnostic Imaging Report ---
PROCEDURE: CT abdomen without contrast. TECHNIQUE: Multiple contiguous axial images were obtained through the abdomen without the use of intravenous contrast. Auto Exposure Controls were utilized during the CT exam to meet ALARA standards for radiation dose reduction. INDICATION: Left upper quadrant pain for 3 days. COMPARISON: 09/17/2015. FINDINGS: The heart is unremarkable. Subsegmental atelectasis is seen in the right lung base. Cyst is seen in the left kidney measuring 4.2 cm. No evidence of hydronephrosis or obstructing calculi. The liver, spleen, pancreas, and adrenal glands have a normal noncontrast CT appearance. The gallbladder is unremarkable. There is no pathologically enlarged mesenteric or retroperitoneal adenopathy. The included loops of bowel are nondilated. A few scattered diverticula are seen in the descending colon with pericolonic inflammatory changes present. There is no free fluid or free air. No acute osseous abnormalities. There is calcified aortic atherosclerotic plaque. IMPRESSION: 1. Mild uncomplicated diverticulitis involving the mid descending sigmoid colon. No free fluid or free air is seen. No bowel obstruction. Faxed to Nahun Ramon APRN at 12:38 p.m. by kayce. Dictated by: Dictated on workstation # [id number]
== END ==
LOC: RAD 12:00
PROVIDERS: ATTEND Registered Nurse Critical Care Medicine
DX: K57.32 Diverticulitis of large intestine without perforation or abscess without bleeding (principal); K59.09 Other constipation; E86.0 Dehydration; M25.461 Effusion, right knee; I51.9 Heart disease, unspecified; X50.9XXA Other and unspecified overexertion or strenuous movements or postures, initial encounter; S83.281A Other tear of lateral meniscus, current injury, right knee, initial encounter
CPT/HCPCS: 74150

== ENCOUNTER → 2022-06-16 | Outpatient (CLI) | payer MEDICARE ==
--- NOTE | 2022-06-16 14:58 | Diagnostic Imaging Report ---
PROCEDURE: US Renal Bilateral. TECHNIQUE: Multiple real-time grayscale images were obtained over the kidneys in various projections bilaterally. INDICATION: Left renal cyst. COMPARISON: Correlation is made with CT study from 05/26/2022. FINDINGS: Right kidney measures 11.0 x 4.4 x 5.7 cm, and the left kidney measures 9.1 x 4.6 x 6.1 cm. Cortical thickness and echogenicity are normal. No calculi are seen. There is no hydronephrosis. There is a cyst in the upper pole of the left kidney measuring 3.8 x 4.0 x 3.2 cm. No internal vascularity is seen. IMPRESSION: Left renal cyst 4 cm in size corresponding with the CT abnormality. The study is otherwise unremarkable. Dictated by: Dictated on workstation # [id number]
== END ==
LOC: RAD 11:57
PROVIDERS: ATTEND Family Medicine
DX: N28.1 Cyst of kidney, acquired (principal)
CPT/HCPCS: 76770